=== PATIENT | female | born 1945 | race Caucasian/White ===

== ENCOUNTER 2020-08-05 08:29 | Inpatient (IN) | payer MEDICARE, OTHER ==
[~2020-08-05] VITALS: Ht 170.2 cm; Wt 107.6 kg
[2020-08-05] MEDS ORDERED: diphenhydrAMINE 25 MG TAB (BENADRYL) PO PRN (09:15)
[2020-08-05] MEDS ORDERED: ACETAMINOPHEN 325 MG TABLET PO PRN (09:15)
[2020-08-05] MEDS ORDERED: ONDANSETRON 4 MG (ZOFRAN) ORAL DISSOLVE TAB PO PRN (09:15)
[2020-08-05] MEDS ORDERED: guaiFENesin/CODEINE (ROBITUSSIN AC) 10ML UDC PO PRN (09:15)
[2020-08-05] MEDS ORDERED: LACTULOSE SYRUP 10GM/15ML (ENULOSE) 30ML UDC PO PRN (09:15)
[2020-08-05] MEDS ORDERED: DOCUSATE SODIUM 100 MG (COLACE) CAP PO PRN (09:15)
[2020-08-05] MEDS ORDERED: CALCIUM CARBONATE 500 MG (TUMS) TAB.CHEW PO PRN (09:15)
[2020-08-05] MEDS ORDERED: MELATONIN 3 MG TABLET PO PRN (09:15)
[2020-08-05] MEDS ORDERED: BISACODYL 10 MG SUPP (DULCOLAX) PR PRN (09:15)
[2020-08-05] MEDS ORDERED: LOPERAMIDE 2 MG (IMODIUM) TABLET PO PRN (09:15)
[2020-08-05] MEDS ORDERED: FLEET ENEMA ADULT 1 EA BTL PR PRN (09:15)
[2020-08-05] MEDS ORDERED: VIT500TA7 PO (09:52)
[2020-08-05] MEDS ORDERED: BALS750C7 PO (09:52)
[2020-08-05] MEDS ORDERED: NITR-65 PO (09:52)
[2020-08-05] MEDS ORDERED: CETI10TA17 PO (09:52)
[2020-08-05] MEDS ORDERED: [UNRECOGNIZED DRUG - CODE] PO (09:52)
[2020-08-05] MEDS ORDERED: LACT1CAP8 PO (09:52)
[2020-08-05] MEDS ORDERED: FLUT9.9S NSEACH (09:52)
[2020-08-05] MEDS ORDERED: HYDR25TA4 PO (09:52)
[2020-08-05] MEDS ORDERED: PARO20TA5 PO (09:52)
[2020-08-05] MEDS ORDERED: DICY10CA12 PO (09:52)
[2020-08-05] MEDS ORDERED: CRAN400T3 PO (09:52)
[2020-08-05] MEDS ORDERED: ASPI-1238 PO (09:52)
[2020-08-05] MEDS ORDERED: RAME8TAB24 PO (09:52)
[2020-08-05] MEDS ORDERED: MULT-1136 PO (09:52)
[2020-08-05] MEDS ORDERED: IPRA3AMP31 IH (09:52)
[2020-08-05] MEDS ORDERED: MAGN400T39 PO (09:52)
[2020-08-05] MEDS ORDERED: ATEN25TA PO (09:52)
[2020-08-05] MEDS ORDERED: PANT40TA52 PO (09:52)
[2020-08-05] MEDS ORDERED: TEMA15CA PO (09:52)
[2020-08-05] MEDS ORDERED: OXYB10TA29 PO (09:52)
--- NOTE | 2020-08-05 15:27 | PM&R Post Admission Assessment ---
PM&R HP Date of Visit: Aug 05, 2020 Time of Visit: 16:00 History of Present Illness CC: Recovery from bilateral knee arthroplasties by Dr South POD # 2 HPI: This is a 74yoWF clinic patient of Baldomero Johnston PCP and Dr Ashby Cardiology who lives in [place], [place] who presents from [facility] where she under went a bilateral knee replacements. She has had multiple falls recently and has a multi-level house. 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 She uses O2 prn an at night and needs a sleep study. She has a not had a BM yet but passing gas. Urination is normal. Labs remains stable. Checked meds and labs. Pain is controlled with Percocet. Past Opppunz-Xbhsgv-Benkrt Hx Past Med/Social Hx: Reviewed Nursing Past Med/Soc Hx, Reviewed and Corrections made Patient Social History Marrital Status: Employed/Student: retired Alcohol Use: Denies Use Smoking Status: Never a Smoker Immunizations Up To Date Date of Influenza Vaccine: Jan 28, 2020 Past Medical History Surgeries: Appendectomy, Eye Surgery, Hysterectomy, Orthopedic Respiratory: Asthma, Sleep Apnea night time hypoxia Currently Using CPAP: No Currently Using BIPAP: No Cardiac: Hypertension Gastrointestinal: Colitis, Gastroesophageal Reflux, Irritable Bowel Musculoskeletal: Arthritis Psychosocial: Sleep Difficulties, Anxiety, Depression PM&R Allergy/Meds/Data Review Allergies Coded Allergies: Sulfa (Sulfonamide Antibiotics) (Verified Allergy, Unknown, 08/05/20) hylan G-F 20 (Verified Allergy, Unknown, 08/05/20) metoclopramide (Verified Allergy, Unknown, 08/05/20) pregabalin (Verified Allergy, Unknown, 08/05/20) Home Medications Scheduled Aspirin (Aspirin EC), 81 MG PO DAILY, (Reported) Atenolol (Atenolol), 25 MG PO DAILY, (Reported) Balsalazide Disodium (Colazal), 1,500 MG PO TID, (Reported) Cetirizine HCl (Cetirizine HCl), 10 MG PO DAILY, (Reported) Cranberry Fruit (Cranberry), 400 MG PO BID, (Reported) Fluticasone Propionate (Flonase Allergy Relief), 2 SPRAY NSEACH HS, (Reported) Hydrochlorothiazide (Hydrochlorothiazide), 25 MG PO DAILY, (Reported) Lactobacillus Acidophilus (Acidophilus), 1 EACH PO DAILY, (Reported) Magnesium Oxide (Magnesium), 400 MG PO BID, (Reported) Multivitamin (Multivitamin), 1 EACH PO DAILY, (Reported) Nitrofurantoin Monohyd/M-Cryst (Macrobid 100 mg Capsule), 1 TAB PO DAILY, (Re ported) Oxybutynin Chloride (Oxybutynin Chloride ER), 10 MG PO DAILY, (Reported) Pantoprazole Sodium (Pantoprazole Sodium), 40 MG PO DAILY, (Reported) Paroxetine HCl (Paroxetine HCl), 20 MG PO HS, (Reported) Ramelteon (Ramelteon), 8 MG PO HS, (Reported) Temazepam (Temazepam), 15 MG PO HS, (Reported) Vit C/Ascorb Sod/Multivit-Min (Emergen-C 500 mg Chewable Tab), 1,000 MG PO TID, (Reported) Scheduled PRN Dicyclomine HCl (Dicyclomine HCl), 10 MG PO TID PRN for IBS, (Reported) Ipratropium/Albuterol Sulfate (Iprat-Albut 0.5-3(2.5) mg/3 ml), 3 ML IH Q6H PRN for SHORTNESS OF BREATH, (Reported) Discontinued Medications Ascorbic Acid/Multivit-Min (Emergen-C 1,000 mg Variety Pk), 1,000 MG PO, (Reported) Discontinued Reason: Duplicate Order Current Medications Current Medications Reviewed Review of Systems Constitutional: see HPI, malaise, weakness EENTM: no symptoms reported Respiratory: no symptoms reported Cardiovascular: no symptoms reported Gastrointestinal: constipation Genitourinary: no symptoms reported Musculoskeletal: joint pain Skin: no symptoms reported Psychiatric/Neurological: No Symptoms Reported All Other Systems Reviewed Negative Unless Noted: Yes Physical Exam Physical Exam Vital Signs Capillary Refill : Height, Weight, BMI Height: '" Weight: lbs. oz. kg; BMI Method: General Appearance: No Apparent Distress, WD/WN, Chronically ill, Obese Eyes: Bilateral Eye Normal Inspection, Bilateral Eye PERRL HEENT: PERRL/EOMI, Normal ENT Inspection, Pharynx Normal Neck: Full Range of Motion, Normal Inspection, Non Tender, Supple, Carotid Bruit Respiratory: Chest Non Tender, Lungs Clear, Normal Breath Sounds, No Accessory Muscle Use, No Respiratory Distress Cardiovascular: Regular Rate, Rhythm, No Edema, No Gallop, No JVD, No Murmur, Normal Peripheral Pulses Gastrointestinal: Normal Bowel Sounds, No Organomegaly, No Pulsatile Mass, Non Tender, Soft Back: Normal Inspection, No CVA Tenderness, No Vertebral Tenderness Extremity: Normal Capillary Refill, Normal Inspection, Normal Range of Motion, Non Tender, No Calf Tenderness, No Pedal Edema Neurologic/Psychiatric: Alert, Oriented x3, No Motor/Sensory Deficits, Normal Mood/Affect, rewriter II-XII Norm as Tested, Abnormal Gait, Motor Weakness (lower extremities) Skin: Normal Color, Warm/Dry Lymphatic: No Adenopathy PM&R Medical Assessment & Plan REHAB/MEDICAL ASSESSMENT AND PLAN: REHAB IMPAIRMENT GROUP: Bilateral knee replacements ETIOLOGIC DIAGNOSIS: Bilateral knee replacements The comorbidities that impact the patients function and/or functional outcome by: bilateral knee pain, hypoxia, suspected DEYA, falls REHAB PLAN: The patient is being admitted to our comprehensive inpatient rehabilitation facility and can tolerate the intensity of service consisting of at least: 180 minutes of therapy a day, 5 out of 7 days a week Rehab treatment will consist of: PT OT will focus on regaining function with bilateral knee replacements while managing pain and increase ADL's The patient/family has a good understanding of our discharge process and will benefit from an interdisciplinary inpatient rehabilitation program. The patient has potential to make improvement and is in need of at least two of the following multidisciplinary therapies including but not limited to physical, occupational, speech, and prosthetics and orthotics. Additionally the patient will need services from respiratory, nutritional services, wound care, psychology, etc. (Customize this to each patient). Given the patients complex condition and risk of further medical complications, rehabilitation services cannot be safely or effectively provided at a lower level of care such as a alf facility. BARRIERS TO DISCHARGE: Bilateral knee replacements ESTIMATED LOS: 7 days DISPOSITION: Home RELEVANT CHANGES SINCE PREADMISSION SCREENING: I have compared the patients medical and functional status at the time of the preadmission screening and there are: no changes PROGNOSIS: Good REHABILITATION GOALS: 1. PT OT will focus on regaining function with bilateral knee replacements while managing pain and increase ADL's All the above goals were reviewed with the patient and he/she is in agreement. By signing this document, I acknowledge that I have personally performed a full physical examination on this patient within 24 hours of admission to this inpatient rehabilitation facility and have determined the patient to be able to tolerate the above course of treatment at an intensive level for a reasonable period of time. I will be completing a detailed individualized Plan of Care for this patient by day #4 of the patients stay based upon the Preadmission Screen, the Post-Admission Evaluation, and the therapy evaluations. Admission Dx/Comorbidities: (1) Status post bilateral knee replacements ICD Codes: Z96.653 - Presence of artificial knee joint, bilateral (2) Ulcerative colitis ICD Codes: K51.90 - Ulcerative colitis, unspecified, without complications (3) DEYA (obstructive sleep apnea) ICD Codes: G47.33 - Obstructive sleep apnea (adult) (pediatric) (4) Nocturnal hypoxia ICD Codes: G47.34 - Idiopathic sleep related nonobstructive alveolar hypoventilation (5) Hypertension ICD Codes: I10 - Essential (primary) hypertension (6) GERD (gastroesophageal reflux disease) ICD Codes: K21.9 - Gastro-esophageal reflux disease without esophagitis Assessment/Plan Assessment and Plan Assess & Plan/Chief Complaint Assessment: Bilateral knee replacements POD # 2 DEYA Nocturnal hypoxia HTN GERD UC Post op constipation Plan: Monitor knee pain IRF protocol BM SHERRI Kong DO Aug 05, 2020 15:26
[2020-08-05] MEDS ORDERED: DICYCLOMINE 10 MG (BENTYL) CAP PO PRN (15:30)
--- NOTE | 2020-08-05 15:50 | Physical Therapy Evaluation ---
PT Evaluation-General Medical Diagnosis Admission Date Aug 05, 2020 at 14:24 Medical Diagnosis: bilateral total knee revisions Onset Date: Aug 03, 2020 Therapy Diagnosis Therapy Diagnosis: impaired mobility, strength, endurance, ROM Weight Bear Status Weight Bearing/Tolerated Weight Bearing/Tolerated Referral Physician: Sindhu Ayers DO Reason for Referral: Evaluation/Treatment Medical History Additional Medical History hearing loss, asthma, falls, joint pain CASTILLO, memory loss, insomnia, UTI, lactic acidosis, anxiety, arthritis, GERD, urinary incontinence, CTS release, plantar fasciitis Reviewed History: Yes Social History Home: Single Level Current Living Status: Spouse Entry Into Home: Level Entry Prior Prior Level of Function SCALE: Activities may be completed with or without assistive devices. 0-Spricnuhzm-oydrzee completes the activity by him/herself with no assistance from a helper. 5-Set-up or Clean-up Assistance-helper sets up or cleans up; patient completes activity. [place] assists only prior to or following the activity. 4-Supervision or Touching Assistance-helper provides verbal cues and/or touching/steadying and/or contact guard assistance as patient completes activity. Assistance may be provided throughout the activity or intermittently. 3-Partial/Moderate Assistance-helper does LESS THAN HALF the effort. [place] lifts, holds or supports trunk or limbs, but provides less than half the effort. 2-Substantial/Maximal Assistance-helper does MORE THAN HALF the effort. [place] lifts or holds trunk or limbs and provides more than half the effort. 3-Wiypqjebl-arnuxz does ALL the effort. Patient does none of the effort to complete the activity. Or, the assistance of 2 or more helpers is required for the patient to complete the activity. If activity was not attempted, code reason: 7-Patient Refused. 9-Not Applicable-not attempted and the patient did not perform the activity before the current illness, exacerbation or injury. 10-Not Attempted due to Environmental Limitations-(lack of equipment, weather restraints, etc.). 88-Not Attempted due to Medical Conditions or Safety Concerns. Bed Mobility: 6 Transfers (B,C,W/C): 6 Gait: 6 Stairs: 6 Indoor Mobility (Ambulation): Independent Stairs: Independent Patient was using a rolling walker just previous to surgeries PT Evaluation-Current Subjective Patient agrees to PT, has some pain in bilateral knees (/10). Will be co- treating after PT eval due to poor patient mobility, strength, endurance, pain with activity, coordinate UE and LE during activity, safety and reduce risk of falls. Pt/Family Goals to be independent at home Objective Patient Orientation: Person, Place, Situation Attachments: Oxygen ROM/Strength ROM Lower Extremities left knee (flexion 92 degrees, extension +2 degrees), right knee (flexion 109 degrees, has full extension) Sensory Hearing: Impaired Sensation Right Lower Extremit: Intact Sensation Left Lower Extremity: Intact Sensation Lower Extremities Patient states she has some numbness on the bottom of her feet Transfers Roll Left & Right (QC): 6 Sit to Lying (QC): 4 (SBA) Lying to Sitting/Side of Bed(Q: 4 (SBA) Sit to Stand (QC): 4 (CGA) Chair/Cgg-qe-Vjunr Xfer(QC): 4 (CGA) Toilet Transfer (QC): 4 (CGA) Car Transfer (QC): 4 (CGA) Patient performs bed mobility with independence, supine <-> sit with SBA, sit <- > stand and transfers with CGA, car transfer CGA. Occasional cues for hand placement or positioning. Gait Does the Patient Walk?: Yes Mode of Locomotion: Walk Anticipated Mode of Locomotion: Walk Walk 10 feet (QC): 4 Walk 50 ft with 2 Turns(QC): 4 Walk 150 ft (QC): 4 Walking 10ft/uneven surface-QC: 4 Distance: 200', 50', 120', 300'x2 Gait Assistive Device: FWW Comments/Gait Description Patient can ambulate 300' with a rolling walker with CGA (including 50' with at least 2 turns of 90 degrees and 10' over an uneven surface), gait is antalgic and slow Wheelchair Training Does the Pt Use a Wheelchair?: No Wheel 50 ft with 2 turns (QC): 9 Wheel 150 ft (QC): 9 Stairs #of Steps: 1 1 Step (curb) (QC): 4 4 Steps (QC): 88 12 Steps (QC): 88 Walking Assistive Device: Walker Patient can go up and down 1 step using a rolling walker with CGA, cues for foot placement Balance Sitting Static: Normal Sitting Dynamic: Normal Standing Static: Good Standing Dynamic: Good Picking up an Object (QC): 4 Treatment Bathing and dressing. PT performed bed mobility and transfers, ambulation, stair training, assisted with balance and positioning during bathing and dressing, OT worked on bathing and dressing, UE positioning and safety during activity. Also donned CPM, fit to patient's leg and set to 60/-2. Patient in bed post tx with nurse call, phone, tray, all needs met. Assessment/Needs Patient has impaired mobility, strength, endurance, ROM. Patient is CGA with transfers and ambulation. Bilateral knee ROM is coming along well for this point after surgery. Rehab Potential: Fair PT Short Term Goals Short Term Goals Time Frame: August 12, 2020 Roll Left & Right: 6 Sit to lyin Lying to sitting on side of be: 6 Sit to stand: 5 Chair/bwh-ea-rvlrh transfer: 5 Walk 10 feet: 5 Walk 50 feet with two turns: 5 Walk 150 feet: 5 PT Composition Weatherboard Installer Goals Composition Weatherboard Installer Goals PT Composition Weatherboard Installer Goals Time Frame: August 26, 2020 Roll Left & Right (QC): 6 Sit to Lying (QC): 6 Lying-Sitting on Side/Bed(QC): 6 Sit to Stand (QC): 6 Chair/Alw-xd-Wbvpq Xfer(QC): 6 Toilet Transfer (QC): 6 Car Transfer (QC): 6 Does the Patient Walk: Yes Walk 10 feet (QC): 6 Walk 50ft with 2 Turns (QC): 6 Walk 150 ft (QC): 6 Walking 10ft on Uneven Surface: 6 1 Step (curb) (QC): 6 4 Steps (QC): 6 12 Steps (QC): 88 Picking up an Object (QC): 6 Wheel 50 feet with 2 turns (QC: 9 Wheel 150 feet: 9 PT Plan Problem List Problem List: Activity Tolerance, Functional Strength, Safety, Balance, Gait, Transfer, Bed Mobility, ROM Treatment/Plan Treatment Plan: Continue Plan of Care Treatment Plan: Bed Mobility, Education, Functional Activity Ian, Functional Strength, Group Therapy, Gait, Safety, Therapeutic Exercise, Transfers Treatment Duration: August 26, 2020 Frequency: At least 5 of 7 days/Wk (IRF) Estimated Hrs Per Day: 1.5 hours per day Patient and/or Family Agrees t: Yes Safety Risks/Education Patient Education: Gait Training, Transfer Techniques, Steps, Correct Positioning, Safety Issues Teaching Recipient: Patient Teaching Methods: Demonstration, Discussion Response to Teaching: Reinforcement Needed Discharge Recommendations Plan Patient will perform bed mobility and transfer training, balance and endurance training, functional strengthening, stair training, gait training, and education, to improve functional mobility and independence at home. Therapy Discharge Recommendati: Home & Family Time/GCodes Time In: 0 Time Out: 1600 Total Billed Treatment Time: 90 Total Billed Treatment 1 visit EVM 10' FA 80' PT eval from [id number], OT eval from [id number], co-treat with OT from [id number] RADHA WALLACE PT Aug 05, 2020 15:50
--- NOTE | 2020-08-05 16:10 | Occupational Therapy Eval ---
OT Evaluation-General/PLF Medical Diagnosis Admission Date Aug 05, 2020 at 14:24 Medical Diagnosis: B TKA with revisions bilaterally Onset Date: Aug 03, 2020 Therapy Diagnosis Therapy Diagnosis: Decreased ADL status Precautions Precautions/Isolations: Standard Precautions Weight Bear Status Weight Bearing Restriction: Weight Bearing/Tolerated Referral Physician: Sindhu Ayers DO Referral Reason: Activity Tolerance, Self Care, Evaluation/Treatment, Strengthening/ROM Medical History Additional Medical History hearing loss, asthma, falls, joint pain CASTILLO, memory loss, insomnia, UTI, lactic acidosis, anxiety, arthritis, GERD, urinary incontinence, CTS release, plantar fasciitis Current History Bilateral TKA with painful hardware 1-2 years prior, 08/03 revision surgery. Reviewed History: Yes Social History Home: Single Level Current Living Status: Spouse Entry Into Home: Level Entry Steps Into Home: 0 ADL-Prior Level of Function SCALE: Activities may be completed with or without assistive devices. 5-Yvmsbjcfvl-bgusokz completes the activity by him/herself with no assistance from a helper. 5-Set-up or Clean-up Assistance-helper sets up or cleans up; patient completes activity. [place] assists only prior to or following the activity. 4-Supervision or Touching Assistance-helper provides verbal cues and/or touching/steadying and/or contact guard assistance as patient completes activity. Assistance may be provided throughout the activity or intermittently. 3-Partial/Moderate Assistance-helper does LESS THAN HALF the effort. [place] lifts, holds or supports trunk or limbs, but provides less than half the effort. 2-Substantial/Maximal Assistance-helper does MORE THAN HALF the effort. [place] lifts or holds trunk or limbs and provides more than half the effort. 9-Ptxkiitll-iwvxwz does ALL the effort. Patient does none of the effort to complete the activity. Or, the assistance of 2 or more helpers is required for the patient to complete the activity. If activity was not attempted, code reason: 7-Patient Refused. 9-Not Applicable-not attempted and the patient did not perform the activity before the current illness, exacerbation or injury. 10-Not Attempted due to Environmental Limitations-(lack of equipment, weather restraints, etc.). 88-Not Attempted due to Medical Conditions or Safety Concerns. 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 Accompanied by , Elsi. OT/ PT witness car transfer, pt expresses 1/10 bilateral knee pain. Agrees to tx. Pt very pleasant/ safe. Mental Status/Objective Patient Orientation: Person, Place, Situation, Normal For Age Current Glasses/Contacts: No Hearing Aids: No Dentures/Partials: Yes Hand Dominance: Right Upper Extremity ROM WFL BUE Upper Extremity Coordination WFL BUE Upper Extremity Sensation WFL BUE Upper Extremity Strength WFL BUE ADL-Treatment Eating (QC): 6 Oral Hygiene (QC): 6 Shower/Bathe Self (QC): 4 (SBA, pt able to pick items off floor in stance when dropped. COmpletes LB in sit, UB/ hair in stance with good ability.) Upper Body Dressing (QC): 5 (s/u) Lower Body Dressing (QC): 3 (min A threading BLE due to increased fatigue post showering.) On/Off Footwear (QC): 2 (max A donning post shower due to fatigue.) Toileting Hygiene (QC): 4 (SBA in stance ) Other Treatments Pt car transfer with CGA. sits in w/c and wheeled to ARU. Educated on OT/ PT role and ARU expectations. PT evaluation: [id number] OT evaluation: [id number] OT/ PT co-treat to address functional activity tolerance/ safety with OT addressing UE movement, problem solving, ADLs and PT addressing LB movement, balance, and transfers. Pt completes UB screen with WFL all movements and MMT. Pt educated on UE ex program, completes 5 reps of 6/6 exercises. Demo's understanding with minimal cues. Educated to complete 15-20 reps 2x daily over the weekend with no OT through weekend. Pt agrees. Pt ambulates through [place] (see PT for distance) with CGA, fair ability/ endurance. Upon sit to stand, pt expresses increased dizziness. Pt's vitals assessed with 137/67 BP and states that systolic is higher than normal. Pt able to ambulate to room without c/o dizzy. Pt expresses goals as she desires to increase "stamina, and decrease pain." Expresses an increase to 7/10 pain in bilateral knees post ambulation. Pt agrees to showering. Shower transfer with CGA/ min cues, showers and dresses as outlined. Pt is assisted to bed with all needs met, call light in reach, present. Education OT Patient Education: Correct positioning, Exercise program, Home exercise program, Purpose of tx/functional activities, Rehab process, Safety issues, Transfer techniques Teaching Recipient: Patient Teaching Methods: Demonstration, Discussion Response to Teaching: Verbalize Understanding, Return Demonstration OT Short Term Goals Short Term Goals Shower/bathe self: 5 Upper body dressin Lower body dressin Putting on/taking off footwear: 3 OT Anesthesia Resident Goals Anesthesia Resident Goals Time Frame: August 19, 2020 Eating (QC): 6 Oral Hygiene (QC): 6 Toileting Hygiene (QC): 6 Shower/Bathe Self (QC): 6 Upper Body Dressing (QC): 6 Lower Body Dressing (QC): 6 On/Off Footwear (QC): 6 Additional Goals: 1-Demonstrate ADL Tasks, 2-Verbalize Understanding, 3- ImproveStrength/Ian 1=Demonstrate adherence to instructed precautions during ADL tasks. 2=Patient will verbalize/demonstrate understanding of assistive devices/modifications for ADL. 3=Patient will improve strength/tolerance for activity to enable patient to perform ADL's. OT Education/Plan Problem List/Assessment Assessment: Decreased Activ Tolerance, Dependent Transfers, Impaired I ADL's, Impaired Self-Care Skills Discharge Recommendations Plan/Recommendations: Continue POC Therapy Discharge Recommendati: Home & Family Treatment Plan/Plan of Care Treatment,Training & Education: Yes Patient would benefit from OT for education, treatment and training to promote independence in ADL's, mobility, safety and/or upper extremity function for ADL's. Plan of Care: ADL Retraining, Caregiver Training, Functional Mobility, Group Exercise/Act as Ind, UE Funct Exercise/Act Treatment Duration: August 19, 2020 Frequency: At least 5 of 7 days/Wk (IRF) Estimated Hrs Per Day: 1.5 hours per day Agreement: Yes Rehab Potential: Good Time/GCodes Start Time: 14:20 Stop Time: 16:10 Total Time Billed (hr/min): 100 Billed Treatment Time PT evaluation: [id number] OT evaluation: [id number] (10) OT/ PT co-treat: [id number] (90) OT/ PT co-treat to address functional activity tolerance/ safety with OT addressing UE movement, problem solving, ADLs and PT addressing LB movement, balance, and transfers. 1, EVM (10), EX 2, ADL 3= 100 KATERIN HINKLE OTR Aug 05, 2020 16:10
[2020-08-05] MEDS: oxyCODONE/APAP 5/325MG (PERCOCET 5) TABLET PO PRN ×2 (16:34→21:57)
[2020-08-05 16:39] VITALS: BP 140/67
[2020-08-05] MEDS ORDERED: PATIENT MAY USE OWN MED,SINGLE MED PO SCH (17:00)
[2020-08-05] MEDS: DOCUSATE SODIUM 100 MG (COLACE) CAP PO SCH (19:50)
[2020-08-05] MEDS: polyethylene glycoL POWDER 17 GM (MIRALAX) PACK PO SCH (19:50)
[2020-08-05] MEDS: SENNA W/DOCUSATE (SENOKOT S) TABLET PO SCH (19:51)
[2020-08-05 20:00] VITALS: BP 145/75
[2020-08-05] MEDS: FLUTICASONE NASAL SPRAY (FLONASE) 16 GM BTL NS SCH (20:39)
[2020-08-05] MEDS: BALSALAZIDE 750 MG PO SCH (20:41)
[2020-08-05] MEDS: PARoxetine 20 MG (PAXIL) TAB PO SCH (20:42)
[2020-08-05] MEDS: RAMELTEON 8 MG (ROZEREM) TAB PO SCH (20:42)
[2020-08-05] MEDS: TEMAZEPAM 15 MG (RESTORIL) CAP PO SCH (20:42)
[2020-08-05] MEDS: MAGNESIUM OXIDE (MAG-OX)400 MG TAB PO SCH (20:42)
[2020-08-05] MEDS ORDERED: MULTIVIT MIN PO SCH (21:00)
[2020-08-05] MEDS ORDERED: ASCORB SOD PO SCH (21:00)
[2020-08-05] MEDS ORDERED: [UNRECOGNIZED DRUG - OTHER] PO SCH (21:00)
[2020-08-05] MEDS ORDERED: VIT C PO SCH (21:00)
[2020-08-05] MEDS ORDERED: NON-FORMULARY MEDICATION 1 EA EA (Magnesium Oxide (Magnesium) 400 MG) PO SCH (21:00)
[2020-08-05] MEDS ORDERED: NON-FORMULARY MEDICATION 1 EA EA (Fluticasone Propionate (Flonase Allergy Relief) 2 SPRAY) NSEACH SCH (21:00)
[2020-08-05] MEDS ORDERED: NON-FORMULARY MEDICATION 1 EA EA (Cranberry Fruit (Cranberry) 400 MG) PO SCH (21:00)
[2020-08-06] VITALS (7 sets, daily range): BP systolic 92–138; BP diastolic 42–68
[2020-08-06 05:58] LABS: BASOPHILS % (AUTO) 0 % (0-10); EOSINOPHILS # (AUTO) 0.1 10^3/uL (0.0-0.3); EOSINOPHILS % (AUTO) 1 % (0-10); HEMATOCRIT 33 % (35-52); HEMOGLOBIN 10.6 g/dL (11.5-16.0); LYMPHOCYTES # (AUTO) 2.1 10^3/uL (1.0-4.0); LYMPHOCYTES % (AUTO) 30 % (12-44); MEAN CORPUSCULAR HEMOGLOBIN 32 pg (25-34); MEAN CORPUSCULAR HGB CONC 33 g/dL (32-36); MEAN CORPUSCULAR VOLUME 97 fL (80-99); MEAN PLATELET VOLUME 9.7 fL (9.0-12.2); MONOCYTES # (AUTO) 0.6 10^3/uL (0.0-1.0); MONOCYTES % (AUTO) 8 % (0-12); NEUTROPHILS # (AUTO) 4.3 10^3/uL (1.8-7.8); NEUTROPHILS % (AUTO) 61 % (42-75); PLATELET COUNT 178 10^3/uL (130-400)
[2020-08-06 06:23] LABS: ALANINE AMINOTRANSFERASE 21 U/L (0-55); ALBUMIN 3.1 GM/DL (3.2-4.5); ALKALINE PHOSPHATASE 59 U/L (40-136); BILIRUBIN,TOTAL 0.2 MG/DL (0.1-1.0); BUN/CREATININE RATIO 22; CALCIUM 7.9 MG/DL (8.5-10.1); CARBON DIOXIDE 30 MMOL/L (21-32); CHLORIDE 104 MMOL/L (98-107); CREATININE SERUM 0.82 MG/DL (0.60-1.30); GFR ESTIMATED > 60; GLUCOSE 115 MG/DL (70-105); POTASSIUM 3.8 MMOL/L (3.6-5.0); SODIUM 139 MMOL/L (135-145); TOTAL PROTEIN 5.6 GM/DL (6.4-8.2)
[2020-08-06] MEDS: MULTIVIT W/MINERALS TAB (THERAGRAN M) PO SCH (06:32)
[2020-08-06] MEDS: NITROFURANTOIN 100 MG (MACROBID) CAPSULE PO SCH (06:32)
[2020-08-06] MEDS: oxyCODONE/APAP 5/325MG (PERCOCET 5) TABLET PO PRN ×3 (06:32→21:05)
[2020-08-06] MEDS: LORATADINE (CLARITIN) 10 MG TAB PO SCH (07:51)
[2020-08-06] MEDS: MAGNESIUM OXIDE (MAG-OX)400 MG TAB PO SCH ×2 (07:51→21:04)
[2020-08-06] MEDS: LACTOBACILLUS ACIDOPHILUS (PROBIOTIC) CAPSULE PO SCH (07:52)
[2020-08-06] MEDS: OXYBUTYNIN (DITROPAN) 5 MG TAB PO SCH ×2 (07:52→21:04)
[2020-08-06] MEDS: PANTOPRAZOLE 40 MG (PROTONIX) TAB PO SCH (07:52)
[2020-08-06] MEDS: ATENOLOL 25 MG (TENORMIN) TAB PO SCH (07:52)
[2020-08-06] MEDS: ASPIRIN E.C. 81 MG (ECOTRIN) TAB PO SCH (07:52)
[2020-08-06] MEDS: BALSALAZIDE 750 MG PO SCH ×3 (07:53→21:03)
--- NOTE | 2020-08-06 08:45 | Physical Therapy Daily Note ---
PT Daily Note-Current Subjective Patient in bed pre tx, agrees to PT, states she has very little pain right now. Appearance Patient in bed post tx with nurse call, phone, tray, all needs met, polar care on bilaterally Mental Status Patient Orientation: Person, Place, Situation, Normal For Age Attachments: Oxygen Transfers SCALE: Activities may be completed with or without assistive devices. 7-Krgthhqomq-lqltxci completes the activity by him/herself with no assistance from a helper. 5-Set-up or Clean-up Assistance-helper sets up or cleans up; patient completes activity. [place] assists only prior to or following the activity. 4-Supervision or Touching Assistance-helper provides verbal cues and/or touching/steadying and/or contact guard assistance as patient completes activity. Assistance may be provided throughout the activity or intermittently. 3-Partial/Moderate Assistance-helper does LESS THAN HALF the effort. [place] lifts, holds or supports trunk or limbs, but provides less than half the effort. 2-Substantial/Maximal Assistance-helper does MORE THAN HALF the effort. [place] lifts or holds trunk or limbs and provides more than half the effort. 2-Mjdqltoks-nunubn does ALL the effort. Patient does none of the effort to complete the activity. Or, the assistance of 2 or more helpers is required for the patient to complete the activity. If activity was not attempted, code reason: 7-Patient Refused. 9-Not Applicable-not attempted and the patient did not perform the activity before the current illness, exacerbation or injury. 10-Not Attempted due to Environmental Limitations-(lack of equipment, weather restraints, etc.). 88-Not Attempted due to Medical Conditions or Safety Concerns. Roll Left & Right (QC): 6 Sit to Lying (QC): 6 Lying to Sitting/Side of Bed(Q: 6 Sit to Stand (QC): 4 Weight Bearing Weight Bearing/Tolerated Weight Bearing/Tolerated Gait Training Distance: 300' Walk 10 feet (QC): 4 Walk 50 ft with 2 Turns(QC): 4 Walk 150 ft (QC): 4 Gait Persons Needed: 1 Gait Assistive Device: FWW ambulation still slow but improved knee flexion during ambulation Exercises Supine Ex: Ankle pumps, Quad Set, Heel Slides, Short Arc Quads, Straight leg raise Supine Reps: 20 Treatments bed mobility and transfers, ambulation, LE exercise Assessment Current Status: Fair Progress improving functional mobility PT Short Term Goals Short Term Goals Time Frame: August 12, 2020 Roll Left & Right: 6 Sit to lyin Lying to sitting on side of be: 6 Sit to stand: 5 Chair/rax-op-xjapj transfer: 5 Walk 10 feet: 5 Walk 50 feet with two turns: 5 Walk 150 feet: 5 PT Proposal Director Goals Jail Goals PT Jail Goals Time Frame: August 26, 2020 Roll Left & Right (QC): 6 Sit to Lying (QC): 6 Lying-Sitting on Side/Bed(QC): 6 Sit to Stand (QC): 6 Chair/Yfb-oo-Qbzad Xfer(QC): 6 Toilet Transfer (QC): 6 Car Transfer (QC): 6 Does the Patient Walk: Yes Walk 10 feet (QC): 6 Walk 50ft with 2 Turns (QC): 6 Walk 150 ft (QC): 6 Walking 10ft on Uneven Surface: 6 1 Step (curb) (QC): 6 4 Steps (QC): 6 12 Steps (QC): 88 Picking up an Object (QC): 6 Wheel 50 feet with 2 turns (QC: 9 Wheel 150 feet: 9 PT Plan Problem List Problem List: Activity Tolerance, Functional Strength, Safety, Balance, Gait, Transfer, Bed Mobility, ROM Treatment/Plan Treatment Plan: Continue Plan of Care Treatment Plan: Bed Mobility, Education, Functional Activity Ian, Functional Strength, Group Therapy, Gait, Safety, Therapeutic Exercise, Transfers Treatment Duration: August 26, 2020 Frequency: At least 5 of 7 days/Wk (IRF) Estimated Hrs Per Day: 1.5 hours per day Patient and/or Family Agrees t: Yes Safety Risks/Education Patient Education: Gait Training, Transfer Techniques, Correct Positioning, Safety Issues Teaching Recipient: Patient Teaching Methods: Demonstration, Discussion Response to Teaching: Reinforcement Needed Time/GCodes Time In: 818 Time Out: 837 Total Billed Treatment Time: 19 Total Billed Treatment 1 visit FA 19' RADHA WALLACE PT August 06, 2020 08:45
[2020-08-06] MEDS ORDERED: RX-NITROFURANTOIN 100 MG (MACROBID) CAP PPK#2 PO SCH (09:00)
[2020-08-06] MEDS ORDERED: NON-FORMULARY MEDICATION 1 EA EA (Multivitamin 1 EACH) PO SCH (09:00)
[2020-08-06] MEDS ORDERED: NON-FORMULARY MEDICATION 1 EA EA (Lactobacillus Acidophilus (Acidophilus) 1 EACH) PO SCH (09:00)
[2020-08-06] MEDS ORDERED: NON-FORMULARY MEDICATION 1 EA EA (Oxybutynin Chloride (Oxybutynin Chloride ER) 10 MG) PO SCH (09:00)
[2020-08-06] MEDS ORDERED: NON-FORMULARY MEDICATION 1 EA EA (Cetirizine HCl 10 MG) PO SCH (09:00)
--- NOTE | 2020-08-06 10:41 | Individualized Plan of Care ---
Individualized Plan of Care Rehab Nursing IPOC Order Admission Date Aug 05, 2020 at 14:24 Current Orders Orders Admission Order(Inpt,Obs,Sdc) (08/05/20 09:12) Vital Signs: Per Unit Policy ( 08,16,00 (08/05/20 09:12) Karan Rodríguez (08/05/20 09:12) Sequential Compression Device .admit (08/05/20 09:12) Medical Consultant-Inpt Rehab Con (08/05/20 09:12) Rehab Nursing Orders-Ipoc (08/05/20 09:12) Physical Therapy Rehab Orders (08/05/20 09:12) Occupational Therapy Rehab Ord (08/05/20 09:12) Speech Therapy Rehab Orders (08/05/20 09:12) Cbc With Automated Diff (08/06/20 06:00) Comprehensive Metabolic Panel (08/06/20 06:00) Precautions (Aru) (08/05/20 09:12) Weekly Weight WEEK (08/05/20 09:12) Rehab-Intensity Of Therapy (08/05/20 09:12) Initiate Admission Nursing Pro .admission (08/05/20 09:12) Acetaminophen Tablet/Caplet (Tylenol T (08/05/20 09:15) Alprazolam Tablet (Xanax Tablet) (08/05/20 09:15) Calcium Carbonate Chew Tablet (Antacid C (08/05/20 09:15) Diphenhydramine Tablet (Benadryl Tablet) (08/05/20 09:15) Docusate Sodium Capsule (Colace Capsule) (08/05/20 21:00) Docusate Sodium Capsule (Colace Capsule) (08/05/20 09:15) Bisacodyl Suppository (Dulcolax Supposit (08/05/20 09:15) Lactulose Oral Solution (Enulose Oral So (08/05/20 09:15) Na Phos/Na Biphos Enema (Fleet Enema Subhash (08/05/20 09:15) Guaifenesin/Codeine Syrup (Robitussin Ac (08/05/20 09:15) Loperamide Tablet (Imodium Tablet) (08/05/20 09:15) Melatonin Tablet (Melatonin Tablet) (08/05/20 09:15) Polyethylene Glycol Powder Pkt (Miralax (08/05/20 21:00) Ondansetron Oral Dissolve Tab (Zofran (08/05/20 09:15) Senna S Tablet (Senokot S Tablet) (08/05/20 21:00) Initiate Admission Nursing Pro .admission (08/05/20 09:12) Code/Resuscitation (08/05/20 09:12) Admission Arrival Bed Request (08/05/20 14:23) Aspirin Enteric Coated Tablet (Ecotrin T (08/06/20 09:00) Atenolol Tablet (Tenormin Tablet) (08/06/20 09:00) Dicyclomine Capsule (Bentyl Capsule) (08/05/20 15:30) Hydrochlorothiazide Cap/Tablet (Hctz Cap (08/06/20 09:00) Albuterol/Ipra Inhalation Soln (Duoneb I (08/05/20 15:30) Rx-Nitrofurantoin [place] (Rx-Macrobid) (08/06/20 09:00) Pantoprazole Tablet (Protonix Tablet) (08/06/20 09:00) Paroxetine Tablet (Paxil Tablet) (08/05/20 21:00) Ramelteon Tablet (Rozerem Tablet) (08/05/20 21:00) Temazepam Capsule (Restoril Capsule) (08/05/20 21:00) (Nf) Balsalazide Disodium (Colazal) (08/05/20 21:00) (Nf) Cetirizine Hcl (08/06/20 09:00) (Nf) Cranberry Fruit (Cranberry) (08/05/20 21:00) (Nf) Fluticasone Propionate (Flonase All (08/05/20 21:00) (Nf) Lactobacillus Acidophilus (Acidophi (08/06/20 09:00) (Nf) Magnesium Oxide (Magnesium) (08/05/20 21:00) (Nf) Multivitamin (08/06/20 09:00) (Nf) Oxybutynin Chloride (Oxybutynin Chl (08/06/20 09:00) (Nf) Vit C/Ascorb Sod/Multivit-Min (Sandra (08/05/20 21:00) Oxycodone/Apap 5/325mg Tablet (Percocet (08/05/20 15:30) Tizanidine Tablet (Zanaflex Tablet) (08/05/20 15:30) Fluticasone Nasal [place] (Flonase Nasal S (08/05/20 21:00) Lactobacillus Acidophilus Cap (Acidophil (08/06/20 09:00) Magnesium Oxide Tablet (Mag Ox Tablet) (08/05/20 21:00) Therapeutic Multivitamin Tab (Vitamins, (08/06/20 07:00) Loratadine Tablet (Claritin Tablet) (08/06/20 09:00) Nitrofurantoin Capsule,Macro (Macrobid C (08/06/20 07:00) Oxybutynin Tablet (Ditropan Tablet) (08/06/20 09:00) Patient May Use Own Med,Single (Patient (08/05/20 17:00) General/Regular (08/05/20 Dinner) Nursing Communication (Order) (08/05/20 19:48) Patient Visit (08/06/20 ) Functional Activities, Ea 15 (08/06/20 ) Ns Iv 500 Ml (Sodium Chloride 0.9%) (08/06/20 13:00) Ns Iv 500 Ml (Sodium Chloride 0.9%) (08/06/20 13:00) Rehab Nursing Orders: Ongoing Assess. of Cognitive Status, Ongoing Assess. of Function Status, Bladder Management, Bladder Scan, Bladder Training, Bowel Management, Bowel Training, Disease Management & Educaiton, DVT Prophylaxis, Fall Prevention, Fluid/Electrolyte/Nutrition Mgmt, Infection Prevention, Medication Management & Education, Management of Risks & Complications, Nutrition Management, Pain Management, Patient/Family Support, Safety Management Intensity of Therapy to be met Patient to be seen: Min.3h per day/5 of 7d PT IPOC Problem List: Activity Tolerance, Functional Strength, Safety, Balance, Gait, Transfer, Bed Mobility, ROM Treatment Plan: Continue Plan of Care Bed Mobility, Education, Functional Activity Ian, Functional Strength, Group Therapy, Gait, Safety, Therapeutic Exercise, Transfers Treatment Duration: August 26, 2020 Frequency: At least 5 of 7 days/Wk (IRF) Estimated Hrs Per Day: 1.5 hours per day OT IPOC Problems: Decreased Activ Tolerance, Dependent Transfers, Impaired I ADL's, Impaired Self-Care Skills OT Treatment, Training and Edu: Yes Plan of Care: ADL Retraining, Caregiver Training, Functional Mobility, Group Exercise/Act as Ind, UE Funct Exercise/Act Treatment Duration: August 19, 2020 Frequency: At least 5 of 7 days/Wk (IRF) Estimated Hrs Per Day: 1.[address] IPOC Speech Therapy Treatment Plan: Discontinue ST, Goals Met Treatment Duration: Aug 05, 2020 Frequency: Modified Program (IRF) Estimated Hrs Per Day: Other Medical Consultant/Case Mgmt Medical Consultant/Case Managemen: Discharge Planning Dietitian/Refrigerator Repairman Dietitian/Refrigerator Repairman to monitor nutritional status and make changes and/or recommendations as needed and work with speech pathology on dietary upgrades as the occur. Physician IPOC Medical Issues being managed closely and that require the 24 hour availability of a physician: Recent bilateral knee replacements with severe pain and nocturnal hypoxia with hypotension and weakness after diarrhea once laxatives were effective requiring IVF will need close monitoring Medical Issues: Bowel/Bladder Function, DVT Prophylaxis, Falls Precautions, Fluid/Electrolyte/Nutrition Balance, Infection Protection, Pain Management Brief Synthesis of Preadmission Screen, Post-Admission Evaluation, and Therapy Evaluations: PT OT will focus on regaining function with ambulation and prevent falls while OT will help increase ADL independence in order to return home to independence Medical Prognosis: Good Anticipated Length of Stay: 6 days SHERRI CARBAJAL DO August 06, 2020 10:41
--- NOTE | 2020-08-06 10:41 | PM&R Progress Note ---
Subjective HPI/CC On Admission Date Seen by Provider: August 06, 2020 Time Seen by Provider: 10:45 Subjective/Events-last exam 08/06/20: Patient doing well Diarrhea all night after suppository and laxatives were given since post op Dizziness and mild hypotension noted so holding HCTZ and Atenolol RN called me back later and told me her BP was 92/50 and she felt weak so ordered NS 500cc IV bolus then 100cc/hr Labs reviewed today no evidence of sepsis No fever no elevated wbc Review of Systems General: Fatigue Musculoskeletal: leg pain Objective Exam Vital Signs Vital Signs Date Time Temp Pulse Resp B/P (MAP) Pulse Ox O2 Delivery O2 Flow Rate FiO2 08/06/20 14:39 100 Nasal Cannula 1.00 08/06/20 13:03 57 102/56 (71) 08/06/20 08:59 36.8 18 Capillary Refill : General Appearance: No Apparent Distress, WD/WN, Chronically ill, Obese HEENT: PERRL/EOMI, Normal ENT Inspection, Pharynx Normal Neck: Full Range of Motion, Normal Inspection, Non Tender, Supple, Carotid Bruit Respiratory: Chest Non Tender, Lungs Clear, Normal Breath Sounds, No Accessory Muscle Use, No Respiratory Distress Cardiovascular: Regular Rate, Rhythm, No Edema, No Gallop, No JVD, No Murmur, Normal Peripheral Pulses Gastrointestinal: Normal Bowel Sounds, No Organomegaly, No Pulsatile Mass, Non Tender, Soft Back: Normal Inspection, No CVA Tenderness, No Vertebral Tenderness Extremity: Normal Capillary Refill, Normal Inspection, Normal Range of Motion, Non Tender, No Calf Tenderness, No Pedal Edema Neurologic/Psychiatric: Alert, Oriented x3, No Motor/Sensory Deficits, Normal Mood/Affect, 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 FIM Transfers Therapy Code Descriptions/Definitions Functional [place] Measure: 0=Not Assessed/NA 4=Minimal Assistance 1=Total Assistance 5=Supervision or Setup 2=Maximal Assistance 6=Modified [place] 3=Moderate Assistance 7=Complete IndependenceSCALE: Activities may be completed with or without assistive devices. 6-Kwkoktagag-hwmmcof completes the activity by him/herself with no assistance from a helper. 5-Set-up or Clean-up Assistance-helper sets up or cleans up; patient completes activity. [place] assists only prior to or following the activity. 4-Supervision or Touching Assistance-helper provides verbal cues and/or touching/steadying and/or contact guard assistance as patient completes activity. Assistance may be provided throughout the activity or intermittently. 3-Partial/Moderate Assistance-helper does LESS THAN HALF the effort. [place] lifts, holds or supports trunk or limbs, but provides less than half the effort. 2-Substantial/Maximal Assistance-helper does MORE THAN HALF the effort. [place] lifts or holds trunk or limbs and provides more than half the effort. 4-Qzunqgkzk-teobsx does ALL the effort. Patient does none of the effort to complete the activity. Or, the assistance of 2 or more helpers is required for the patient to complete the activity. If activity was not attempted, code reason: 7-Patient Refused. 9-Not Applicable-not attempted and the patient did not perform the activity before the current illness, exacerbation or injury. 10-Not Attempted due to Environmental Limitations-(lack of equipment, weather restraints, etc.). 88-Not Attempted due to Medical Conditions or Safety Concerns. Roll Left to Right (QC): 6 Sit to Lying (QC): 6 Sit to Stand (QC): 4 Chair/Kqa-sq-Rhucy Xfer(QC): 4 (CGA) Car Transfer (QC): 4 (CGA) Gait Training Does the Patient Walk?: Yes Distance: 300' Walk 10 feet (QC): 4 Walk 50 ft with 2 Turns(QC): 4 Walk 150 ft (QC): 4 Walking 10ft/uneven surface-QC: 4 Gait Persons Needed: 1 Gait Assistive Device: FWW Wheelchair Training Does the Pt Use a Wheelchair?: No Wheel 50 ft with 2 turns (QC): 9 Wheel 150 ft (QC): 9 Stair Training #of Steps: 1 1 Step (curb) (QC): 4 4 Steps (QC): 88 12 Steps (QC): 88 Balance Picking up an Object (QC): 4 ADL-Treatment Eating (QC): 6 Oral Hygiene (QC): 6 Shower/Bathe Self (QC): 4 (SBA, pt able to pick items off floor in stance when dropped. COmpletes LB in sit, UB/ hair in stance with good ability.) Upper Body Dressing (QC): 5 (s/u) Lower Body Dressing (QC): 3 (min A threading BLE due to increased fatigue post showering.) On/Off Footwear (QC): 2 (max A donning post shower due to fatigue.) Toileting Hygiene (QC): 4 (SBA in stance ) Assessment/Plan Assessment and Plan Assess & Plan/Chief Complaint Assessment: Bilateral knee replacements POD # 2 DEYA Nocturnal hypoxia HTN GERD UC Post op constipation now resolved Hypotension with weakness prompting IVF 08/06/20 Plan: Monitor knee pain IRF protocol BM regimen 08/06/20: Monitor dizziness Give IVF Hold BP meds (1) Status post bilateral knee replacements (2) Ulcerative colitis (3) DEYA (obstructive sleep apnea) (4) Nocturnal hypoxia (5) Hypertension (6) GERD (gastroesophageal reflux disease) SHERRI CARBAJAL DO August 06, 2020 10:41
[2020-08-06] MEDS: DOCUSATE SODIUM 100 MG (COLACE) CAP PO SCH ×2 (11:23→19:38)
[2020-08-06] MEDS: SENNA W/DOCUSATE (SENOKOT S) TABLET PO SCH ×2 (11:23→19:38)
[2020-08-06] MEDS: polyethylene glycoL POWDER 17 GM (MIRALAX) PACK PO SCH ×2 (11:23→19:38)
[2020-08-06] MEDS ORDERED: NS IV 500 ML 500 ML IV SCH (13:00)
[2020-08-06] MEDS: NS IV 500 ML 500 ML IV SCH ×2 (13:01→16:11)
[2020-08-06] MEDS: RT-ALBUTEROL/IPRATROPIUM 3 ML (DUONEB) VIAL IH PRN (14:39)
[2020-08-06] MEDS: FLUTICASONE NASAL SPRAY (FLONASE) 16 GM BTL NS SCH (21:03)
[2020-08-06] MEDS: PARoxetine 20 MG (PAXIL) TAB PO SCH (21:04)
[2020-08-06] MEDS: RAMELTEON 8 MG (ROZEREM) TAB PO SCH (21:04)
[2020-08-06] MEDS: TEMAZEPAM 15 MG (RESTORIL) CAP PO SCH (21:04)
[2020-08-07] MEDS: oxyCODONE/APAP 5/325MG (PERCOCET 5) TABLET PO PRN ×4 (02:20→20:41)
[2020-08-07] MEDS: NITROFURANTOIN 100 MG (MACROBID) CAPSULE PO SCH (06:29)
[2020-08-07] MEDS: MULTIVIT W/MINERALS TAB (THERAGRAN M) PO SCH (06:29)
[2020-08-07 07:27] VITALS: BP 120/75
[2020-08-07] MEDS: OXYBUTYNIN (DITROPAN) 5 MG TAB PO SCH ×2 (09:06→20:40)
[2020-08-07] MEDS: LACTOBACILLUS ACIDOPHILUS (PROBIOTIC) CAPSULE PO SCH (09:06)
[2020-08-07] MEDS: MAGNESIUM OXIDE (MAG-OX)400 MG TAB PO SCH ×2 (09:06→20:40)
[2020-08-07] MEDS: LORATADINE (CLARITIN) 10 MG TAB PO SCH (09:07)
[2020-08-07] MEDS: ASPIRIN E.C. 81 MG (ECOTRIN) TAB PO SCH (09:07)
[2020-08-07] MEDS: PANTOPRAZOLE 40 MG (PROTONIX) TAB PO SCH (09:07)
[2020-08-07] MEDS: polyethylene glycoL POWDER 17 GM (MIRALAX) PACK PO SCH ×2 (09:10→19:19)
[2020-08-07] MEDS: SENNA W/DOCUSATE (SENOKOT S) TABLET PO SCH ×2 (09:10→19:20)
[2020-08-07] MEDS: DOCUSATE SODIUM 100 MG (COLACE) CAP PO SCH ×2 (09:10→19:19)
[2020-08-07] MEDS: ATENOLOL 25 MG (TENORMIN) TAB PO SCH (09:12)
[2020-08-07] MEDS: BALSALAZIDE 750 MG PO SCH ×3 (09:14→20:39)
--- NOTE | 2020-08-07 09:21 | PM&R Progress Note ---
Subjective HPI/CC On Admission Date Seen by Provider: August 07, 2020 Time Seen by Provider: 09:30 Subjective/Events-last exam 08/07/20: Feels much better since IVF given yesterday HR still 50's holding Atenolol O2 maintained Mammogram will need to be completed at day of DC Labs due tomorrow 08/06/20: Patient doing well Diarrhea all night after suppository and laxatives were given since post op Dizziness and mild hypotension noted so holding HCTZ and Atenolol RN called me back later and told me her BP was 92/50 and she felt weak so ordered NS 500cc IV bolus then 100cc/hr Labs reviewed today no evidence of sepsis No fever no elevated wbc Review of Systems General: Fatigue, Malaise Gastrointestinal: Diarrhea Neurological: Weakness Objective Exam Vital Signs Vital Signs Date Time Temp Pulse Resp B/P (MAP) Pulse Ox O2 Delivery O2 Flow Rate FiO2 08/07/20 21:11 37.0 08/07/20 21:00 Nasal Cannula 2.00 08/07/20 19:58 70 20 99/51 (67) 96 Capillary Refill : General Appearance: No Apparent Distress, WD/WN, Chronically ill, Obese HEENT: PERRL/EOMI, Normal ENT Inspection, Pharynx Normal Neck: Full Range of Motion, Normal Inspection, Non Tender, Supple, Carotid Bruit Respiratory: Chest Non Tender, Lungs Clear, Normal Breath Sounds, No Accessory Muscle Use, No Respiratory Distress Cardiovascular: Regular Rate, Rhythm, No Edema, No Gallop, No JVD, No Murmur, Normal Peripheral Pulses Gastrointestinal: Normal Bowel Sounds, No Organomegaly, No Pulsatile Mass, Non Tender, Soft Back: Normal Inspection, No CVA Tenderness, No Vertebral Tenderness Extremity: Normal Capillary Refill, Normal Inspection, Normal Range of Motion, Non Tender, No Calf Tenderness, No Pedal Edema Neurologic/Psychiatric: Alert, Oriented x3, No Motor/Sensory Deficits, Normal Mood/Affect, 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 FIM Transfers Therapy Code Descriptions/Definitions Functional [place] Measure: 0=Not Assessed/NA 4=Minimal Assistance 1=Total Assistance 5=Supervision or Setup 2=Maximal Assistance 6=Modified [place] 3=Moderate Assistance 7=Complete IndependenceSCALE: Activities may be completed with or without assistive devices. 4-Dstywlscpn-medyrkh completes the activity by him/herself with no assistance from a helper. 5-Set-up or Clean-up Assistance-helper sets up or cleans up; patient completes activity. [place] assists only prior to or following the activity. 4-Supervision or Touching Assistance-helper provides verbal cues and/or touching/steadying and/or contact guard assistance as patient completes activity. Assistance may be provided throughout the activity or intermittently. 3-Partial/Moderate Assistance-helper does LESS THAN HALF the effort. [place] lifts, holds or supports trunk or limbs, but provides less than half the effort. 2-Substantial/Maximal Assistance-helper does MORE THAN HALF the effort. [place] lifts or holds trunk or limbs and provides more than half the effort. 0-Tukohqyni-tknhaa does ALL the effort. Patient does none of the effort to complete the activity. Or, the assistance of 2 or more helpers is required for the patient to complete the activity. If activity was not attempted, code reason: 7-Patient Refused. 9-Not Applicable-not attempted and the patient did not perform the activity before the current illness, exacerbation or injury. 10-Not Attempted due to Environmental Limitations-(lack of equipment, weather restraints, etc.). 88-Not Attempted due to Medical Conditions or Safety Concerns. Roll Left to Right (QC): 6 Sit to Lying (QC): 6 Sit to Stand (QC): 4 Chair/Fmw-ec-Sjsnq Xfer(QC): 4 (CGA) Car Transfer (QC): 4 (CGA) Gait Training Does the Patient Walk?: Yes Distance: 300' Walk 10 feet (QC): 4 Walk 50 ft with 2 Turns(QC): 4 Walk 150 ft (QC): 4 Walking 10ft/uneven surface-QC: 4 Gait Persons Needed: 1 Gait Assistive Device: FWW Wheelchair Training Does the Pt Use a Wheelchair?: No Wheel 50 ft with 2 turns (QC): 9 Wheel 150 ft (QC): 9 Stair Training #of Steps: 1 1 Step (curb) (QC): 4 4 Steps (QC): 88 12 Steps (QC): 88 Balance Picking up an Object (QC): 4 ADL-Treatment Eating (QC): 6 Oral Hygiene (QC): 6 Shower/Bathe Self (QC): 4 (SBA, pt able to pick items off floor in stance when dropped. COmpletes LB in sit, UB/ hair in stance with good ability.) Upper Body Dressing (QC): 5 (s/u) Lower Body Dressing (QC): 3 (min A threading BLE due to increased fatigue post showering.) On/Off Footwear (QC): 2 (max A donning post shower due to fatigue.) Toileting Hygiene (QC): 4 (SBA in stance ) Assessment/Plan Assessment and Plan Assess & Plan/Chief Complaint Assessment: Bilateral knee replacements POD # 2 DEYA Nocturnal hypoxia HTN GERD UC Post op constipation now resolved Hypotension with weakness prompting IVF 08/06/20 Plan: Monitor knee pain IRF protocol BM regimen 08/06/20: Monitor dizziness Give IVF Hold BP meds 08/07/20: Monitor BP Increase PO fluids (1) Status post bilateral knee replacements (2) Ulcerative colitis (3) DEYA (obstructive sleep apnea) (4) Nocturnal hypoxia (5) Hypertension (6) GERD (gastroesophageal reflux disease) SHERRI CARBAJAL DO August 07, 2020 09:21
[2020-08-07 19:58] VITALS: BP 99/51
[2020-08-07] MEDS: FLUTICASONE NASAL SPRAY (FLONASE) 16 GM BTL NS SCH (20:39)
[2020-08-07] MEDS: TEMAZEPAM 15 MG (RESTORIL) CAP PO SCH (20:40)
[2020-08-07] MEDS: PARoxetine 20 MG (PAXIL) TAB PO SCH (20:40)
[2020-08-07] MEDS: RAMELTEON 8 MG (ROZEREM) TAB PO SCH (20:40)
[2020-08-07] MEDS: ALPRAZolam 0.25 MG (XANAX) TAB PO PRN (23:15)
--- NOTE | 2020-08-08 05:23 | PM&R Progress Note ---
Subjective HPI/CC On Admission Date Seen by Provider: August 08, 2020 Time Seen by Provider: 08:30 Subjective/Events-last exam 08/08/20: Pt doing pretty well Hgb 10.9 Right knee really hurts so I will give her a one time dose of 10 mg of Oxycodone since her last dose was at at 0630 hours Able to walk with therapy 08/07/20: Feels much better since IVF given yesterday HR still 50's holding Atenolol O2 maintained Mammogram will need to be completed at day of DC Labs due tomorrow 08/06/20: Patient doing well Diarrhea all night after suppository and laxatives were given since post op Dizziness and mild hypotension noted so holding HCTZ and Atenolol RN called me back later and told me her BP was 92/50 and she felt weak so ordered NS 500cc IV bolus then 100cc/hr Labs reviewed today no evidence of sepsis No fever no elevated wbc Review of Systems General: Fatigue, Malaise Musculoskeletal: leg pain Neurological: Weakness, Incoordination Objective Exam Vital Signs Vital Signs Date Time Temp Pulse Resp B/P (MAP) Pulse Ox O2 Delivery O2 Flow Rate FiO2 08/08/20 20:36 Nasal Cannula 2.00 08/08/20 20:00 36.4 73 20 134/63 (86) 98 Capillary Refill : General Appearance: No Apparent Distress, WD/WN, Chronically ill, Obese HEENT: PERRL/EOMI, Normal ENT Inspection, Pharynx Normal Neck: Full Range of Motion, Normal Inspection, Non Tender, Supple, Carotid Bruit Respiratory: Chest Non Tender, Lungs Clear, Normal Breath Sounds, No Accessory Muscle Use, No Respiratory Distress Cardiovascular: Regular Rate, Rhythm, No Edema, No Gallop, No JVD, No Murmur, Normal Peripheral Pulses Gastrointestinal: Normal Bowel Sounds, No Organomegaly, No Pulsatile Mass, Non Tender, Soft Back: Normal Inspection, No CVA Tenderness, No Vertebral Tenderness Extremity: Normal Capillary Refill, Normal Inspection, Normal Range of Motion, Non Tender, No Calf Tenderness, No Pedal Edema Neurologic/Psychiatric: Alert, Oriented x3, No Motor/Sensory Deficits, Normal Mood/Affect, confidential investigator II-XII Norm as Tested, Abnormal Gait, Motor Weakness (lower extremities) Skin: Normal Color, Warm/Dry Lymphatic: No Adenopathy Results/Procedures Lab Laboratory Tests 08/08/20 05:35 Patient resulted labs reviewed. FIM Transfers Therapy Code Descriptions/Definitions Functional [place] Measure: 0=Not Assessed/NA 4=Minimal Assistance 1=Total Assistance 5=Supervision or Setup 2=Maximal Assistance 6=Modified [place] 3=Moderate Assistance 7=Complete IndependenceSCALE: Activities may be completed with or without assistive devices. 2-Tlyfuxooez-dllowlv completes the activity by him/herself with no assistance from a helper. 5-Set-up or Clean-up Assistance-helper sets up or cleans up; patient completes activity. [place] assists only prior to or following the activity. 4-Supervision or Touching Assistance-helper provides verbal cues and/or touching/steadying and/or contact guard assistance as patient completes activity. Assistance may be provided throughout the activity or intermittently. 3-Partial/Moderate Assistance-helper does LESS THAN HALF the effort. [place] lifts, holds or supports trunk or limbs, but provides less than half the effort. 2-Substantial/Maximal Assistance-helper does MORE THAN HALF the effort. [place] lifts or holds trunk or limbs and provides more than half the effort. 2-Bxkhizxnr-pfkpxe does ALL the effort. Patient does none of the effort to complete the activity. Or, the assistance of 2 or more helpers is required for the patient to complete the activity. If activity was not attempted, code reason: 7-Patient Refused. 9-Not Applicable-not attempted and the patient did not perform the activity before the current illness, exacerbation or injury. 10-Not Attempted due to Environmental Limitations-(lack of equipment, weather restraints, etc.). 88-Not Attempted due to Medical Conditions or Safety Concerns. Roll Left to Right (QC): 6 Sit to Lying (QC): 6 Sit to Stand (QC): 4 Chair/Bvs-dr-Qzdnj Xfer(QC): 4 (CGA) Car Transfer (QC): 4 (CGA) Gait Training Does the Patient Walk?: Yes Distance: 300' Walk 10 feet (QC): 4 Walk 50 ft with 2 Turns(QC): 4 Walk 150 ft (QC): 4 Walking 10ft/uneven surface-QC: 4 Gait Persons Needed: 1 Gait Assistive Device: FWW Wheelchair Training Does the Pt Use a Wheelchair?: No Wheel 50 ft with 2 turns (QC): 9 Wheel 150 ft (QC): 9 Stair Training #of Steps: 1 1 Step (curb) (QC): 4 4 Steps (QC): 88 12 Steps (QC): 88 Balance Picking up an Object (QC): 4 ADL-Treatment Eating (QC): 6 Oral Hygiene (QC): 6 Shower/Bathe Self (QC): 4 (SBA, pt able to pick items off floor in stance when dropped. COmpletes LB in sit, UB/ hair in stance with good ability.) Upper Body Dressing (QC): 5 (s/u) Lower Body Dressing (QC): 3 (min A threading BLE due to increased fatigue post showering.) On/Off Footwear (QC): 2 (max A donning post shower due to fatigue.) Toileting Hygiene (QC): 4 (SBA in stance ) Assessment/Plan Assessment and Plan Assess & Plan/Chief Complaint Assessment: Bilateral knee replacements POD # 2 DEYA Nocturnal hypoxia HTN GERD UC Post op constipation now resolved Hypotension with weakness prompting IVF 08/06/20 Plan: Monitor knee pain IRF protocol BM regimen 08/06/20: Monitor dizziness Give IVF Hold BP meds 08/07/20: Monitor BP Increase PO fluids 08/08/20: Monitor pain Monitor BP (1) Status post bilateral knee replacements (2) Ulcerative colitis (3) DEYA (obstructive sleep apnea) (4) Nocturnal hypoxia (5) Hypertension (6) GERD (gastroesophageal reflux disease) SHERRI CARBAJAL DO August 08, 2020 05:23
[2020-08-08 05:49] LABS: BASOPHILS % (AUTO) 1 % (0-10); EOSINOPHILS # (AUTO) 0.2 10^3/uL (0.0-0.3); EOSINOPHILS % (AUTO) 4 % (0-10); HEMATOCRIT 34 % (35-52); HEMOGLOBIN 10.9 g/dL (11.5-16.0); LYMPHOCYTES % (AUTO) 33 % (12-44); MEAN CORPUSCULAR HEMOGLOBIN 32 pg (25-34); MEAN CORPUSCULAR HGB CONC 32 g/dL (32-36); MEAN CORPUSCULAR VOLUME 99 fL (80-99); MEAN PLATELET VOLUME 9.4 fL (9.0-12.2); MONOCYTES # (AUTO) 0.4 10^3/uL (0.0-1.0); MONOCYTES % (AUTO) 7 % (0-12); NEUTROPHILS # (AUTO) 3.3 10^3/uL (1.8-7.8); NEUTROPHILS % (AUTO) 55 % (42-75); PLATELET COUNT 177 10^3/uL (130-400)
[2020-08-08 06:09] LABS: ALANINE AMINOTRANSFERASE 26 U/L (0-55); ALBUMIN 3.2 GM/DL (3.2-4.5); ALKALINE PHOSPHATASE 60 U/L (40-136); BILIRUBIN,TOTAL 0.4 MG/DL (0.1-1.0); BUN/CREATININE RATIO 17; CALCIUM 8.5 MG/DL (8.5-10.1); CARBON DIOXIDE 30 MMOL/L (21-32); CHLORIDE 103 MMOL/L (98-107); CREATININE SERUM 0.88 MG/DL (0.60-1.30); GFR ESTIMATED > 60; GLUCOSE 107 MG/DL (70-105); POTASSIUM 4.2 MMOL/L (3.6-5.0); SODIUM 142 MMOL/L (135-145)
[2020-08-08] MEDS: oxyCODONE/APAP 5/325MG (PERCOCET 5) TABLET PO PRN ×3 (06:34→20:30)
[2020-08-08] MEDS: MULTIVIT W/MINERALS TAB (THERAGRAN M) PO SCH (06:34)
[2020-08-08] MEDS: NITROFURANTOIN 100 MG (MACROBID) CAPSULE PO SCH (06:34)
--- NOTE | 2020-08-08 07:46 | ST Cognitive Linguistic Eval ---
Speech Evaluation-General Medical Diagnosis bilateral total knee revisions Onset Date: Aug 03, 2020 Therapy Diagnosis Therapy Diagnosis: Cognitive Communication Referral Referring Physician: Dr. Ayers Medical History Reviewed History: Yes Social History Current Living Status: Spouse Speech PLF-Current Status Prior Level of Function Patient lives with her where she was independent for her daily needs. Subjective Patient was resting in her bed c/o pain, however she was able to complete the cognitive assessment. Language Eval: Auditory Comprehends Simple Yes/No Ques: Functional Indent/Objects Multiple [place]: Functional Ident/Pics in Multiple [place]: Functional Follows 1-Step Commands: Functional Follows Complex Directions: Functional Follows General Conversations: Functional Language Eval: Verbal Language Completes Spontaneous Greeting: Functional Produces Auto, Serial Info: Functional Imitates Simple Words/Phrases: Functional Word Finding: Functional Requests Basic Needs: Functional States Basic Personal Info: Functional Expresses Complex Ideas: Functional Objective Cognitive Domain Attention: WNL Memory: Moderate Problem Solving: Functional Executive Functions: WNL Visuospatial Skills: WNL Composite Severity Rating: WNL Clock Drawing Severity Rating: WNL Objective Formal/Standardized Tests [facility] Results 29/30, within normal limits Oral Motor/Speech Production Within Normal Limits Impression Patient is a pleasant 74 y/o female who was admitted to ARU s/p bilateral knee surgery. Patient was given the UMS at bedside with a score of 29/30 obtained. This score is within normal range of function. At this time further ST services are not needed. Speech Patient Assess Expression of Ideas/Wants: Expression (4) Understanding Verbal Content: Understands (4) Brief Interview-Mental Status: Yes Repetition of Three Words: Three (3) Temporal Orientation: Year: Correct (3) Temporal Orientation: Month: Accurate within 5 days(2) Temporal Orientation: Day: Correct (1) Recall : Wear to say "Sock": Yes, no cue required (2) Recall : Color: Yes, no cue required (2) Recall : Bed: Yes, no cue required (2) Memory/Recall Ability: Current season, That he or she is in a hsp/hsp unit Speech-Plan Patient/Family Goals Patient/Family Goals: Patient plans to return to her home where she lives with her upon discharge. Treatment Plan Speech Therapy Treatment Plan: Discontinue ST Treatment Duration: August 08, 2020 Frequency: 1 time per week Estimated Hrs Per Day: .25 hour per day Rehab Potential: Fair Barriers to Learning: None identified Pt/Family Agrees to Plan: Yes Safety Risks/Education Teaching Recipient: Patient Teaching Methods: Discussion Response to Teaching: Verbalize Understanding Education Topics Provided: Safety within her room, communication of wants/needs Time Speech Therapy Time In: 07:15 Speech Therapy Time Out: 07:30 Total Billed Time: 15 Billed Treatment Time 1, SPSNDCOMP JOSEFINA Jo August 08, 2020 07:46
[2020-08-08 08:11] VITALS: BP 109/55
[2020-08-08] MEDS: MAGNESIUM OXIDE (MAG-OX)400 MG TAB PO SCH ×2 (08:53→20:27)
[2020-08-08] MEDS: PANTOPRAZOLE 40 MG (PROTONIX) TAB PO SCH (08:53)
[2020-08-08] MEDS: LACTOBACILLUS ACIDOPHILUS (PROBIOTIC) CAPSULE PO SCH (08:53)
[2020-08-08] MEDS: LORATADINE (CLARITIN) 10 MG TAB PO SCH (08:53)
[2020-08-08] MEDS: OXYBUTYNIN (DITROPAN) 5 MG TAB PO SCH ×2 (08:53→20:27)
[2020-08-08] MEDS: ASPIRIN E.C. 81 MG (ECOTRIN) TAB PO SCH (08:53)
[2020-08-08] MEDS: BALSALAZIDE 750 MG PO SCH ×3 (08:53→20:27)
[2020-08-08] MEDS: DOCUSATE SODIUM 100 MG (COLACE) CAP PO SCH ×2 (08:54→20:01)
[2020-08-08] MEDS: SENNA W/DOCUSATE (SENOKOT S) TABLET PO SCH ×2 (08:54→20:01)
[2020-08-08] MEDS: polyethylene glycoL POWDER 17 GM (MIRALAX) PACK PO SCH ×2 (08:54→20:01)
[2020-08-08] MEDS: ATENOLOL 25 MG (TENORMIN) TAB PO SCH (08:55)
--- NOTE | 2020-08-08 10:30 | Physical Therapy Daily Note ---
PT Daily Note-Current Subjective Patient supine pre tx, consented to therapy. Reports intense pain, 7/10 in bilateral knees. Appearance Patient supine pre tx, with ice donned, call button within reach, tray table nearby, and all needs met. Mental Status Patient Orientation: Person, Place, Time, Normal For Age Attachments: Oxygen, Polar Pack Transfers SCALE: Activities may be completed with or without assistive devices. 2-Pewwkbtheh-cyixtfl completes the activity by him/herself with no assistance from a helper. 5-Set-up or Clean-up Assistance-helper sets up or cleans up; patient completes activity. [place] assists only prior to or following the activity. 4-Supervision or Touching Assistance-helper provides verbal cues and/or touching/steadying and/or contact guard assistance as patient completes activity. Assistance may be provided throughout the activity or intermittently. 3-Partial/Moderate Assistance-helper does LESS THAN HALF the effort. [place] lifts, holds or supports trunk or limbs, but provides less than half the effort. 2-Substantial/Maximal Assistance-helper does MORE THAN HALF the effort. [place] l ifts or holds trunk or limbs and provides more than half the effort. 7-Gcixajqga-thfawu does ALL the effort. Patient does none of the effort to complete the activity. Or, the assistance of 2 or more helpers is required for the patient to complete the activity. If activity was not attempted, code reason: 7-Patient Refused. 9-Not Applicable-not attempted and the patient did not perform the activity before the current illness, exacerbation or injury. 10-Not Attempted due to Environmental Limitations-(lack of equipment, weather restraints, etc.). 88-Not Attempted due to Medical Conditions or Safety Concerns. Roll Left & Right (QC): 6 Sit to Lying (QC): 6 Lying to Sitting/Side of Bed(Q: 6 Sit to Stand (QC): 4 (CGA) Weight Bearing Weight Bearing/Tolerated Weight Bearing/Tolerated Gait Training Distance: 150', 120' Walk 10 feet (QC): 4 Walk 50 ft with 2 Turns(QC): 4 Walk 150 ft (QC): 4 Gait Persons Needed: 1 Gait Assistive Device: FWW Patient is steady with gait, but slow. Occasionally winces from pain through k nees. Patient is motivated to continue through pain. Exercises Supine Ex: Ankle pumps, Quad Set, Glut sets, Heel Slides, Straight leg raise Supine Reps: 15 Seated Therapy Exercises: Hip flexion, Hip abd/add (RTB, mini ball) Seated Reps: 15 Treatments LE strengthening, gait training, transfers Assessment Current Status: Fair Progress Patient is motivated to participate in therapy, despite intense pain complaints. PT Short Term Goals Short Term Goals Time Frame: August 12, 2020 Roll Left & Right: 6 Sit to lyin Lying to sitting on side of be: 6 Sit to stand: 5 Chair/wjt-nq-scppo transfer: 5 Walk 10 feet: 5 Walk 50 feet with two turns: 5 Walk 150 feet: 5 PT Hanging Flags Decorator Goals Hanging Flags Decorator Goals PT Hanging Flags Decorator Goals Time Frame: August 26, 2020 Roll Left & Right (QC): 6 Sit to Lying (QC): 6 Lying-Sitting on Side/Bed(QC): 6 Sit to Stand (QC): 6 Chair/Zcn-je-Stmax Xfer(QC): 6 Toilet Transfer (QC): 6 Car Transfer (QC): 6 Does the Patient Walk: Yes Walk 10 feet (QC): 6 Walk 50ft with 2 Turns (QC): 6 Walk 150 ft (QC): 6 Walking 10ft on Uneven Surface: 6 1 Step (curb) (QC): 6 4 Steps (QC): 6 12 Steps (QC): 88 Picking up an Object (QC): 6 Wheel 50 feet with 2 turns (QC: 9 Wheel 150 feet: 9 PT Plan Problem List Problem List: Activity Tolerance, Functional Strength, Safety, Balance, Gait, Transfer, Bed Mobility, ROM Treatment/Plan Treatment Plan: Continue Plan of Care Treatment Plan: Bed Mobility, Education, Functional Activity Ian, Functional Strength, Group Therapy, Gait, Safety, Therapeutic Exercise, Transfers Treatment Duration: August 26, 2020 Frequency: At least 5 of 7 days/Wk (IRF) Estimated Hrs Per Day: 1.5 hours per day Patient and/or Family Agrees t: Yes Safety Risks/Education Patient Education: Gait Training, Transfer Techniques, Correct Positioning, Safety Issues Teaching Recipient: Patient Teaching Methods: Demonstration, Discussion Response to Teaching: Verbalize Understanding, Return Demonstration Time/GCodes Time In: 0945 Time Out: 1030 Total Billed Treatment Time: 45 Total Billed Treatment 1 visit: EX x2: 30' FA: 15' RADHA WALLACE PT August 08, 2020 10:30
--- NOTE | 2020-08-08 14:02 | Occupational Ther Daily Note ---
OT Current Status-Daily Note Subjective Pt alert, lying in bed. Pt agrees to therapy. No c/o pain at this time. Mental Status/Objective Patient Orientation: Person, Place, Time, Situation ADL-Treatment 1st session ([id number])Pt declines shower, agrees to sponge bath and changing clothing. Supine to EOB, independent. Pt ambulated to bathroom using FWW, completed toilet transfer and toileting independent. Pt sat at sink to complete sponge bath, independently. After set up, pt complete dressing by self. Standing at sink, pt able to complete oral care independently. Therapy Code Descriptions/Definitions Functional [place] Measure: 0=Not Assessed/NA 4=Minimal Assistance 1=Total Assistance 5=Supervision or Setup 2=Maximal Assistance 6=Modified [place] 3=Moderate Assistance 7=Complete IndependenceSCALE: Activities may be completed with or without assistive devices. 5-Wjgrkavfzt-osytjbo completes the activity by him/herself with no assistance from a helper. 5-Set-up or Clean-up Assistance-helper sets up or cleans up; patient completes activity. [place] assists only prior to or following the activity. 4-Supervision or Touching Assistance-helper provides verbal cues and/or touching/steadying and/or contact guard assistance as patient completes activity. Assistance may be provided throughout the activity or intermittently. 3-Partial/Moderate Assistance-helper does LESS THAN HALF the effort. [place] lifts, holds or supports trunk or limbs, but provides less than half the effort. 2-Substantial/Maximal Assistance-helper does MORE THAN HALF the effort. [place] lifts or holds trunk or limbs and provides more than half the effort. 2-Rhuywushj-hawlmv does ALL the effort. Patient does none of the effort to complete the activity. Or, the assistance of 2 or more helpers is required for the patient to complete the activity. If activity was not attempted, code reason: 7-Patient Refused. 9-Not Applicable-not attempted and the patient did not perform the activity before the current illness, exacerbation or injury. 10-Not Attempted due to Environmental Limitations-(lack of equipment, weather restraints, etc.). 88-Not Attempted due to Medical Conditions or Safety Concerns. Oral Hygiene (QC): 6 Upper Body Dressing (QC): 5 Lower Body Dressing (QC): 5 Toileting Hygiene (QC): 6 Toilet Transfer (QC): 6 Other Treatment 1st session([id number]) Pt ambulated to therapy gym to complete arm bike for 10 min at 15 welch resistance to increase strength and activity tolerance for daily functional tasks. Pt then ambulated back to room, EOB to supine independently after placing PolarPak independently. After session, pt lying in bed with call light/phone in reach. All needs met in room. 2nd session([id number])Pt lying in bed finishing up lunch. Pt completed medium resistance theraband exercises, 1 set 10 reps. Horizontal shldr abd/add, shldr abd/add, shldr int/ext rotation, bicep flex and tricep ext to increase B UE strength for daily functional tasks. Pt fatigued quickly. Discussed pt's home environment and if pt had any issues that concerned her. Pt described home environment and was able to state safe transfers and mobility throughout home. After therapy, pt lying in home with call light/phone in reach. All needs met in room. OT Short Term Goals Short Term Goals Shower/bathe self: 5 Upper body dressin Lower body dressin Putting on/taking off footwear: 3 OT [place] Goals Shelter Goals Time Frame: August 19, 2020 Eating (QC): 6 Oral Hygiene (QC): 6 Toileting Hygiene (QC): 6 Shower/Bathe Self (QC): 6 Upper Body Dressing (QC): 6 Lower Body Dressing (QC): 6 On/Off Footwear (QC): 6 Additional Goals: 1-Demonstrate ADL Tasks, 2-Verbalize Understanding, 3- ImproveStrength/Ian 1=Demonstrate adherence to instructed precautions during ADL tasks. 2=Patient will verbalize/demonstrate understanding of assistive devices/modifications for ADL. 3=Patient will improve strength/tolerance for activity to enable patient to perform ADL's. OT Education/Plan Problem List/Assessment Assessment: Decreased Activ Tolerance, Decreased UE Strength, Impaired Self- Care Skills Discharge Recommendations Plan/Recommendations: Continue POC Treatment Plan/Plan of Care Patient would benefit from OT for education, treatment and training to promote independence in ADL's, mobility, safety and/or upper extremity function for ADL's. Plan of Care: ADL Retraining, Caregiver Training, Functional Mobility, Group Exercise/Act as Ind, UE Funct Exercise/Act Treatment Duration: August 19, 2020 Frequency: At least 5 of 7 days/Wk (IRF) Estimated Hrs Per Day: 1.5 hours per day Agreement: Yes Rehab Potential: Fair Time/GCodes Start Time: 11:00 (1300) Stop Time: 12:00 (1330) Total Time Billed (hr/min): 90 Billed Treatment Time 1 visit([id number])-ADL 3 (50 min) EX 1 (10 min), 1 visit([id number])-EX 1 (15 min) FA 1 (15 min) SHEKHAR MOORE August 08, 2020 14:02
--- NOTE | 2020-08-08 14:21 | Physical Therapy Daily Note ---
PT Daily Note-Current Subjective Patient reported moderate, unrated pain in bilateral LE's. Patient consented to therapy. Appearance Patient supine in bed post tx, with call button within reach and tray table nearby. All needs met. Mental Status Patient Orientation: Person, Place, Time Attachments: Oxygen, Polar Pack Transfers SCALE: Activities may be completed with or without assistive devices. 7-Ifcpvpjhiz-qgodonx completes the activity by him/herself with no assistance from a helper. 5-Set-up or Clean-up Assistance-helper sets up or cleans up; patient completes activity. [place] assists only prior to or following the activity. 4-Supervision or Touching Assistance-helper provides verbal cues and/or touching/steadying and/or contact guard assistance as patient completes activity. Assistance may be provided throughout the activity or intermittently. 3-Partial/Moderate Assistance-helper does LESS THAN HALF the effort. [place] lifts, holds or supports trunk or limbs, but provides less than half the effort. 2-Substantial/Maximal Assistance-helper does MORE THAN HALF the effort. [place] lifts or holds trunk or limbs and provides more than half the effort. 1-Lldenjwls-wshfam does ALL the effort. Patient does none of the effort to complete the activity. Or, the assistance of 2 or more helpers is required for the patient to complete the activity. If activity was not attempted, code reason: 7-Patient Refused. 9-Not Applicable-not attempted and the patient did not perform the activity be fore the current illness, exacerbation or injury. 10-Not Attempted due to Environmental Limitations-(lack of equipment, weather restraints, etc.). 88-Not Attempted due to Medical Conditions or Safety Concerns. Roll Left & Right (QC): 6 Sit to Lying (QC): 6 Lying to Sitting/Side of Bed(Q: 6 Sit to Stand (QC): 4 SBA Weight Bearing Weight Bearing/Tolerated Weight Bearing/Tolerated Gait Training Does the Patient Walk?: Yes Distance: 120' x2 Gait Assistive Device: FWW Painful, slow gait, but steady with ambulation Exercises NuStep Minutes: 12 NuStep Workload: 3 Treatments LE strengthening, gait training, endurance Assessment Current Status: Fair Progress Patient does not self-limit activity secondary to pain, is motivated to participate in exercise PT Short Term Goals Short Term Goals Time Frame: August 12, 2020 Roll Left & Right: 6 Sit to lyin Lying to sitting on side of be: 6 Sit to stand: 5 Chair/goc-cz-gvskl transfer: 5 Walk 10 feet: 5 Walk 50 feet with two turns: 5 Walk 150 feet: 5 PT Log Roller Goals [place] Rol[place] Goals PT [facility] Goals Time Frame: August 26, 2020 Roll Left & Right (QC): 6 Sit to Lying (QC): 6 Lying-Sitting on Side/Bed(QC): 6 Sit to Stand (QC): 6 Chair/Jtp-fc-Zeynr Xfer(QC): 6 Toilet Transfer (QC): 6 Car Transfer (QC): 6 Does the Patient Walk: Yes Walk 10 feet (QC): 6 Walk 50ft with 2 Turns (QC): 6 Walk 150 ft (QC): 6 Walking 10ft on Uneven Surface: 6 1 Step (curb) (QC): 6 4 Steps (QC): 6 12 Steps (QC): 88 Picking up an Object (QC): 6 Wheel 50 feet with 2 turns (QC: 9 Wheel 150 feet: 9 PT Plan Problem List Problem List: Activity Tolerance, Functional Strength, Safety, Balance, Gait, Transfer, Bed Mobility, ROM Treatment/Plan Treatment Plan: Continue Plan of Care Treatment Plan: Bed Mobility, Education, Functional Activity Ian, Functional Strength, Group Therapy, Gait, Safety, Therapeutic Exercise, Transfers Treatment Duration: August 26, 2020 Frequency: At least 5 of 7 days/Wk (IRF) Estimated Hrs Per Day: 1.5 hours per day Patient and/or Family Agrees t: Yes Safety Risks/Education Patient Education: Gait Training, Transfer Techniques, Correct Positioning, Safety Issues Teaching Recipient: Patient Teaching Methods: Demonstration, Discussion Response to Teaching: Verbalize Understanding, Return Demonstration Time/GCodes Time In: 1400 Time Out: 1430 Total Billed Treatment Time: 30 Total Billed Treatment 1 visit: EX: 12' FA: 18' RADHA WALLACE PT August 08, 2020 14:21
[2020-08-08 20:00] VITALS: BP 134/63
[2020-08-08] MEDS: PARoxetine 20 MG (PAXIL) TAB PO SCH (20:26)
[2020-08-08] MEDS: TEMAZEPAM 15 MG (RESTORIL) CAP PO SCH (20:26)
[2020-08-08] MEDS: RAMELTEON 8 MG (ROZEREM) TAB PO SCH (20:26)
[2020-08-08] MEDS: FLUTICASONE NASAL SPRAY (FLONASE) 16 GM BTL NS SCH (20:28)
[2020-08-08] MEDS: ALPRAZolam 0.25 MG (XANAX) TAB PO PRN (23:45)
[2020-08-09] MEDS: oxyCODONE/APAP 5/325MG (PERCOCET 5) TABLET PO PRN ×4 (00:22→22:26)
[2020-08-09] MEDS: NITROFURANTOIN 100 MG (MACROBID) CAPSULE PO SCH (06:27)
[2020-08-09] MEDS: MULTIVIT W/MINERALS TAB (THERAGRAN M) PO SCH (06:27)
[2020-08-09 08:00] VITALS: BP 124/60
--- NOTE | 2020-08-09 08:08 | PM&R Progress Note ---
Subjective HPI/CC On Admission Date Seen by Provider: August 09, 2020 Time Seen by Provider: 08:20 Subjective/Events-last exam 08/09/20: Pt doing pretty well Pain is an issue Difficulty coping Bed alarm maintained Checked meds and labs 08/08/20: Pt doing pretty well Hgb 10.9 Right knee really hurts so I will give her a one time dose of 10 mg of Oxycodone since her last dose was at at 0630 hours Able to walk with therapy 08/07/20: Feels much better since IVF given yesterday HR still 50's holding Atenolol O2 maintained Mammogram will need to be completed at day of DC Labs due tomorrow 08/06/20: Patient doing well Diarrhea all night after suppository and laxatives were given since post op Dizziness and mild hypotension noted so holding HCTZ and Atenolol RN called me back later and told me her BP was 92/50 and she felt weak so ordered NS 500cc IV bolus then 100cc/hr Labs reviewed today no evidence of sepsis No fever no elevated wbc Review of Systems General: Fatigue, Malaise Neurological: Weakness Objective Exam Vital Signs Vital Signs Date Time Temp Pulse Resp B/P (MAP) Pulse Ox O2 Delivery O2 Flow Rate FiO2 08/09/20 20:15 Nasal Cannula 2.00 08/09/20 20:00 36.2 99 18 151/67 (95) 95 Capillary Refill : General Appearance: No Apparent Distress, WD/WN, Chronically ill, Obese HEENT: PERRL/EOMI, Normal ENT Inspection, Pharynx Normal Neck: Full Range of Motion, Normal Inspection, Non Tender, Supple, Carotid Bruit Respiratory: Chest Non Tender, Lungs Clear, Normal Breath Sounds, No Accessory Muscle Use, No Respiratory Distress Cardiovascular: Regular Rate, Rhythm, No Edema, No Gallop, No JVD, No Murmur, Normal Peripheral Pulses Gastrointestinal: Normal Bowel Sounds, No Organomegaly, No Pulsatile Mass, Non Tender, Soft Back: Normal Inspection, No CVA Tenderness, No Vertebral Tenderness Extremity: Normal Capillary Refill, Normal Inspection, Normal Range of Motion, Non Tender, No Calf Tenderness, No Pedal Edema Neurologic/Psychiatric: Alert, Oriented x3, No Motor/Sensory Deficits, Normal Mood/Affect, it professional II-XII Norm as Tested, Abnormal Gait, Motor Weakness (lower extremities) Skin: Normal Color, Warm/Dry Lymphatic: No Adenopathy Results/Procedures Lab Patient resulted labs reviewed. FIM Transfers Therapy Code Descriptions/Definitions Functional [place] Measure: 0=Not Assessed/NA 4=Minimal Assistance 1=Total Assistance 5=Supervision or Setup 2=Maximal Assistance 6=Modified [place] 3=Moderate Assistance 7=Complete IndependenceSCALE: Activities may be completed with or without assistive devices. 5-Gmcdhjbddo-btrnfah completes the activity by him/herself with no assistance from a helper. 5-Set-up or Clean-up Assistance-helper sets up or cleans up; patient completes activity. [place] assists only prior to or following the activity. 4-Supervision or Touching Assistance-helper provides verbal cues and/or touching/steadying and/or contact guard assistance as patient completes activity. Assistance may be provided throughout the activity or intermittently. 3-Partial/Moderate Assistance-helper does LESS THAN HALF the effort. [place] lifts, holds or supports trunk or limbs, but provides less than half the effort. 2-Substantial/Maximal Assistance-helper does MORE THAN HALF the effort. [place] lifts or holds trunk or limbs and provides more than half the effort. 1-Zjvjvyseh-mjvrny does ALL the effort. Patient does none of the effort to complete the activity. Or, the assistance of 2 or more helpers is required for the patient to complete the activity. If activity was not attempted, code reason: 7-Patient Refused. 9-Not Applicable-not attempted and the patient did not perform the activity before the current illness, exacerbation or injury. 10-Not Attempted due to Environmental Limitations-(lack of equipment, weather restraints, etc.). 88-Not Attempted due to Medical Conditions or Safety Concerns. Roll Left to Right (QC): 6 Sit to Lying (QC): 6 Sit to Stand (QC): 4 Chair/Olm-kc-Gydft Xfer(QC): 4 (CGA) Car Transfer (QC): 4 (CGA) Gait Training Does the Patient Walk?: Yes Distance: 120' x2 Walk 10 feet (QC): 4 Walk 50 ft with 2 Turns(QC): 4 Walk 150 ft (QC): 4 Walking 10ft/uneven surface-QC: 4 Gait Persons Needed: 1 Gait Assistive Device: FWW Wheelchair Training Does the Pt Use a Wheelchair?: No Wheel 50 ft with 2 turns (QC): 9 Wheel 150 ft (QC): 9 Stair Training #of Steps: 1 1 Step (curb) (QC): 4 4 Steps (QC): 88 12 Steps (QC): 88 Balance Picking up an Object (QC): 4 ADL-Treatment Eating (QC): 6 Oral Hygiene (QC): 6 Shower/Bathe Self (QC): 4 (SBA, pt able to pick items off floor in stance when dropped. COmpletes LB in sit, UB/ hair in stance with good ability.) Upper Body Dressing (QC): 5 Lower Body Dressing (QC): 5 On/Off Footwear (QC): 2 (max A donning post shower due to fatigue.) Toileting Hygiene (QC): 6 Toilet Transfer (QC): 6 Assessment/Plan Assessment and Plan Assess & Plan/Chief Complaint Assessment: Bilateral knee replacements POD # 2 DEYA Nocturnal hypoxia HTN GERD UC Post op constipation now resolved Hypotension with weakness prompting IVF 08/06/20 Plan: Monitor knee pain IRF protocol BM regimen 08/06/20: Monitor dizziness Give IVF Hold BP meds 08/07/20: Monitor BP Increase PO fluids 08/08/20: Monitor pain Monitor BP 08/09/20: Monitor pain Monitor BP (1) Status post bilateral knee replacements (2) Ulcerative colitis (3) DEYA (obstructive sleep apnea) (4) Nocturnal hypoxia (5) Hypertension (6) GERD (gastroesophageal reflux disease) SHERRI CARBAJAL DO August 09, 2020 08:08
--- NOTE | 2020-08-09 09:24 | Physical Therapy Daily Note ---
PT Daily Note-Current Subjective Patient supine in bed pre tx, with pain reports of 4/10 in bilateral knees. Patient consents to treatment, notes she would like to spend more time walking today. Mental Status Patient Orientation: Person, Place, Time, Normal For Age Attachments: Oxygen Transfers SCALE: Activities may be completed with or without assistive devices. 4-Lzexadfibf-rxuqkfw completes the activity by him/herself with no assistance from a helper. 5-Set-up or Clean-up Assistance-helper sets up or cleans up; patient completes activity. [place] assists only prior to or following the activity. 4-Supervision or Touching Assistance-helper provides verbal cues and/or touching/steadying and/or contact guard assistance as patient completes activity. Assistance may be provided throughout the activity or intermittently. 3-Partial/Moderate Assistance-helper does LESS THAN HALF the effort. [place] lifts, holds or supports trunk or limbs, but provides less than half the effort. 2-Substantial/Maximal Assistance-helper does MORE THAN HALF the effort. [place] lifts or holds trunk or limbs and provides more than half the effort. 6-Fkagpljas-enaexw does ALL the effort. Patient does none of the effort to complete the activity. Or, the assistance of 2 or more helpers is required for the patient to complete the activity. If activity was not attempted, code reason: 7-Patient Refused. 9-Not Applicable-not attempted and the patient did not perform the activity before the current illness, exacerbation or injury. 10-Not Attempted due to Environmental Limitations-(lack of equipment, weather restraints, etc.). 88-Not Attempted due to Medical Conditions or Safety Concerns. Roll Left & Right (QC): 6 Lying to Sitting/Side of Bed(Q: 6 Sit to Stand (QC): 4 (SBA) Chair/Xxr-ny-Hxmay Xfer(QC): 4 (SBA) Patient is slow and steady with transfers, SBA Weight Bearing Weight Bearing/Tolerated Weight Bearing/Tolerated Gait Training Does the Patient Walk?: Yes Distance: 600', 120' Walk 10 feet (QC): 4 Walk 50 ft with 2 Turns(QC): 4 Walk 150 ft (QC): 4 Gait Assistive Device: FWW CGA to SBA with gait. Patient looks very tired this am, notes she did not sleep well. CGA to ensure safety with gait, but overall gait cylce is steady, steps are short in length. During first 600', patient takes occasional standing breaks, but denies a seated rest break. Exercises NuStep Minutes: 8 NuStep Workload: 3 Treatments Gait training, transfers, LE strengthening, ROM, Assessment Current Status: Fair Progress Patient is motivated to participate in therapy, but began to experience some lightheadedness while on the NuStep and stated "she didn't feel like herself." Had difficulty keeping eyes open. Measured patient BP to be 109/55, and 02 was 98%. Patient consented to completing therapy in her room. During walk back patient required rest break, complained of continued lightheadedness. Patient ambulated slowly to bed, and demonstrated decreased steadiness with gait. Measured BP again to be 118/62 and 02 was 96%. Notified nurse of patient vitals and symptoms . PT Short Term Goals Short Term Goals Time Frame: August 12, 2020 Roll Left & Right: 6 Sit to lyin Lying to sitting on side of be: 6 Sit to stand: 5 Chair/erm-hv-kpond transfer: 5 Walk 10 feet: 5 Walk 50 feet with two turns: 5 Walk 150 feet: 5 PT Half-Way Goals Supervisor Residential Goals PT Half-Way Goals Time Frame: August 26, 2020 Roll Left & Right (QC): 6 Sit to Lying (QC): 6 Lying-Sitting on Side/Bed(QC): 6 Sit to Stand (QC): 6 Chair/Qmh-rp-Qailq Xfer(QC): 6 Toilet Transfer (QC): 6 Car Transfer (QC): 6 Does the Patient Walk: Yes Walk 10 feet (QC): 6 Walk 50ft with 2 Turns (QC): 6 Walk 150 ft (QC): 6 Walking 10ft on Uneven Surface: 6 1 Step (curb) (QC): 6 4 Steps (QC): 6 12 Steps (QC): 88 Picking up an Object (QC): 6 Wheel 50 feet with 2 turns (QC: 9 Wheel 150 feet: 9 PT Plan Problem List Problem List: Activity Tolerance, Functional Strength, Safety, Balance, Gait, Transfer, Bed Mobility, ROM Treatment/Plan Treatment Plan: Continue Plan of Care Treatment Plan: Bed Mobility, Education, Functional Activity Ian, Functional Strength, Group Therapy, Gait, Safety, Therapeutic Exercise, Transfers Treatment Duration: August 26, 2020 Frequency: At least 5 of 7 days/Wk (IRF) Estimated Hrs Per Day: 1.5 hours per day Patient and/or Family Agrees t: Yes Safety Risks/Education Patient Education: Gait Training, Transfer Techniques, Correct Positioning, Safety Issues Teaching Recipient: Patient Teaching Methods: Demonstration, Discussion Response to Teaching: Verbalize Understanding, Return Demonstration Time/GCodes Time In: 0900 Time Out: 1000 Total Billed Treatment Time: 60 Total Billed Treatment 1 visit: GT: 22' EX: 8' FA x2: 30' RADHA WALLACE PT August 09, 2020 09:24
[2020-08-09] MEDS: LACTOBACILLUS ACIDOPHILUS (PROBIOTIC) CAPSULE PO SCH (09:25)
[2020-08-09] MEDS: ASPIRIN E.C. 81 MG (ECOTRIN) TAB PO SCH (09:25)
[2020-08-09] MEDS: OXYBUTYNIN (DITROPAN) 5 MG TAB PO SCH ×2 (09:25→20:54)
[2020-08-09] MEDS: PANTOPRAZOLE 40 MG (PROTONIX) TAB PO SCH (09:25)
[2020-08-09] MEDS: MAGNESIUM OXIDE (MAG-OX)400 MG TAB PO SCH ×2 (09:25→20:54)
[2020-08-09] MEDS: LORATADINE (CLARITIN) 10 MG TAB PO SCH (09:25)
[2020-08-09] MEDS: polyethylene glycoL POWDER 17 GM (MIRALAX) PACK PO SCH (09:26)
[2020-08-09] MEDS: SENNA W/DOCUSATE (SENOKOT S) TABLET PO SCH (09:26)
[2020-08-09] MEDS: DOCUSATE SODIUM 100 MG (COLACE) CAP PO SCH (09:26)
[2020-08-09] MEDS: BALSALAZIDE 750 MG PO SCH ×3 (09:26→20:55)
[2020-08-09] MEDS: ATENOLOL 25 MG (TENORMIN) TAB PO SCH (09:27)
[2020-08-09 09:56] VITALS: BP 133/66
--- NOTE | 2020-08-09 13:57 | Occupational Ther Daily Note ---
OT Current Status-Daily Note Subjective Pt sleepy, lying in bed. Per nrsg pt has not been sleeping well at night. Nrsg reports that pt is okay to participate in therapy. Mental Status/Objective Patient Orientation: Person, Place, Time, Situation Attachments: Oxygen (2L) ADL-Treatment 1st session(2161-4526): Pt initially was tired and dizzy. Dietary brought chocolate pudding and pt was able to set up and use regular utensils to eat. Dizziness gone, pt able to participate in therapy. Pt agrees to shower. Pt completed shower with supervision for safety due to pt standing throughout most of shower using grabbars to stabilize self. After set up, pt completed dressing by self. Pt c/o fatigue, declined brushing teeth and only brushed hair standing at sink. Pt independent with bed mobility. After session, pt lying in bed with call light/phone in reach. All needs met in room. 2nd session([id number]): Pt independent with toilet transfer, toileting, washing hands and completing oral care standing at sink. Pt independent with bed mobility. Therapy Code Descriptions/Definitions Functional [place] Measure: 0=Not Assessed/NA 4=Minimal Assistance 1=Total Assistance 5=Supervision or Setup 2=Maximal Assistance 6=Modified [place] 3=Moderate Assistance 7=Complete IndependenceSCALE: Activities may be completed with or without assistive devices. 9-Yddjnqwiva-vvzhcck completes the activity by him/herself with no assistance from a helper. 5-Set-up or Clean-up Assistance-helper sets up or cleans up; patient completes activity. [place] assists only prior to or following the activity. 4-Supervision or Touching Assistance-helper provides verbal cues and/or touching/steadying and/or contact guard assistance as patient completes activity. Assistance may be provided throughout the activity or intermittently. 3-Partial/Moderate Assistance-helper does LESS THAN HALF the effort. [place] lifts, holds or supports trunk or limbs, but provides less than half the effort. 2-Substantial/Maximal Assistance-helper does MORE THAN HALF the effort. [place] lifts or holds trunk or limbs and provides more than half the effort. 5-Mbyselcna-elszck does ALL the effort. Patient does none of the effort to complete the activity. Or, the assistance of 2 or more helpers is required for the patient to complete the activity. If activity was not attempted, code reason: 7-Patient Refused. 9-Not Applicable-not attempted and the patient did not perform the activity before the current illness, exacerbation or injury. 10-Not Attempted due to Environmental Limitations-(lack of equipment, weather restraints, etc.). 88-Not Attempted due to Medical Conditions or Safety Concerns. Eating (QC): 6 Oral Hygiene (QC): 6 Shower/Bathe Self (QC): 4 (Supervision for safety) Upper Body Dressing (QC): 5 Lower Body Dressing (QC): 5 On/Off Footwear: 5 Toileting Hygiene (QC): 6 Toilet Transfer (QC): 6 Other Treatment Pt completed 4 B UE medium resistance theraband exercises to increase strength and activity tolerance for daily functional tasks. After session, pt lying in bed with call light/phone in reach. All needs met in room. OT Short Term Goals Short Term Goals Shower/bathe self: 5 Upper body dressin Lower body dressin Putting on/taking off footwear: 3 OT Medical Payment Poster Goals Medical Payment Poster Goals Time Frame: August 19, 2020 Eating (QC): 6 (met) Oral Hygiene (QC): 6 (met) Toileting Hygiene (QC): 6 (met) Shower/Bathe Self (QC): 6 Upper Body Dressing (QC): 6 Lower Body Dressing (QC): 6 On/Off Footwear (QC): 6 Additional Goals: 1-Demonstrate ADL Tasks, 2-Verbalize Understanding, 3-ImproveStrength/Ian 1=Demonstrate adherence to instructed precautions during ADL tasks. 2=Patient will verbalize/demonstrate understanding of assistive devices/modifications for ADL. 3=Patient will improve strength/tolerance for activity to enable patient to per form ADL's. OT Education/Plan Problem List/Assessment Assessment: Decreased Activ Tolerance, Decreased Safety Aware Discharge Recommendations Plan/Recommendations: Continue POC Treatment Plan/Plan of Care Patient would benefit from OT for education, treatment and training to promote independence in ADL's, mobility, safety and/or upper extremity function for ADL's. Plan of Care: ADL Retraining, Caregiver Training, Functional Mobility, Group Exercise/Act as Ind, UE Funct Exercise/Act Treatment Duration: August 19, 2020 Frequency: At least 5 of 7 days/Wk (IRF) Estimated Hrs Per Day: 1.5 hours per day Agreement: Yes Rehab Potential: Fair Time/GCodes Start Time: 11:00 (1315) Stop Time: 12:00 (1345) Total Time Billed (hr/min): 90 Billed Treatment Time 1 visit([id number])-ADL 4 (60 min), 1 visit([id number])-ADL 1 (20 min) EX 1 (10 min) SHEKHAR MOORE August 09, 2020 13:57
--- NOTE | 2020-08-09 14:47 | Physical Therapy Daily Note ---
PT Daily Note-Current Subjective Patient supine pre tx, complained of moderate unrated pain in bilateral knees. Agreed to therapy. Appearance Patient supine in bed, with call button within reach and tray table nearby, all needs met. Mental Status Patient Orientation: Person, Place, Time, Normal For Age Transfers SCALE: Activities may be completed with or without assistive devices. 1-Tzpnhbuiin-tihuzqd completes the activity by him/herself with no assistance from a helper. 5-Set-up or Clean-up Assistance-helper sets up or cleans up; patient completes activity. [place] assists only prior to or following the activity. 4-Supervision or Touching Assistance-helper provides verbal cues and/or touching/steadying and/or contact guard assistance as patient completes a ctivity. Assistance may be provided throughout the activity or intermittently. 3-Partial/Moderate Assistance-helper does LESS THAN HALF the effort. [place] lifts, holds or supports trunk or limbs, but provides less than half the effort. 2-Substantial/Maximal Assistance-helper does MORE THAN HALF the effort. [place] lifts or holds trunk or limbs and provides more than half the effort. 9-Opldjqvbo-ratinc does ALL the effort. Patient does none of the effort to complete the activity. Or, the assistance of 2 or more helpers is required for the patient to complete the activity. If activity was not attempted, code reason: 7-Patient Refused. 9-Not Applicable-not attempted and the patient did not perform the activity before the current illness, exacerbation or injury. 10-Not Attempted due to Environmental Limitations-(lack of equipment, weather restraints, etc.). 88-Not Attempted due to Medical Conditions or Safety Concerns. Weight Bearing Weight Bearing/Tolerated Weight Bearing/Tolerated Exercises Supine Ex: Ankle pumps, Quad Set, Glut sets, Heel Slides, Straight leg raise Supine Reps: 15 Patient performed heel slides slowly, secondary to pain. Treatments LE strengthening, ROM Assessment Current Status: Fair Progress Patient grimaced through therapeutic exercises, was slow with each exercise secondary to pain. Patient was determined and able to complete all reps. Patient reported she would go on an evening walk later in the day, once pain was more tolerable. PT Short Term Goals Short Term Goals Time Frame: August 12, 2020 Roll Left & Right: 6 Sit to lyin Lying to sitting on side of be: 6 Sit to stand: 5 Chair/qvp-dy-uguma transfer: 5 Walk 10 feet: 5 Walk 50 feet with two turns: 5 Walk 150 feet: 5 PT Halfway Goals Halfway Goals PT Halfway Goals Time Frame: August 26, 2020 Roll Left & Right (QC): 6 Sit to Lying (QC): 6 Lying-Sitting on Side/Bed(QC): 6 Sit to Stand (QC): 6 Chair/Gth-yp-Jakqn Xfer(QC): 6 Toilet Transfer (QC): 6 Car Transfer (QC): 6 Does the Patient Walk: Yes Walk 10 feet (QC): 6 Walk 50ft with 2 Turns (QC): 6 Walk 150 ft (QC): 6 Walking 10ft on Uneven Surface: 6 1 Step (curb) (QC): 6 4 Steps (QC): 6 12 Steps (QC): 88 Picking up an Object (QC): 6 Wheel 50 feet with 2 turns (QC: 9 Wheel 150 feet: 9 PT Plan Problem List Problem List: Activity Tolerance, Functional Strength, Safety, Balance, Gait, Transfer, Bed Mobility, ROM Treatment/Plan Treatment Plan: Continue Plan of Care Treatment Plan: Bed Mobility, Education, Functional Activity Ian, Functional Strength, Group Therapy, Gait, Safety, Therapeutic Exercise, Transfers Treatment Duration: August 26, 2020 Frequency: At least 5 of 7 days/Wk (IRF) Estimated Hrs Per Day: 1.5 hours per day Patient and/or Family Agrees t: Yes Safety Risks/Education Patient Education: Correct Positioning, Safety Issues Teaching Recipient: Patient Teaching Methods: Demonstration, Discussion Response to Teaching: Reinforcement Needed Time/GCodes Time In: 1400 Time Out: 1430 Total Billed Treatment Time: 30 Total Billed Treatment 1 visit: EX x2: 30' RADHA WALLACE PT August 09, 2020 14:47
[2020-08-09 20:00] VITALS: BP 151/67
[2020-08-09] MEDS: TEMAZEPAM 15 MG (RESTORIL) CAP PO SCH (20:54)
[2020-08-09] MEDS: FLUTICASONE NASAL SPRAY (FLONASE) 16 GM BTL NS SCH (20:54)
[2020-08-09] MEDS: RAMELTEON 8 MG (ROZEREM) TAB PO SCH (20:54)
[2020-08-09] MEDS: PARoxetine 20 MG (PAXIL) TAB PO SCH (20:54)
[2020-08-09] MEDS ORDERED: polyethylene glycoL POWDER 17 GM (MIRALAX) PACK PO PRN (21:00)
[2020-08-09] MEDS ORDERED: DOCUSATE SODIUM 100 MG (COLACE) CAP PO PRN (21:00)
[2020-08-09] MEDS ORDERED: SENNA W/DOCUSATE (SENOKOT S) TABLET PO PRN (21:00)
[2020-08-10] MEDS: ALPRAZolam 0.25 MG (XANAX) TAB PO PRN (00:49)
--- NOTE | 2020-08-10 06:11 | PM&R Progress Note ---
Subjective HPI/CC On Admission Date Seen by Provider: August 10, 2020 Time Seen by Provider: 11:30 Subjective/Events-last exam 08/10/20: Pt doing pretty well Very sedated so decreased the Percocet to one every 4 hours Bowels moving Pt appearing to have more and more emotional problems, prompting call to her PCP, Baldomero Bryant in [place], who reported she is in an unhappy marriage but no history of psych-illness I did go ahead and order a septic workup along with a drug screen to see if we can do anything other than minimize pain medication and I did update her on this plan 08/09/20: Pt doing pretty well Pain is an issue Difficulty coping Bed alarm maintained Checked meds and labs 08/08/20: Pt doing pretty well Hgb 10.9 Right knee really hurts so I will give her a one time dose of 10 mg of Oxycodone since her last dose was at at 0630 hours Able to walk with therapy 08/07/20: Feels much better since IVF given yesterday HR still 50's holding Atenolol O2 maintained Mammogram will need to be completed at day of DC Labs due tomorrow 08/06/20: Patient doing well Diarrhea all night after suppository and laxatives were given since post op Dizziness and mild hypotension noted so holding HCTZ and Atenolol RN called me back later and told me her BP was 92/50 and she felt weak so ordered NS 500cc IV bolus then 100cc/hr Labs reviewed today no evidence of sepsis No fever no elevated wbc Review of Systems General: Fatigue Musculoskeletal: leg pain Focused Exam Lactate Level 08/10/20 14:01: Lactic Acid Level 0.94 Objective Exam Vital Signs Vital Signs Date Time Temp Pulse Resp B/P (MAP) Pulse Ox O2 Delivery O2 Flow Rate FiO2 08/10/20 20:00 36.5 68 20 136/65 (88) 97 Nasal Cannula 2.00 Capillary Refill : General Appearance: No Apparent Distress, WD/WN, Chronically ill, Obese HEENT: PERRL/EOMI, Normal ENT Inspection, Pharynx Normal Neck: Full Range of Motion, Normal Inspection, Non Tender, Supple, Carotid Bruit Respiratory: Chest Non Tender, Lungs Clear, Normal Breath Sounds, No Accessory Muscle Use, No Respiratory Distress Cardiovascular: Regular Rate, Rhythm, No Edema, No Gallop, No JVD, No Murmur, Normal Peripheral Pulses Gastrointestinal: Normal Bowel Sounds, No Organomegaly, No Pulsatile Mass, Non Tender, Soft Back: Normal Inspection, No CVA Tenderness, No Vertebral Tenderness Extremity: Normal Capillary Refill, Normal Inspection, Normal Range of Motion, Non Tender, No Calf Tenderness, No Pedal Edema Neurologic/Psychiatric: Alert, Oriented x3, No Motor/Sensory Deficits, Normal Mood/Affect, learning design specialist II-XII Norm as Tested, Abnormal Gait, Motor Weakness (lower extremities) Skin: Normal Color, Warm/Dry Lymphatic: No Adenopathy Results/Procedures Lab Laboratory Tests 08/10/20 14:01 Patient resulted labs reviewed. FIM Transfers Therapy Code Descriptions/Definitions Functional [place] Measure: 0=Not Assessed/NA 4=Minimal Assistance 1=Total Assistance 5=Supervision or Setup 2=Maximal Assistance 6=Modified [place] 3=Moderate Assistance 7=Complete IndependenceSCALE: Activities may be completed with or without assistive devices. 2-Gpnhwdcmfh-epnxobe completes the activity by him/herself with no assistance from a helper. 5-Set-up or Clean-up Assistance-helper sets up or cleans up; patient completes activity. [place] assists only prior to or following the activity. 4-Supervision or Touching Assistance-helper provides verbal cues and/or touching/steadying and/or contact guard assistance as patient completes activity. Assistance may be provided throughout the activity or intermittently. 3-Partial/Moderate Assistance-helper does LESS THAN HALF the effort. [place] lifts, holds or supports trunk or limbs, but provides less than half the effort. 2-Substantial/Maximal Assistance-helper does MORE THAN HALF the effort. [place] lifts or holds trunk or limbs and provides more than half the effort. 3-Izdoqtzhk-zvtyym does ALL the effort. Patient does none of the effort to complete the activity. Or, the assistance of 2 or more helpers is required for the patient to complete the activity. If activity was not attempted, code reason: 7-Patient Refused. 9-Not Applicable-not attempted and the patient did not perform the activity before the current illness, exacerbation or injury. 10-Not Attempted due to Environmental Limitations-(lack of equipment, weather restraints, etc.). 88-Not Attempted due to Medical Conditions or Safety Concerns. Roll Left to Right (QC): 6 Sit to Lying (QC): 6 Sit to Stand (QC): 4 (SBA) Chair/Tvu-cb-Pgpke Xfer(QC): 4 (SBA) Car Transfer (QC): 4 (CGA) Gait Training Does the Patient Walk?: Yes Distance: 600', 120' Walk 10 feet (QC): 4 Walk 50 ft with 2 Turns(QC): 4 Walk 150 ft (QC): 4 Walking 10ft/uneven surface-QC: 4 Gait Persons Needed: 1 Gait Assistive Device: FWW Wheelchair Training Does the Pt Use a Wheelchair?: No Wheel 50 ft with 2 turns (QC): 9 Wheel 150 ft (QC): 9 Stair Training #of Steps: 1 1 Step (curb) (QC): 4 4 Steps (QC): 88 12 Steps (QC): 88 Balance Picking up an Object (QC): 4 ADL-Treatment Eating (QC): 6 Oral Hygiene (QC): 6 Shower/Bathe Self (QC): 4 (Supervision for safety) Upper Body Dressing (QC): 5 Lower Body Dressing (QC): 5 On/Off Footwear (QC): 5 Toileting Hygiene (QC): 6 Toilet Transfer (QC): 6 Assessment/Plan Assessment and Plan Assess & Plan/Chief Complaint Assessment: Bilateral knee replacements POD # 2 DEYA Nocturnal hypoxia HTN GERD UC Post op constipation now resolved Hypotension with weakness prompting IVF 08/06/20 Plan: Monitor knee pain IRF protocol BM regimen 08/06/20: Monitor dizziness Give IVF Hold BP meds 08/07/20: Monitor BP Increase PO fluids 08/08/20: Monitor pain Monitor BP 08/09/20: Monitor pain Monitor BP 08/10/20: Septic w/u PCP conversation was helpful (1) Status post bilateral knee replacements (2) Ulcerative colitis (3) DEYA (obstructive sleep apnea) (4) Nocturnal hypoxia (5) Hypertension (6) GERD (gastroesophageal reflux disease) SHERRI CARBAJAL DO August 10, 2020 06:11
[2020-08-10] MEDS: oxyCODONE/APAP 5/325MG (PERCOCET 5) TABLET PO PRN ×3 (06:30→21:48)
[2020-08-10] MEDS: NITROFURANTOIN 100 MG (MACROBID) CAPSULE PO SCH (06:30)
[2020-08-10] MEDS: MULTIVIT W/MINERALS TAB (THERAGRAN M) PO SCH (06:30)
[2020-08-10 08:00] VITALS: BP 110/53
[2020-08-10 09:00] VITALS: BP 143/62
[2020-08-10] MEDS: MAGNESIUM OXIDE (MAG-OX)400 MG TAB PO SCH ×2 (09:12→19:57)
[2020-08-10] MEDS: ATENOLOL 25 MG (TENORMIN) TAB PO SCH (09:12)
[2020-08-10] MEDS: ASPIRIN E.C. 81 MG (ECOTRIN) TAB PO SCH (09:12)
[2020-08-10] MEDS: PANTOPRAZOLE 40 MG (PROTONIX) TAB PO SCH (09:12)
[2020-08-10] MEDS: BALSALAZIDE 750 MG PO SCH ×3 (09:12→19:56)
[2020-08-10] MEDS: LORATADINE (CLARITIN) 10 MG TAB PO SCH (09:12)
[2020-08-10] MEDS: OXYBUTYNIN (DITROPAN) 5 MG TAB PO SCH ×2 (09:12→19:57)
[2020-08-10] MEDS: LACTOBACILLUS ACIDOPHILUS (PROBIOTIC) CAPSULE PO SCH (09:12)
[2020-08-10 09:48] VITALS: BP 107/54
--- NOTE | 2020-08-10 10:10 | Physical Therapy Daily Note ---
PT Daily Note-Current Subjective Pt laying Supine in bed with polar pack on upon arrival. Pt agrees to PT but needs to use restroom. Pain Location: Right, Left Location Body Site: Knee Pain Description: Ache Comment: Pt reported but not rated pain. Mental Status Patient Orientation: Person, Place, Time, Situation Attachments: Oxygen, Polar Pack Transfers SCALE: Activities may be completed with or without assistive devices. 9-Jxkzotrsib-mzwkada completes the activity by him/herself with no assistance from a helper. 5-Set-up or Clean-up Assistance-helper sets up or cleans up; patient completes activity. [place] assists only prior to or following the activity. 4-Supervision or Touching Assistance-helper provides verbal cues and/or touching/steadying and/or contact guard assistance as patient completes activity. Assistance may be provided throughout the activity or intermittently. 3-Partial/Moderate Assistance-helper does LESS THAN HALF the effort. [place] lifts, holds or supports trunk or limbs, but provides less than half the effort. 2-Substantial/Maximal Assistance-helper does MORE THAN HALF the effort. [place] lifts or holds trunk or limbs and provides more than half the effort. 2-Ljjrntvpx-ynnwww does ALL the effort. Patient does none of the effort to complete the activity. Or, the assistance of 2 or more helpers is required for the patient to complete the activity. If activity was not attempted, code reason: 7-Patient Refused. 9-Not Applicable-not attempted and the patient did not perform the activity before the current illness, exacerbation or injury. 10-Not Attempted due to Environmental Limitations-(lack of equipment, weather restraints, etc.). 88-Not Attempted due to Medical Conditions or Safety Concerns. Lying to Sitting/Side of Bed(Q: 5 Sit to Stand (QC): 5 Toilet Transfer (QC): 4 Assisted during transfer due to dizziness. Weight Bearing Weight Bearing/Tolerated Weight Bearing/Tolerated Gait Training Does the Patient Walk?: Yes Distance: 10' x2 Walk 10 feet (QC): 4 Gait Persons Needed: 1 Gait Assistive Device: FWW Treatments Pt asks to use BR to start tx. Pt transfers from Supine to EOB then stands, amb. part way to BR and reports dizziness. MANAGER OF PROJECT MANAGEMENT assists with transfer to toilet. BP taken. After finishing, pt attempts to stand for pericare and donning pants. Pt again reports dizziness so sits back on toilet. BP taken again. Pt stands wanting to return to EOB. Pt transfers to Supine as still not feeling well and Nurse is notified. Nurse positions pt in Trendelenburg bed position and again takes BP (see Nurse note). Nurse assessing pt and tx ends at this time. Assessment Current Status: Fair Progress BP was monitored during tx due to dizziness. 81/53 to start tx after ambulating to BR, O2 was 97% then rechecked after a few minutes 97/67, Pulse is 61. PT Short Term Goals Short Term Goals Time Frame: August 12, 2020 Roll Left & Right: 6 Sit to lyin Lying to sitting on side of be: 6 Sit to stand: 5 Chair/eti-bk-aenea transfer: 5 Walk 10 feet: 5 Walk 50 feet with two turns: 5 Walk 150 feet: 5 PT Flattening Machine Operator Goals Flattening Machine Operator Goals PT Flattening Machine Operator Goals Time Frame: August 26, 2020 Roll Left & Right (QC): 6 Sit to Lying (QC): 6 Lying-Sitting on Side/Bed(QC): 6 Sit to Stand (QC): 6 Chair/Ser-xm-Gjjrl Xfer(QC): 6 Toilet Transfer (QC): 6 Car Transfer (QC): 6 Does the Patient Walk: Yes Walk 10 feet (QC): 6 Walk 50ft with 2 Turns (QC): 6 Walk 150 ft (QC): 6 Walking 10ft on Uneven Surface: 6 1 Step (curb) (QC): 6 4 Steps (QC): 6 12 Steps (QC): 88 Picking up an Object (QC): 6 Wheel 50 feet with 2 turns (QC: 9 Wheel 150 feet: 9 PT Plan Problem List Problem List: Activity Tolerance, Functional Strength, Balance Treatment/Plan Treatment Plan: Continue Plan of Care Treatment Plan: Bed Mobility, Education, Functional Activity Ian, Functional Strength, Group Therapy, Gait, Safety, Therapeutic Exercise, Transfers Treatment Duration: August 26, 2020 Frequency: At least 5 of 7 days/Wk (IRF) Estimated Hrs Per Day: 1.5 hours per day Patient and/or Family Agrees t: Yes Safety Risks/Education Patient Education: Safety Issues Teaching Recipient: Patient Teaching Methods: Discussion Response to Teaching: Verbalize Understanding Time/GCodes Time In: 900 Time Out: 1000 Total Billed Treatment Time: 60 Total Billed Treatment 1, FA x4 (60m) SANKET ROBLES MANAGER OF PROJECT MANAGEMENT August 10, 2020 10:10
--- NOTE | 2020-08-10 13:06 | Occupational Ther Daily Note ---
OT Current Status-Daily Note Subjective Pt alert, lying in bed. Pt agrees to therapy. Pt having issues with BP today, nrsg aware and in room during 1st treatment. BP-lying 119/58, sitting 99/58, standing 100/62, walked to recliner and sat 82/54 then 3 min after 116/59. Pt c/o dizziness throughout session, was able to tolerate treatment sitting in recliner. Mental Status/Objective Patient Orientation: Person, Place, Time, Situation ADL-Treatment 2nd session([id number]): Pt requested to use toilet. Pt able to complete toilet transfer by self then cleanse self and change brief by self. Pt ambulated to sink to complete hand washing. Pt then ambulated back to bed, EOB to supine independently. After session, pt lying in bed with call light/phone in reach. All needs met in room. Therapy Code Descriptions/Definitions Functional [place] Measure: 0=Not Assessed/NA 4=Minimal Assistance 1=Total Assistance 5=Supervision or Setup 2=Maximal Assistance 6=Modified [place] 3=Moderate Assistance 7=Complete IndependenceSCALE: Activities may be completed with or without assistive devices. 3-Pgxaacqmob-bokpiug completes the activity by him/herself with no assistance from a helper. 5-Set-up or Clean-up Assistance-helper sets up or cleans up; patient completes activity. [place] assists only prior to or following the activity. 4-Supervision or Touching Assistance-helper provides verbal cues and/or touching/steadying and/or contact guard assistance as patient completes activity. Assistance may be provided throughout the activity or intermittently. 3-Partial/Moderate Assistance-helper does LESS THAN HALF the effort. [place] lifts, holds or supports trunk or limbs, but provides less than half the effort. 2-Substantial/Maximal Assistance-helper does MORE THAN HALF the effort. [place] lifts or holds trunk or limbs and provides more than half the effort. 5-Oopiiijne-blymww does ALL the effort. Patient does none of the effort to complete the activity. Or, the assistance of 2 or more helpers is required for the patient to complete the activity. If activity was not attempted, code reason: 7-Patient Refused. 9-Not Applicable-not attempted and the patient did not perform the activity before the current illness, exacerbation or injury. 10-Not Attempted due to Environmental Limitations-(lack of equipment, weather restraints, etc.). 88-Not Attempted due to Medical Conditions or Safety Concerns. Toileting Hygiene (QC): 6 Toilet Transfer (QC): 6 Other Treatment 1st session([id number]): Pt able to go from supine to EOB independently with HOB raised. Pt took increased time to complete all tasks due to dizziness and headache, see above for BP. Pt then ambulated to recliner with CGA due to dizziness. Pt then agrees to complete B UE task to work on gross and fine motor strengthening. Pt continually closed eyes and fell asleep stating that it was because of headache. Pt woke easily and continued to participate in therapy. Pt able to reach and grasp small items against gravity and place in designated areas. After therapy, pt sitting in recliner with feet elevated and sleeping. Call light/phone in reach. All needs met in room. OT Short Term Goals Short Term Goals Shower/bathe self: 5 Upper body dressin Lower body dressin Putting on/taking off footwear: 3 OT Care Home Goals Care Home Goals Time Frame: August 19, 2020 Eating (QC): 6 (met) Oral Hygiene (QC): 6 (met) Toileting Hygiene (QC): 6 (met) Shower/Bathe Self (QC): 6 Upper Body Dressing (QC): 6 Lower Body Dressing (QC): 6 On/Off Footwear (QC): 6 Additional Goals: 1-Demonstrate ADL Tasks, 2-Verbalize Understanding, 3- ImproveStrength/Ian 1=Demonstrate adherence to instructed precautions during ADL tasks. 2=Patient will verbalize/demonstrate understanding of assistive devices/modifications for ADL. 3=Patient will improve strength/tolerance for activity to enable patient to perform ADL's. OT Education/Plan Problem List/Assessment Assessment: Decreased Activ Tolerance Discharge Recommendations Plan/Recommendations: Continue POC Treatment Plan/Plan of Care Patient would benefit from OT for education, treatment and training to promote independence in ADL's, mobility, safety and/or upper extremity function for ADL's. Plan of Care: ADL Retraining, Caregiver Training, Functional Mobility, Group Exercise/Act as Ind, UE Funct Exercise/Act Treatment Duration: August 19, 2020 Frequency: At least 5 of 7 days/Wk (IRF) Estimated Hrs Per Day: 1.5 hours per day Agreement: Yes Rehab Potential: Fair Time/GCodes Start Time: 11:00 (1230) Stop Time: 12:00 (1300) Total Time Billed (hr/min): 90 Billed Treatment Time 1 visit([id number]) FA 2 (30 min), EX 2 (30 min) 1 visit([id number])FA 1 (15 min) ADL 1 (15 min) SHEKHAR MOORE August 10, 2020 13:06
[2020-08-10 14:10] LABS: BASOPHILS % (AUTO) 1 % (0-10); EOSINOPHILS # (AUTO) 0.3 10^3/uL (0.0-0.3); EOSINOPHILS % (AUTO) 4 % (0-10); HEMATOCRIT 34 % (35-52); HEMOGLOBIN 10.8 g/dL (11.5-16.0); LYMPHOCYTES # (AUTO) 1.6 10^3/uL (1.0-4.0); LYMPHOCYTES % (AUTO) 27 % (12-44); MEAN CORPUSCULAR HEMOGLOBIN 32 pg (25-34); MEAN CORPUSCULAR HGB CONC 32 g/dL (32-36); MEAN CORPUSCULAR VOLUME 101 fL (80-99); MEAN PLATELET VOLUME 9.4 fL (9.0-12.2); MONOCYTES # (AUTO) 0.5 10^3/uL (0.0-1.0); MONOCYTES % (AUTO) 9 % (0-12); NEUTROPHILS # (AUTO) 3.5 10^3/uL (1.8-7.8); NEUTROPHILS % (AUTO) 58 % (42-75); PLATELET COUNT 178 10^3/uL (130-400)
[2020-08-10 14:22] LABS: ALBUMIN 3.5 GM/DL (3.2-4.5); CHLORIDE 100 MMOL/L (98-107); POTASSIUM 4.2 MMOL/L (3.6-5.0); SODIUM 139 MMOL/L (135-145)
[2020-08-10 14:23] LABS: CALCIUM 8.9 MG/DL (8.5-10.1)
[2020-08-10 14:24] LABS: GLUCOSE 108 MG/DL (70-105); TOTAL PROTEIN 6.4 GM/DL (6.4-8.2)
[2020-08-10 14:25] LABS: CARBON DIOXIDE 31 MMOL/L (21-32)
[2020-08-10 14:26] LABS: BILIRUBIN,TOTAL 0.4 MG/DL (0.1-1.0)
[2020-08-10 14:28] LABS: ALKALINE PHOSPHATASE 71 U/L (40-136); CREATININE SERUM 0.84 MG/DL (0.60-1.30); GFR ESTIMATED > 60
[2020-08-10 14:29] LABS: BUN/CREATININE RATIO 17
[2020-08-10 14:31] LABS: ALANINE AMINOTRANSFERASE 27 U/L (0-55)
[2020-08-10 14:48] LABS: AMPHETAMINE SCREEN, URINE NEGATIVE (NEGATIVE); BARBITURATE SCREEN URINE NEGATIVE (NEGATIVE); BENZODIAZEPINES SCREEN URINE POSITIVE (NEGATIVE); CANNABINOID SCREEN, URINE NEGATIVE (NEGATIVE); COCAINE SCREEN URINE NEGATIVE (NEGATIVE); METHADONE STAT NEGATIVE (NEGATIVE); METHAMPHETAMINE SCREEN URINE S NEGATIVE (NEGATIVE); OPIATE SCREEN URINE NEGATIVE (NEGATIVE); OXYCODONE STAT POSITIVE (NEGATIVE); PROPOXYPHENE STAT NEGATIVE (NEGATIVE); TRICYCLIC ANTIDEPRESSANTS SCRE NEGATIVE (NEGATIVE)
--- NOTE | 2020-08-10 15:54 | Physical Therapy Daily Note ---
PT Daily Note-Current Subjective Pt laying Supine in bed with polar packs on upon arrival. Pt agrees to PT, asking to walk. Pain Numeric Pain Scale: 6 Location: Right, Incisional, Left Location Body Site: Knee Pain Description: Ache Mental Status Patient Orientation: Person, Place, Situation Attachments: Oxygen (2L) Transfers SCALE: Activities may be completed with or without assistive devices. 8-Ymstbvuzoa-qmwdqno completes the activity by him/herself with no assistance from a helper. 5-Set-up or Clean-up Assistance-helper sets up or cleans up; patient completes activity. [place] assists only prior to or following the activity. 4-Supervision or Touching Assistance-helper provides verbal cues and/or touching/steadying and/or contact guard assistance as patient completes activity. Assistance may be provided throughout the activity or intermittently. 3-Partial/Moderate Assistance-helper does LESS THAN HALF the effort. [place] lifts, holds or supports trunk or limbs, but provides less than half the effort. 2-Substantial/Maximal Assistance-helper does MORE THAN HALF the effort. [place] lifts or holds trunk or limbs and provides more than half the effort. 7-Nathymbvm-llbwue does ALL the effort. Patient does none of the effort to complete the activity. Or, the assistance of 2 or more helpers is required for the patient to complete the activity. If activity was not attempted, code reason: 7-Patient Refused. 9-Not Applicable-not attempted and the patient did not perform the activity before the current illness, exacerbation or injury. 10-Not Attempted due to Environmental Limitations-(lack of equipment, weather restraints, etc.). 88-Not Attempted due to Medical Conditions or Safety Concerns. Sit to Lying (QC): 5 Lying to Sitting/Side of Bed(Q: 5 Sit to Stand (QC): 5 Weight Bearing Weight Bearing/Tolerated Weight Bearing/Tolerated Gait Training Does the Patient Walk?: Yes Distance: 500' Walk 10 feet (QC): 5 Walk 50 ft with 2 Turns(QC): 4 Walk 150 ft (QC): 4 Gait Persons Needed: 1 Gait Assistive Device: FWW Wheelchair Training Does the Pt Use a Wheelchair?: No Treatments Pt transfers to standing w/o dizziness. Pt amb. in hallway, returning to room at end of amb. Pt returns to Supine in bed with polar packs on and B LE elevated on pillows. All needs met, call light in hand. Assessment Current Status: Good Progress Pt reports feeling much better this afternoon, more like herself. Pt asks to be Ad whitney in room but since morning did not go well and Dr changing dosage of medicine, will continue to monitor and maybe try Ad whitney tomorrow. PT Short Term Goals Short Term Goals Time Frame: August 12, 2020 Roll Left & Right: 6 Sit to lyin Lying to sitting on side of be: 6 Sit to stand: 5 Chair/gvr-bq-qgzkn transfer: 5 Walk 10 feet: 5 Walk 50 feet with two turns: 5 Walk 150 feet: 5 PT [place] Goals [place] Goals PT Shelter Goals Time Frame: August 26, 2020 Roll Left & Right (QC): 6 Sit to Lying (QC): 6 Lying-Sitting on Side/Bed(QC): 6 Sit to Stand (QC): 6 Chair/Jgz-wt-Fmfin Xfer(QC): 6 Toilet Transfer (QC): 6 Car Transfer (QC): 6 Does the Patient Walk: Yes Walk 10 feet (QC): 6 Walk 50ft with 2 Turns (QC): 6 Walk 150 ft (QC): 6 Walking 10ft on Uneven Surface: 6 1 Step (curb) (QC): 6 4 Steps (QC): 6 12 Steps (QC): 88 Picking up an Object (QC): 6 Wheel 50 feet with 2 turns (QC: 9 Wheel 150 feet: 9 PT Plan Problem List Problem List: Activity Tolerance Treatment/Plan Treatment Plan: Continue Plan of Care Treatment Plan: Bed Mobility, Education, Functional Activity Ian, Functional Strength, Group Therapy, Gait, Safety, Therapeutic Exercise, Transfers Treatment Duration: August 26, 2020 Frequency: At least 5 of 7 days/Wk (IRF) Estimated Hrs Per Day: 1.5 hours per day Patient and/or Family Agrees t: Yes Safety Risks/Education Patient Education: Reviewed Use of Ice, Safety Issues Teaching Recipient: Patient Teaching Methods: Discussion Response to Teaching: Verbalize Understanding Time/GCodes Time In: 1410 Time Out: 1440 Total Billed Treatment Time: 30 Total Billed Treatment 1, GT (20m) & FA (10m) SANKET ROBLES CURATOR [employer] August 10, 2020 15:53
[2020-08-10] MEDS: FLUTICASONE NASAL SPRAY (FLONASE) 16 GM BTL NS SCH (19:55)
[2020-08-10] MEDS: TEMAZEPAM 15 MG (RESTORIL) CAP PO SCH (19:56)
[2020-08-10] MEDS: RAMELTEON 8 MG (ROZEREM) TAB PO SCH (19:57)
[2020-08-10] MEDS: PARoxetine 20 MG (PAXIL) TAB PO SCH (19:57)
[2020-08-10 20:00] VITALS: BP 136/65
[2020-08-11] MEDS: oxyCODONE/APAP 5/325MG (PERCOCET 5) TABLET PO PRN ×4 (02:54→23:12)
[2020-08-11] MEDS ORDERED: oxyCODONE/APAP 10/325MG (PERCOCET 10) TABLET PO ONE (03:30)
[2020-08-11] MEDS ORDERED: oxyCODONE ER 10 MG (OxyCONTIN CR) TAB PO ONE (06:03)
[2020-08-11] MEDS: NITROFURANTOIN 100 MG (MACROBID) CAPSULE PO SCH (06:19)
[2020-08-11] MEDS: oxyCODONE ER 10 MG (OxyCONTIN CR) TAB PO SCH ×3 (06:20→21:32)
[2020-08-11] MEDS: MULTIVIT W/MINERALS TAB (THERAGRAN M) PO SCH (06:20)
[2020-08-11 08:00] VITALS: BP 140/66
[2020-08-11] MEDS: MAGNESIUM OXIDE (MAG-OX)400 MG TAB PO SCH ×2 (08:25→21:31)
[2020-08-11] MEDS: OXYBUTYNIN (DITROPAN) 5 MG TAB PO SCH ×2 (08:25→21:31)
[2020-08-11] MEDS: LORATADINE (CLARITIN) 10 MG TAB PO SCH (08:25)
[2020-08-11] MEDS: PANTOPRAZOLE 40 MG (PROTONIX) TAB PO SCH (08:25)
[2020-08-11] MEDS: LACTOBACILLUS ACIDOPHILUS (PROBIOTIC) CAPSULE PO SCH (08:25)
[2020-08-11] MEDS: ASPIRIN E.C. 81 MG (ECOTRIN) TAB PO SCH (08:25)
[2020-08-11] MEDS: BALSALAZIDE 750 MG PO SCH ×3 (08:26→21:29)
--- NOTE | 2020-08-11 09:42 | PM&R Progress Note ---
Subjective HPI/CC On Admission Date Seen by Provider: August 11, 2020 Time Seen by Provider: 09:50 Subjective/Events-last exam 08/11/20: Pt had severe pain at 3:30 in the morning so 10mg of Oxycodone was given Started on long acting Oxycodone Q8hrs to help tide her over I told her that she would not be able to refill her pain medication because of the opioid crisis Wants to go home on Saturday Bowels moved today Oxygen is used prn 08/10/20: Pt doing pretty well Very sedated so decreased the Percocet to one every 4 hours Bowels moving Pt appearing to have more and more emotional problems, prompting call to her PCP, Baldomero Bryant in [place], who reported she is in an unhappy marriage but no history of psych-illness I did go ahead and order a septic workup along with a drug screen to see if we can do anything other than minimize pain medication and I did update her on this plan 08/09/20: Pt doing pretty well Pain is an issue Difficulty coping Bed alarm maintained Checked meds and labs 08/08/20: Pt doing pretty well Hgb 10.9 Right knee really hurts so I will give her a one time dose of 10 mg of Oxycodone since her last dose was at at 0630 hours Able to walk with therapy 08/07/20: Feels much better since IVF given yesterday HR still 50's holding Atenolol O2 maintained Mammogram will need to be completed at day of DC Labs due tomorrow 08/06/20: Patient doing well Diarrhea all night after suppository and laxatives were given since post op Dizziness and mild hypotension noted so holding HCTZ and Atenolol RN called me back later and told me her BP was 92/50 and she felt weak so ordered NS 500cc IV bolus then 100cc/hr Labs reviewed today no evidence of sepsis No fever no elevated wbc Review of Systems General: Fatigue, Malaise Neurological: Weakness Focused Exam Lactate Level 08/10/20 14:01: Lactic Acid Level 0.94 Objective Exam Vital Signs Vital Signs Date Time Temp Pulse Resp B/P (MAP) Pulse Ox O2 Delivery O2 Flow Rate FiO2 08/11/20 23:42 37.0 08/11/20 21:00 Nasal Cannula 2.00 08/11/20 20:00 75 20 138/72 (94) 97 Capillary Refill : General Appearance: No Apparent Distress, WD/WN, Chronically ill, Obese HEENT: PERRL/EOMI, Normal ENT Inspection, Pharynx Normal Neck: Full Range of Motion, Normal Inspection, Non Tender, Supple, Carotid Bruit Respiratory: Chest Non Tender, Lungs Clear, Normal Breath Sounds, No Accessory Muscle Use, No Respiratory Distress Cardiovascular: Regular Rate, Rhythm, No Edema, No Gallop, No JVD, No Murmur, Normal Peripheral Pulses Gastrointestinal: Normal Bowel Sounds, No Organomegaly, No Pulsatile Mass, Non Tender, Soft Back: Normal Inspection, No CVA Tenderness, No Vertebral Tenderness Extremity: Normal Capillary Refill, Normal Inspection, Normal Range of Motion, Non Tender, No Calf Tenderness, No Pedal Edema Neurologic/Psychiatric: Alert, Oriented x3, No Motor/Sensory Deficits, Normal Mood/Affect, internet marketing strategist II-XII Norm as Tested, Abnormal Gait, Motor Weakness (lower extremities) Skin: Normal Color, Warm/Dry Lymphatic: No Adenopathy Results/Procedures Lab Patient resulted labs reviewed. FIM Transfers Therapy Code Descriptions/Definitions Functional [place] Measure: 0=Not Assessed/NA 4=Minimal Assistance 1=Total Assistance 5=Supervision or Setup 2=Maximal Assistance 6=Modified [place] 3=Moderate Assistance 7=Complete IndependenceSCALE: Activities may be completed with or without assistive devices. 3-Zwoikrdzfm-qmdrftb completes the activity by him/herself with no assistance from a helper. 5-Set-up or Clean-up Assistance-helper sets up or cleans up; patient completes activity. [place] assists only prior to or following the activity. 4-Supervision or Touching Assistance-helper provides verbal cues and/or touching/steadying and/or contact guard assistance as patient completes activity. Assistance may be provided throughout the activity or intermittently. 3-Partial/Moderate Assistance-helper does LESS THAN HALF the effort. [place] lifts, holds or supports trunk or limbs, but provides less than half the effort. 2-Substantial/Maximal Assistance-helper does MORE THAN HALF the effort. [place] lifts or holds trunk or limbs and provides more than half the effort. 1-Ceoauvmli-fodruw does ALL the effort. Patient does none of the effort to complete the activity. Or, the assistance of 2 or more helpers is required for the patient to complete the activity. If activity was not attempted, code reason: 7-Patient Refused. 9-Not Applicable-not attempted and the patient did not perform the activity before the current illness, exacerbation or injury. 10-Not Attempted due to Environmental Limitations-(lack of equipment, weather restraints, etc.). 88-Not Attempted due to Medical Conditions or Safety Concerns. Roll Left to Right (QC): 6 Sit to Lying (QC): 5 Sit to Stand (QC): 5 Chair/Gtm-xg-Asiha Xfer(QC): 4 (SBA) Car Transfer (QC): 4 (CGA) Gait Training Does the Patient Walk?: Yes Distance: 500' Walk 10 feet (QC): 5 Walk 50 ft with 2 Turns(QC): 4 Walk 150 ft (QC): 4 Walking 10ft/uneven surface-QC: 4 Gait Persons Needed: 1 Gait Assistive Device: FWW Wheelchair Training Does the Pt Use a Wheelchair?: No Wheel 50 ft with 2 turns (QC): 9 Wheel 150 ft (QC): 9 Stair Training #of Steps: 1 1 Step (curb) (QC): 4 4 Steps (QC): 88 12 Steps (QC): 88 Balance Picking up an Object (QC): 4 ADL-Treatment Eating (QC): 6 Oral Hygiene (QC): 6 Shower/Bathe Self (QC): 4 (Supervision for safety) Upper Body Dressing (QC): 5 Lower Body Dressing (QC): 5 On/Off Footwear (QC): 5 Toileting Hygiene (QC): 6 Toilet Transfer (QC): 6 Assessment/Plan Assessment and Plan Assess & Plan/Chief Complaint Assessment: Bilateral knee replacements DEYA Nocturnal hypoxia HTN GERD UC Post op constipation now resolved Hypotension with weakness prompting IVF 08/06/20 Plan: Monitor knee pain IRF protocol BM regimen 08/06/20: Monitor dizziness Give IVF Hold BP meds 08/07/20: Monitor BP Increase PO fluids 08/08/20: Monitor pain Monitor BP 08/09/20: Monitor pain Monitor BP 08/10/20: Septic w/u PCP conversation was helpful 08/11/20: Monitor pain Long acting pain meds (1) Status post bilateral knee replacements (2) Ulcerative colitis (3) DEYA (obstructive sleep apnea) (4) Nocturnal hypoxia (5) Hypertension (6) GERD (gastroesophageal reflux disease) SHERRI CARBAJAL DO August 11, 2020 09:42
--- NOTE | 2020-08-11 11:25 | Occupational Ther Daily Note ---
OT Current Status-Daily Note Subjective Pt alert, sitting in recliner. Pt agrees to therapy. Pt c/o minimal R knee pain. Pt states that she may discharge either Saturday or Saturday. Mental Status/Objective Patient Orientation: Person, Place, Time, Situation Attachments: Oxygen (2L) ADL-Treatment 1st session([id number])Pt declines shower stating she will take one tomorrow. Pt agrees to complete sponge bath. Pt retrieves clothing using FWW, dizzy spell from bending over to citrus picker clothing though clears quickly. Sitting at sink, pt complete bathing, dressing and oral care independently. Pt ambulated first to the recliner and sat down then by the end of session, transferred to bed independently. Discussed energy conservation and how pt would be able to implement at home. Pt verbalized understanding by giving own examples she does at home. After therapy, pt lying in bed with call light/phone in reach. All needs met in room. Therapy Code Descriptions/Definitions Functional [place] Measure: 0=Not Assessed/NA 4=Minimal Assistance 1=Total Assistance 5=Supervision or Setup 2=Maximal Assistance 6=Modified [place] 3=Moderate Assistance 7=Complete IndependenceSCALE: Activities may be completed with or without assistive devices. 9-Owjjqogjti-gtxcysb completes the activity by him/herself with no assistance from a helper. 5-Set-up or Clean-up Assistance-helper sets up or cleans up; patient completes activity. [place] assists only prior to or following the activity. 4-Supervision or Touching Assistance-helper provides verbal cues and/or touching/steadying and/or contact guard assistance as patient completes activity. Assistance may be provided throughout the activity or intermittently. 3-Partial/Moderate Assistance-helper does LESS THAN HALF the effort. [place] lifts, holds or supports trunk or limbs, but provides less than half the effort. 2-Substantial/Maximal Assistance-helper does MORE THAN HALF the effort. [place] lifts or holds trunk or limbs and provides more than half the effort. 9-Mdudvlfmk-kuwwhl does ALL the effort. Patient does none of the effort to complete the activity. Or, the assistance of 2 or more helpers is required for the patient to complete the activity. If activity was not attempted, code reason: 7-Patient Refused. 9-Not Applicable-not attempted and the patient did not perform the activity before the current illness, exacerbation or injury. 10-Not Attempted due to Environmental Limitations-(lack of equipment, weather restraints, etc.). 88-Not Attempted due to Medical Conditions or Safety Concerns. Oral Hygiene (QC): 6 Shower/Bathe Self (QC): 6 Upper Body Dressing (QC): 6 Lower Body Dressing (QC): 6 On/Off Footwear: 6 Toileting Hygiene (QC): 6 Toilet Transfer (QC): 6 Other Treatment 2nd session([id number])Pt lying in bed with polar pack on B knees. Pt able to manipulate polar pack, go from supine to EOB independently with HOB raised. Pt then complete toilet transfer and toileting independent using FWW. Pt c/o pain, nrsg informed and brought pain meds. Pt then ambulated with FWW to therapy gym and completed dowel jason exercises by hitting balloon continuously for 5 min without breaks. Pt left in care of PT. All needs met. OT Short Term Goals Short Term Goals Shower/bathe self: 5 Upper body dressin Lower body dressin Putting on/taking off footwear: 3 OT Senior Teradata Developer Goals Senior Teradata Developer Goals Time Frame: August 19, 2020 Eating (QC): 6 (met) Oral Hygiene (QC): 6 (met) Toileting Hygiene (QC): 6 (met) Shower/Bathe Self (QC): 6 Upper Body Dressing (QC): 6 Lower Body Dressing (QC): 6 On/Off Footwear (QC): 6 Additional Goals: 1-Demonstrate ADL Tasks, 2-Verbalize Understanding, 3- ImproveStrength/Ian 1=Demonstrate adherence to instructed precautions during ADL tasks. 2=Patient will verbalize/demonstrate understanding of assistive devices/modifications for ADL. 3=Patient will improve strength/tolerance for activity to enable patient to perform ADL's. OT Education/Plan Problem List/Assessment Assessment: Decreased Activ Tolerance, Decreased UE Strength Discharge Recommendations Plan/Recommendations: Continue POC Treatment Plan/Plan of Care Patient would benefit from OT for education, treatment and training to promote independence in ADL's, mobility, safety and/or upper extremity function for ADL's. Plan of Care: ADL Retraining, Caregiver Training, Functional Mobility, Group Exercise/Act as Ind, UE Funct Exercise/Act Treatment Duration: August 19, 2020 Frequency: At least 5 of 7 days/Wk (IRF) Estimated Hrs Per Day: 1.5 hours per day Agreement: Yes Rehab Potential: Fair Time/GCodes Start Time: 11:00 (1330) Stop Time: 12:00 (1400) Total Time Billed (hr/min): 90 Billed Treatment Time 1 visit([id number]): ADL 3 (45 min) FA 1 (15 min) 1 visit([id number]): EX 1 (8 min) FA1 (22 min) SHEKHAR MOORE August 11, 2020 11:25
--- NOTE | 2020-08-11 11:32 | Physical Therapy Daily Note ---
PT Daily Note-Current Subjective Patient supine pre tx, consents to therapy, patient reports 3/10 pain in bilateral knees. Patient denied lightheadedness today. Appearance Patient upright in chair post tx, with call button within reach and tray table nearby. All needs met. Mental Status Patient Orientation: Person, Place, Time, Normal For Age Attachments: Oxygen Transfers SCALE: Activities may be completed with or without assistive devices. 5-Thjcgmekik-nazecia completes the activity by him/herself with no assistance from a helper. 5-Set-up or Clean-up Assistance-helper sets up or cleans up; patient completes activity. [place] assists only prior to or following the activity. 4-Supervision or Touching Assistance-helper provides verbal cues and/or touching/steadying and/or contact guard assistance as patient completes activity. Assistance may be provided throughout the activity or intermittently. 3-Partial/Moderate Assistance-helper does LESS THAN HALF the effort. [place] lifts, holds or supports trunk or limbs, but provides less than half the effort. 2-Substantial/Maximal Assistance-helper does MORE THAN HALF the effort. [place] lifts or holds trunk or limbs and provides more than half the effort. 5-Mjepkbcpr-qghjor does ALL the effort. Patient does none of the effort to complete the activity. Or, the assistance of 2 or more helpers is required for the patient to complete the activity. If activity was not attempted, code reason: 7-Patient Refused. 9-Not Applicable-not attempted and the patient did not perform the activity before the current illness, exacerbation or injury. 10-Not Attempted due to Environmental Limitations-(lack of equipment, weather restraints, etc.). 88-Not Attempted due to Medical Conditions or Safety Concerns. Roll Left & Right (QC): 6 Lying to Sitting/Side of Bed(Q: 6 Sit to Stand (QC): 4 Chair/Idz-vq-Rrhrl Xfer(QC): 4 SBA. Patient steady with transfers, does not hesitate to complete movement. Weight Bearing Weight Bearing/Tolerated Weight Bearing/Tolerated Gait Training Does the Patient Walk?: Yes Distance: 1000' x2 Walk 10 feet (QC): 4 Walk 50 ft with 2 Turns(QC): 4 Walk 150 ft (QC): 4 Gait Assistive Device: FWW Patient did not demonstrate any LOB with gait, had reciprocal pattern with no evidence of limping. Exercises Seated Therapy Exercises: Ankle pumps, Long arc quads, Hip flexion, Hip abd/add (RTB, mini ball), Glut set [employer] Tinnetti to assess balance and fall risk, patient scored 24/28 (low risk). Assessment Current Status: Good Progress Patient given permission to be Ad Aisha to the bathroom, but was given strict instructions to call nurse button to get up with any sign of lightheadedness. Patient agreed. Overall, patient demonstrated improved functional mobility, gait endurance, and balance with all functional mobility. PT Short Term Goals Short Term Goals Time Frame: August 12, 2020 Roll Left & Right: 6 Sit to lyin Lying to sitting on side of be: 6 Sit to stand: 5 Chair/nnu-hm-nukgc transfer: 5 Walk 10 feet: 5 Walk 50 feet with two turns: 5 Walk 150 feet: 5 PT Detention Goals Detention Goals PT Production Engine Repairer Goals Time Frame: August 26, 2020 Roll Left & Right (QC): 6 Sit to Lying (QC): 6 Lying-Sitting on Side/Bed(QC): 6 Sit to Stand (QC): 6 Chair/Qdj-tu-Ryyzb Xfer(QC): 6 Toilet Transfer (QC): 6 Car Transfer (QC): 6 Does the Patient Walk: Yes Walk 10 feet (QC): 6 Walk 50ft with 2 Turns (QC): 6 Walk 150 ft (QC): 6 Walking 10ft on Uneven Surface: 6 1 Step (curb) (QC): 6 4 Steps (QC): 6 12 Steps (QC): 88 Picking up an Object (QC): 6 Wheel 50 feet with 2 turns (QC: 9 Wheel 150 feet: 9 PT Plan Problem List Problem List: Activity Tolerance, Functional Strength, Safety, Balance, Gait, Transfer, Bed Mobility, ROM Treatment/Plan Treatment Plan: Continue Plan of Care Treatment Plan: Bed Mobility, Education, Functional Activity Ian, Functional Strength, Group Therapy, Gait, Safety, Therapeutic Exercise, Transfers Treatment Duration: August 26, 2020 Frequency: At least 5 of 7 days/Wk (IRF) Estimated Hrs Per Day: 1.5 hours per day Patient and/or Family Agrees t: Yes Safety Risks/Education Patient Education: Gait Training, Transfer Techniques, Correct Positioning, Safety Issues Teaching Recipient: Patient Teaching Methods: Demonstration, Discussion Response to Teaching: Reinforcement Needed Time/GCodes Time In: 1000 Time Out: 1100 Total Billed Treatment Time: 60 Total Billed Treatment 1 visit: GT: 20' EX x2: 25' FA: 15' RADHA WALLACE PT August 11, 2020 11:32
[2020-08-11] MEDS ORDERED: RT-ALBUINH INH (12:57)
[2020-08-11] MEDS ORDERED: TIZA-169 PO (12:57)
[2020-08-11] MEDS ORDERED: LORA10TA7 PO (12:57)
--- NOTE | 2020-08-11 14:11 | Physical Therapy Daily Note ---
PT Daily Note-Current Subjective Patient upright in gym pre tx, with OT. Consents to PT. Notes she is tired this afternoon. Appearance Patient supine in bed post tx, with call button within reach and tray table nearby. All needs met. Mental Status Patient Orientation: Person, Place, Time, Normal For Age Attachments: Oxygen Transfers SCALE: Activities may be completed with or without assistive devices. 0-Uluhwbhtmh-bwoeiwq completes the activity by him/herself with no assistance from a helper. 5-Set-up or Clean-up Assistance-helper sets up or cleans up; patient completes activity. [place] assists only prior to or following the activity. 4-Supervision or Touching Assistance-helper provides verbal cues and/or touching/steadying and/or contact guard assistance as patient completes activity. Assistance may be provided throughout the activity or intermittently. 3-Partial/Moderate Assistance-helper does LESS THAN HALF the effort. [place] lifts, holds or supports trunk or limbs, but provides less than half the effort. 2-Substantial/Maximal Assistance-helper does MORE THAN HALF the effort. [place] lifts or holds trunk or limbs and provides more than half the effort. 6-Phsoxbytr-ifucba does ALL the effort. Patient does none of the effort to co mplete the activity. Or, the assistance of 2 or more helpers is required for the patient to complete the activity. If activity was not attempted, code reason: 7-Patient Refused. 9-Not Applicable-not attempted and the patient did not perform the activity before the current illness, exacerbation or injury. 10-Not Attempted due to Environmental Limitations-(lack of equipment, weather restraints, etc.). 88-Not Attempted due to Medical Conditions or Safety Concerns. Sit to Stand (QC): 4 SBA, patient demonstrates good stability with all movements. Weight Bearing Weight Bearing/Tolerated Weight Bearing/Tolerated Gait Training Does the Patient Walk?: Yes Distance: 800' Walk 10 feet (QC): 4 Walk 50 ft with 2 Turns(QC): 4 Walk 150 ft (QC): 4 Gait Assistive Device: FWW SBA Exercises NuStep Minutes: 15 NuStep Workload: 4 Treatments LE strengthening, gait, endurance Assessment Current Status: Good Progress Improved tolerance with NuStep today, decreased pain reports with functional mobility PT Short Term Goals Short Term Goals Time Frame: August 12, 2020 Roll Left & Right: 6 Sit to lyin Lying to sitting on side of be: 6 Sit to stand: 5 Chair/dbf-az-vzvvo transfer: 5 Walk 10 feet: 5 Walk 50 feet with two turns: 5 Walk 150 feet: 5 PT Penitentiary Goals Penitentiary Goals PT Dielectric Tester Goals Time Frame: August 26, 2020 Roll Left & Right (QC): 6 Sit to Lying (QC): 6 Lying-Sitting on Side/Bed(QC): 6 Sit to Stand (QC): 6 Chair/Wyn-ce-Pugkf Xfer(QC): 6 Toilet Transfer (QC): 6 Car Transfer (QC): 6 Does the Patient Walk: Yes Walk 10 feet (QC): 6 Walk 50ft with 2 Turns (QC): 6 Walk 150 ft (QC): 6 Walking 10ft on Uneven Surface: 6 1 Step (curb) (QC): 6 4 Steps (QC): 6 12 Steps (QC): 88 Picking up an Object (QC): 6 Wheel 50 feet with 2 turns (QC: 9 Wheel 150 feet: 9 PT Plan Problem List Problem List: Activity Tolerance, Functional Strength, Safety, Balance, Gait, Transfer, Bed Mobility, ROM Treatment/Plan Treatment Plan: Continue Plan of Care Treatment Plan: Bed Mobility, Education, Functional Activity Ian, Functional Strength, Group Therapy, Gait, Safety, Therapeutic Exercise, Transfers Treatment Duration: August 26, 2020 Frequency: At least 5 of 7 days/Wk (IRF) Estimated Hrs Per Day: 1.5 hours per day Patient and/or Family Agrees t: Yes Safety Risks/Education Patient Education: Gait Training, Transfer Techniques, Correct Positioning, Safety Issues Teaching Recipient: Patient Teaching Methods: Demonstration, Discussion Response to Teaching: Verbalize Understanding, Return Demonstration Time/GCodes Time In: 1400 Time Out: 1430 Total Billed Treatment Time: 30 Total Billed Treatment 1 visit: EX: 15' FA: 15' RADHA WALLACE PT August 11, 2020 14:10
[2020-08-11 20:00] VITALS: BP 138/72
[2020-08-11] MEDS: FLUTICASONE NASAL SPRAY (FLONASE) 16 GM BTL NS SCH (21:28)
[2020-08-11] MEDS: TEMAZEPAM 15 MG (RESTORIL) CAP PO SCH (21:29)
[2020-08-11] MEDS: PARoxetine 20 MG (PAXIL) TAB PO SCH (21:31)
[2020-08-11] MEDS: RAMELTEON 8 MG (ROZEREM) TAB PO SCH (21:31)
[2020-08-12] MEDS: MULTIVIT W/MINERALS TAB (THERAGRAN M) PO SCH (06:04)
[2020-08-12] MEDS: NITROFURANTOIN 100 MG (MACROBID) CAPSULE PO SCH (06:04)
[2020-08-12] MEDS: oxyCODONE ER 10 MG (OxyCONTIN CR) TAB PO SCH ×3 (06:05→21:10)
--- NOTE | 2020-08-12 06:17 | PM&R Progress Note ---
Subjective HPI/CC On Admission Date Seen by Provider: August 12, 2020 Time Seen by Provider: 12:30 Subjective/Events-last exam 08/12/2020: Patient dramatically improved Pain is an issue but if tolerated Discharge is planned for tomorrow Sent all pain medication to [place] [facility] Updated Dr. [place] 08/11/20: Pt had severe pain at 3:30 in the morning so 10mg of Oxycodone was given Started on long acting Oxycodone Q8hrs to help tide her over I told her that she would not be able to refill her pain medication because of the opioid crisis Wants to go home on Saturday Bowels moved today Oxygen is used prn 08/10/20: Pt doing pretty well Very sedated so decreased the Percocet to one every 4 hours Bowels moving Pt appearing to have more and more emotional problems, prompting call to her PCP, Baldomero Bryant in [place], who reported she is in an unhappy marriage but no history of psych-illness I did go ahead and order a septic workup along with a drug screen to see if we can do anything other than minimize pain medication and I did update her on this plan 08/09/20: Pt doing pretty well Pain is an issue Difficulty coping Bed alarm maintained Checked meds and labs 08/08/20: Pt doing pretty well Hgb 10.9 Right knee really hurts so I will give her a one time dose of 10 mg of Oxycodone since her last dose was at at 0630 hours Able to walk with therapy 08/07/20: Feels much better since IVF given yesterday HR still 50's holding Atenolol O2 maintained Mammogram will need to be completed at day of DC Labs due tomorrow 08/06/20: Patient doing well Diarrhea all night after suppository and laxatives were given since post op Dizziness and mild hypotension noted so holding HCTZ and Atenolol RN called me back later and told me her BP was 92/50 and she felt weak so ordered NS 500cc IV bolus then 100cc/hr Labs reviewed today no evidence of sepsis No fever no elevated wbc Review of Systems Musculoskeletal: leg pain Focused Exam Lactate Level 08/10/20 14:01: Lactic Acid Level 0.94 Objective Exam Vital Signs Vital Signs Date Time Temp Pulse Resp B/P (MAP) Pulse Ox O2 Delivery O2 Flow Rate FiO2 5/7/21 09:00 96 Nasal Cannula 2.00 08/12/20 08:00 36.2 72 18 124/61 (82) Capillary Refill : General Appearance: No Apparent Distress, WD/WN, Chronically ill, Obese HEENT: PERRL/EOMI, Normal ENT Inspection, Pharynx Normal Neck: Full Range of Motion, Normal Inspection, Non Tender, Supple, Carotid Bruit Respiratory: Chest Non Tender, Lungs Clear, Normal Breath Sounds, No Accessory Muscle Use, No Respiratory Distress Cardiovascular: Regular Rate, Rhythm, No Edema, No Gallop, No JVD, No Murmur, Normal Peripheral Pulses Gastrointestinal: Normal Bowel Sounds, No Organomegaly, No Pulsatile Mass, Non Tender, Soft Back: Normal Inspection, No CVA Tenderness, No Vertebral Tenderness Extremity: Normal Capillary Refill, Normal Inspection, Normal Range of Motion, Non Tender, No Calf Tenderness, No Pedal Edema Neurologic/Psychiatric: Alert, Oriented x3, No Motor/Sensory Deficits, Normal Mood/Affect, donor recruiter II-XII Norm as Tested, Abnormal Gait, Motor Weakness (lower extremities) Skin: Normal Color, Warm/Dry Lymphatic: No Adenopathy Results/Procedures Lab Patient resulted labs reviewed. FIM Transfers Therapy Code Descriptions/Definitions Functional [place] Measure: 0=Not Assessed/NA 4=Minimal Assistance 1=Total Assistance 5=Supervision or Setup 2=Maximal Assistance 6=Modified [place] 3=Moderate Assistance 7=Complete IndependenceSCALE: Activities may be completed with or without assistive devices. 9-Thjedthxmp-pxcctqc completes the activity by him/herself with no assistance from a helper. 5-Set-up or Clean-up Assistance-helper sets up or cleans up; patient completes activity. [place] assists only prior to or following the activity. 4-Supervision or Touching Assistance-helper provides verbal cues and/or touching/steadying and/or contact guard assistance as patient completes activity. Assistance may be provided throughout the activity or intermittently. 3-Partial/Moderate Assistance-helper does LESS THAN HALF the effort. [place] lifts, holds or supports trunk or limbs, but provides less than half the effort. 2-Substantial/Maximal Assistance-helper does MORE THAN HALF the effort. [place] lifts or holds trunk or limbs and provides more than half the effort. 8-Mjzljugwy-idehux does ALL the effort. Patient does none of the effort to complete the activity. Or, the assistance of 2 or more helpers is required for the patient to complete the activity. If activity was not attempted, code reason: 7-Patient Refused. 9-Not Applicable-not attempted and the patient did not perform the activity before the current illness, exacerbation or injury. 10-Not Attempted due to Environmental Limitations-(lack of equipment, weather restraints, etc.). 88-Not Attempted due to Medical Conditions or Safety Concerns. Roll Left to Right (QC): 6 Sit to Lying (QC): 5 Sit to Stand (QC): 4 Chair/Bot-dd-Veuli Xfer(QC): 4 Car Transfer (QC): 4 (CGA) Gait Training Does the Patient Walk?: Yes Distance: 800' Walk 10 feet (QC): 4 Walk 50 ft with 2 Turns(QC): 4 Walk 150 ft (QC): 4 Walking 10ft/uneven surface-QC: 4 Gait Persons Needed: 1 Gait Assistive Device: FWW Wheelchair Training Does the Pt Use a Wheelchair?: No Wheel 50 ft with 2 turns (QC): 9 Wheel 150 ft (QC): 9 Stair Training #of Steps: 1 1 Step (curb) (QC): 4 4 Steps (QC): 88 12 Steps (QC): 88 Balance Picking up an Object (QC): 4 ADL-Treatment Eating (QC): 6 Oral Hygiene (QC): 6 Shower/Bathe Self (QC): 6 Upper Body Dressing (QC): 6 Lower Body Dressing (QC): 6 On/Off Footwear (QC): 6 Toileting Hygiene (QC): 6 Toilet Transfer (QC): 6 Assessment/Plan Assessment and Plan Assess & Plan/Chief Complaint Assessment: Bilateral knee replacements DEYA Nocturnal hypoxia HTN GERD UC Post op constipation now resolved Hypotension with weakness prompting IVF 08/06/20 Plan: Monitor knee pain IRF protocol BM regimen 08/06/20: Monitor dizziness Give IVF Hold BP meds 08/07/20: Monitor BP Increase PO fluids 08/08/20: Monitor pain Monitor BP 08/09/20: Monitor pain Monitor BP 08/10/20: Septic w/u PCP conversation was helpful 08/11/20: Monitor pain Long acting pain meds 08/12/2020: Discharge tomorrow Everything arranged (1) Status post bilateral knee replacements (2) Ulcerative colitis (3) DEYA (obstructive sleep apnea) (4) Nocturnal hypoxia (5) Hypertension (6) GERD (gastroesophageal reflux disease) SHERRI CARBAJAL DO August 12, 2020 06:17
[2020-08-12 08:00] VITALS: BP 124/61
[2020-08-12] MEDS: LACTOBACILLUS ACIDOPHILUS (PROBIOTIC) CAPSULE PO SCH (08:20)
[2020-08-12] MEDS: oxyCODONE/APAP 5/325MG (PERCOCET 5) TABLET PO PRN ×3 (08:25→16:49)
[2020-08-12] MEDS: ASPIRIN E.C. 81 MG (ECOTRIN) TAB PO SCH (08:26)
[2020-08-12] MEDS: BALSALAZIDE 750 MG PO SCH ×3 (08:26→21:10)
[2020-08-12] MEDS: LORATADINE (CLARITIN) 10 MG TAB PO SCH (08:26)
[2020-08-12] MEDS: OXYBUTYNIN (DITROPAN) 5 MG TAB PO SCH ×2 (08:26→21:09)
[2020-08-12] MEDS: MAGNESIUM OXIDE (MAG-OX)400 MG TAB PO SCH ×2 (08:26→21:09)
[2020-08-12] MEDS: PANTOPRAZOLE 40 MG (PROTONIX) TAB PO SCH (08:35)
--- NOTE | 2020-08-12 10:34 | Physical Therapy Daily Note ---
PT Daily Note-Current Subjective Patient upright in bed pre tx. Consents to PT. Patient reports 5/10 pain in bilateral knees. Appearance Patient supine in bed with call button and tray table within reach. All needs met. Mental Status Patient Orientation: Person, Place, Time, Normal For Age Attachments: Polar Pack Transfers SCALE: Activities may be completed with or without assistive devices. 1-Dllztnncod-vdfjbel completes the activity by him/herself with no assistance from a helper. 5-Set-up or Clean-up Assistance-helper sets up or cleans up; patient completes activity. [place] assists only prior to or following the activity. 4-Supervision or Touching Assistance-helper provides verbal cues and/or touching/steadying and/or contact guard assistance as patient completes activity. Assistance may be provided throughout the activity or intermittently. 3-Partial/Moderate Assistance-helper does LESS THAN HALF the effort. [place] lifts, holds or supports trunk or limbs, but provides less than half the effort. 2-Substantial/Maximal Assistance-helper does MORE THAN HALF the effort. [place] lifts or holds trunk or limbs and provides more than half the effort. 5-Jeeibsrus-wcgoet does ALL the effort. Patient does none of the effort to complete the activity. Or, the assistance of 2 or more helpers is required for the patient to complete the activity. If activity was not attempted, code reason: 7-Patient Refused. 9-Not Applicable-not attempted and the patient did not perform the activity before the current illness, exacerbation or injury. 10-Not Attempted due to Environmental Limitations-(lack of equipment, weather restraints, etc.). 88-Not Attempted due to Medical Conditions or Safety Concerns. Roll Left & Right (QC): 6 Sit to Lying (QC): 6 Lying to Sitting/Side of Bed(Q: 6 Sit to Stand (QC): 6 Chair/Gpj-sz-Tlrjr Xfer(QC): 6 Toilet Transfer (QC): 6 Car Transfer (QC): 6 Patient performs all transfers with stability. Weight Bearing Weight Bearing/Tolerated Weight Bearing/Tolerated Gait Training Does the Patient Walk?: Yes Distance: 100', 1200', 600' Walk 10 feet (QC): 6 Walk 50 ft with 2 Turns(QC): 6 Walk 150 ft (QC): 6 Walking 10ft/uneven surface-QC: 6 Gait Assistive Device: FWW Patient is steady with gait, good pacing, reciprocal gait pattern demonstrated Wheelchair Training Wheel 50 ft with 2 turns (QC): 9 Wheel 150 ft (QC): 9 Stair Training Stair Training: Handrails/: 2 handrails #of Steps: 12 1 Step (curb) (QC): 6 4 Steps (QC): 6 12 Steps (QC): 6 Stairs: Pattern: Reciprocal Balance Picking up an Object (QC): 6 Exercises Supine Ex: Ankle pumps, Glut sets, Heel Slides, Short Arc Quads, Straight leg raise Supine Reps: 20 Standing: Heel/toe raises, 3 way Ex=Flex, Abd, Ext, Marching Standing Reps: 20 Treatments LE strengthening, ROM, endurance, gait, transfers Assessment Current Status: Good Progress Patient demonstrates good endurance with all activity, does not require extensive rest breaks. However, she does seem to move impulsively with little attention paid to her O2 line. PT Short Term Goals Short Term Goals Time Frame: August 12, 2020 Roll Left & Right: 6 Sit to lyin Lying to sitting on side of be: 6 Sit to stand: 5 Chair/ajr-qw-qhhta transfer: 5 Walk 10 feet: 5 Walk 50 feet with two turns: 5 Walk 150 feet: 5 PT Senior Living Goals Senior Living Goals PT Senior Living Goals Time Frame: August 26, 2020 Roll Left & Right (QC): 6 Sit to Lying (QC): 6 Lying-Sitting on Side/Bed(QC): 6 Sit to Stand (QC): 6 Chair/Ure-xb-Kimwo Xfer(QC): 6 Toilet Transfer (QC): 6 Car Transfer (QC): 6 Does the Patient Walk: Yes Walk 10 feet (QC): 6 Walk 50ft with 2 Turns (QC): 6 Walk 150 ft (QC): 6 Walking 10ft on Uneven Surface: 6 1 Step (curb) (QC): 6 4 Steps (QC): 6 12 Steps (QC): 88 Picking up an Object (QC): 6 Wheel 50 feet with 2 turns (QC: 9 Wheel 150 feet: 9 PT Plan Problem List Problem List: Activity Tolerance, Functional Strength, Safety, Balance, Gait, Transfer, Bed Mobility, ROM Treatment/Plan Treatment Plan: Continue Plan of Care Treatment Plan: Bed Mobility, Education, Functional Activity Ian, Functional Strength, Group Therapy, Gait, Safety, Therapeutic Exercise, Transfers Treatment Duration: August 26, 2020 Frequency: At least 5 of 7 days/Wk (IRF) Estimated Hrs Per Day: 1.5 hours per day Patient and/or Family Agrees t: Yes Safety Risks/Education Patient Education: Gait Training, Transfer Techniques, Steps, Correct Po sitioning, Safety Issues Teaching Recipient: Patient Teaching Methods: Demonstration, Discussion Response to Teaching: Verbalize Understanding, Return Demonstration Time/GCodes Time In: 0900 Time Out: 1000 Total Billed Treatment Time: 60 Total Billed Treatment 1 visit: EX x2: 30' FA: 15' GT: 15' RADHA WALLACE PT August 12, 2020 10:34
[2020-08-12] MEDS ORDERED: ATEN25TA PO (11:05)
[2020-08-12] MEDS ORDERED: OXYC10TA55 PO (11:05)
[2020-08-12] MEDS ORDERED: TIZA-169 PO (11:05)
[2020-08-12] MEDS ORDERED: OXYC1TAB87 PO (11:05)
--- NOTE | 2020-08-12 11:07 | D/C HH Face to Face Order ---
D/C Face to Face Orders Reconcile Patient Problems Problems Reviewed?: Yes Instructions for Patient Home Health Patient Instructions/FollowUp: Baldomero Johnston in 1 week Physician to follow Patient: Manny Discharge Diet for Home: No Restrictions Patient Problems: Bilateral knee replacements Patient Data-Allergies,Ht & Wt Patient Allergies: Coded Allergies: Sulfa (Sulfonamide Antibiotics) (Verified Allergy, Unknown, 08/05/20) hylan G-F 20 (Verified Allergy, Unknown, 08/05/20) metoclopramide (Verified Allergy, Unknown, 08/05/20) pregabalin (Verified Allergy, Unknown, 08/05/20) Home Health Need/Face to Face Date of Face to Face: August 12, 2020 Clinical Findings: Generalized weakness and fatigue, Instability, Muscle weakness, Pain with ambulation, Unsteady gait I have seen Pt yyuv-qy-vwkb: Yes Discharged To: Home Diagnosis/Conditions: Knee replacements bilateral Patient is Homebound due to: [place] fall risk due to instabilty, Muscle weakness, Pain w/ambulation Homebound Status Due to the above stated illness, injury or surgical procedure (medical condition or diagnosis) and associated clinical findings, the patient is homebound because of his/her inability to leave home except with aid of a supportive device and/or person AND leaving the home requires a considerable and taxing effort or is medically contraindicated. Pt req the following assistanc: Walker Home Health Nursing Orders Home Health Services Order: Nursing Services, [employer]kes-Evaluate & Treat, Physical Therapy-Evaluate & Treat Certify Stmt I certify that this patient is under my care and that I, a nurse practitioner or a physician; a sound assistant working with me, had a face to face encounter that - meets the physician face to face encounter requirements with this patient as dated. SHERRI CARBAJAL DO August 12, 2020 11:07
--- NOTE | 2020-08-12 11:11 | Occupational Ther Daily Note ---
OT Current Status-Daily Note Subjective Pt alert, lying in bed. Pt is up ad whitney in room. Pt agrees to therapy. No c/o pain at this time. Pt to go home Saturday. Mental Status/Objective Patient Orientation: Person, Place, Time, Situation Attachments: Oxygen (2L) ADL-Treatment Pt agrees to shower. Pt used FWW retrieve clothing and transport to bathroom independently. Pt completed toileting and shower independently. Pt used shower bench, grabbars, hand held shower to complete shower. Pt stands at sink to complete oral care. Using clinical judgment, pt able to set up own meal and use regular utensils to eat. Therapy Code Descriptions/Definitions Functional [place] Measure: 0=Not Assessed/NA 4=Minimal Assistance 1=Total Assistance 5=Supervision or Setup 2=Maximal Assistance 6=Modified [place] 3=Moderate Assistance 7=Complete IndependenceSCALE: Activities may be completed with or without assistive devices. 6-Kgweajjazp-llwqcvz completes the activity by him/herself with no assistance from a helper. 5-Set-up or Clean-up Assistance-helper sets up or cleans up; patient completes activity. [place] assists only prior to or following the activity. 4-Supervision or Touching Assistance-helper provides verbal cues and/or touching/steadying and/or contact guard assistance as patient completes acti vity. Assistance may be provided throughout the activity or intermittently. 3-Partial/Moderate Assistance-helper does LESS THAN HALF the effort. [place] lifts, holds or supports trunk or limbs, but provides less than half the effort. 2-Substantial/Maximal Assistance-helper does MORE THAN HALF the effort. [place] lifts or holds trunk or limbs and provides more than half the effort. 7-Djmmhobuo-oqgswe does ALL the effort. Patient does none of the effort to complete the activity. Or, the assistance of 2 or more helpers is required for the patient to complete the activity. If activity was not attempted, code reason: 7-Patient Refused. 9-Not Applicable-not attempted and the patient did not perform the activity before the current illness, exacerbation or injury. 10-Not Attempted due to Environmental Limitations-(lack of equipment, weather restraints, etc.). 88-Not Attempted due to Medical Conditions or Safety Concerns. Eating (QC): 6 Oral Hygiene (QC): 6 Shower/Bathe Self (QC): 6 Upper Body Dressing (QC): 6 Lower Body Dressing (QC): 6 On/Off Footwear: 6 Toileting Hygiene (QC): 6 Toilet Transfer (QC): 6 Other Treatment Pt ambulates to therapy gym using FWW. Pt completes arm bike for 15 min at 20 welch resistance to increase strength and activity tolerance for daily functional tasks. After therapy, pt lying in bed with call light/phone in reach. All needs met in room. OT Short Term Goals Short Term Goals Shower/bathe self: 5 Upper body dressin Lower body dressin Putting on/taking off footwear: 3 OT Long-Term Goals Long-Term Goals Time Frame: August 19, 2020 Eating (QC): 6 (met) Oral Hygiene (QC): 6 (met) Toileting Hygiene (QC): 6 (met) Shower/Bathe Self (QC): 6 Upper Body Dressing (QC): 6 Lower Body Dressing (QC): 6 On/Off Footwear (QC): 6 Additional Goals: 1-Demonstrate ADL Tasks, 2-Verbalize Understanding, 3- ImproveStrength/Ian 1=Demonstrate adherence to instructed precautions during ADL tasks. 2=Patient will verbalize/demonstrate understanding of assistive devices/modifications for ADL. 3=Patient will improve strength/tolerance for activity to enable patient to perform ADL's. OT Education/Plan Problem List/Assessment Assessment: Decreased Activ Tolerance Discharge Recommendations Plan/Recommendations: Continue POC Treatment Plan/Plan of Care Patient would benefit from OT for education, treatment and training to promote independence in ADL's, mobility, safety and/or upper extremity function for ADL's. Plan of Care: ADL Retraining, Caregiver Training, Functional Mobility, Group Exercise/Act as Ind, UE Funct Exercise/Act Treatment Duration: August 19, 2020 Frequency: At least 5 of 7 days/Wk (IRF) Estimated Hrs Per Day: 1.5 hours per day Agreement: Yes Rehab Potential: Fair Time/GCodes Start Time: 10:30 Stop Time: 12:00 Total Time Billed (hr/min): 90 Billed Treatment Time 1 visit-ADL 5 (75 min) EX 1 (15 min) SHEKHAR MOORE August 12, 2020 11:11
--- NOTE | 2020-08-12 13:08 | Therapy Team Discharge Summary ---
Therapy Discharge Summary Discharge Recommendations Date of Discharge 08/13/20 Physical Therapy Patient came to rehab following bilateral total knee revisions. Upon evaluation patient performed bed mobility with independence, supine <-> sit with SBA, sit <-> stand and transfers with CGA, car transfer CGA, ambulated 300' with a rolling walker with CGA (including 50' with at least 2 turns of 90 degrees and 10' over an uneven surface), picked up an object from the floor with CGA, and went up and down 1 step using a rolling walker with CGA. Patient has been performing bed mobility and transfer training, balance and endurance training, functional strengthening, stair training, gait training, and education. Patient has made good progress and has met all of her alf goals. Now, patient performs bed mobility and transfers with independence, independent with car transfers, ambulates 1200' with a rolling walker with independence (including 50' with at least 2 turns of 90 degrees and 10' over an uneven surface), can supervisor picking crew an object from the floor with independence, and can go up and down 12 steps using 2 handrails with independence. Patient is discharging tomorrow and will be discharged from PT at that time. Occupational Therapy Decreased Activ Tolerance PT Detention Goals Emblem Cutter Goals PT Emblem Cutter Goals Time Frame: August 26, 2020 Roll Left to Right (QC): 6 Sit to Lying (QC): 6 Lying-Sitting on Side/Bed(QC): 6 Sit to Stand (QC): 6 Chair/Qma-it-Hugug Xfer(QC): 6 Car Transfer (QC): 6 Does the Patient Walk: Yes Walk 10 feet (QC): 6 Walk 10ft-Uneven Surface(QC): 6 Walk 50ft with 2 Turns (QC): 6 Walk 150 ft (QC): 6 Wheel 50 feet with 2 turns (QC: 9 1 Step (curb) (QC): 6 4 Steps (QC): 6 12 Steps (QC): 88 Picking up an Object (QC): 6 OT Detention Goals Emblem Cutter Goals Time Frame: August 19, 2020 Eating (QC): 6 (met) Oral Hygiene (QC): 6 (met) Shower/Bathe Self (QC): 6 Upper Body Dressing (QC): 6 Lower Body Dressing (QC): 6 On/Off Footwear (QC): 6 Toileting Hygiene (QC): 6 (met) Toilet/Commode Transfer (QC): 6 Additional Goals: 1-Demonstrate ADL Tasks, 2-Verbalize Understanding, 3- ImproveStrength/Ian 1=Demonstrate adherence to instructed precautions during ADL tasks. 2=Patient will verbalize/demonstrate understanding of assistive devices/modifications for ADL. 3=Patient will improve strength/tolerance for activity to enable patient to perform ADL's. RADHA WALLACE PT August 12, 2020 13:08
--- NOTE | 2020-08-12 13:45 | Physical Therapy Daily Note ---
PT Daily Note-Current Subjective Patient supine in bed pre tx, reports moderate, unrated pain. Consents to therapy. Appearance Patient supine in bed post tx, with call button within reach and tray table nearby. All needs met. Mental Status Patient Orientation: Person, Place, Time, Normal For Age Attachments: Oxygen, Polar [place] Transfers SCALE: Activities may be completed with or without assistive devices. 9-Aagscoqllk-qelnceu completes the activity by him/herself with no assistance from a helper. 5-Set-up or Clean-up Assistance-helper sets up or cleans up; patient completes activity. [place] assists only prior to or following the activity. 4-Supervision or Touching Assistance-helper provides verbal cues and/or touching/steadying and/or contact guard assistance as patient completes activity. Assistance may be provided throughout the activity or intermittently. 3-Partial/Moderate Assistance-helper does LESS THAN HALF the effort. [place] lifts, holds or supports trunk or limbs, but provides less than half the effort. 2-Substantial/Maximal Assistance-helper does MORE THAN HALF the effort. [place] lifts or holds trunk or limbs and provides more than half the effort. 2-Kvmcptpek-mockmo does ALL the effort. Patient does none of the effort to complete the activity. Or, the assistance of 2 or more helpers is required for the patient to complete the activity. If activity was not attempted, code reason: 7-Patient Refused. 9-Not Applicable-not attempted and the patient did not perform the activity before the current illness, exacerbation or injury. 10-Not Attempted due to Environmental Limitations-(lack of equipment, weather restraints, etc.). 88-Not Attempted due to Medical Conditions or Safety Concerns. Roll Left & Right (QC): 6 Sit to Lying (QC): 6 Sit to Stand (QC): 6 Chair/Noi-ro-Lsodl Xfer(QC): 6 Weight Bearing Weight Bearing/Tolerated Weight Bearing/Tolerated Gait Training Does the Patient Walk?: Yes Distance: 120' x2 Walk 10 feet (QC): 6 Walk 50 ft with 2 Turns(QC): 6 Gait Assistive Device: FWW Patient is steady with gait, is slow this afternoon secondary to pain complaints. Exercises NuStep Minutes: 15 NuStep Workload: 4 Treatments LE strengthening, transfers, endurance Assessment Current Status: Fair Progress Patient able to perform nustep despite pain complaints, slow pace. PT Short Term Goals Short Term Goals Time Frame: August 12, 2020 Roll Left & Right: 6 Sit to lyin Lying to sitting on side of be: 6 Sit to stand: 5 Chair/gax-to-oavzh transfer: 5 Walk 10 feet: 5 Walk 50 feet with two turns: 5 Walk 150 feet: 5 PT Bottle Blowing Machine Tender Goals [facility] Goals PT [facility] Goals Time Frame: August 26, 2020 Roll Left & Right (QC): 6 Sit to Lying (QC): 6 Lying-Sitting on Side/Bed(QC): 6 Sit to Stand (QC): 6 Chair/Sqo-yx-Qucnx Xfer(QC): 6 Toilet Transfer (QC): 6 Car Transfer (QC): 6 Does the Patient Walk: Yes Walk 10 feet (QC): 6 Walk 50ft with 2 Turns (QC): 6 Walk 150 ft (QC): 6 Walking 10ft on Uneven Surface: 6 1 Step (curb) (QC): 6 4 Steps (QC): 6 12 Steps (QC): 88 Picking up an Object (QC): 6 Wheel 50 feet with 2 turns (QC: 9 Wheel 150 feet: 9 PT Plan Problem List Problem List: Activity Tolerance, Functional Strength, Safety, Balance, Gait, Transfer, Bed Mobility, ROM Treatment/Plan Treatment Plan: Continue Plan of Care Treatment Plan: Bed Mobility, Education, Functional Activity Ian, Functional Strength, Group Therapy, Gait, Safety, Therapeutic Exercise, Transfers Treatment Duration: August 26, 2020 Frequency: At least 5 of 7 days/Wk (IRF) Estimated Hrs Per Day: 1.5 hours per day Patient and/or Family Agrees t: Yes Safety Risks/Education Patient Education: Gait Training, Transfer Techniques, Correct Positioning, Safety Issues Teaching Recipient: Patient Teaching Methods: Demonstration, Discussion Response to Teaching: Verbalize Understanding, Return Demonstration Time/GCodes Time In: 1315 Time Out: 1345 Total Billed Treatment Time: 30 Total Billed Treatment 1 visit: EX: 15' FA: 15' RADHA WALLACE PT August 12, 2020 13:45
[2020-08-12] MEDS: RT-ALBUTEROL/IPRATROPIUM 3 ML (DUONEB) VIAL IH PRN ×2 (18:23→22:07)
[2020-08-12 19:43] VITALS: BP 142/73
[2020-08-12] MEDS: RAMELTEON 8 MG (ROZEREM) TAB PO SCH (21:09)
[2020-08-12] MEDS: TEMAZEPAM 15 MG (RESTORIL) CAP PO SCH (21:09)
[2020-08-12] MEDS: PARoxetine 20 MG (PAXIL) TAB PO SCH (21:09)
[2020-08-12] MEDS: FLUTICASONE NASAL SPRAY (FLONASE) 16 GM BTL NS SCH (21:11)
[2020-08-13] MEDS: MULTIVIT W/MINERALS TAB (THERAGRAN M) PO SCH (06:29)
[2020-08-13] MEDS: NITROFURANTOIN 100 MG (MACROBID) CAPSULE PO SCH (06:29)
[2020-08-13] MEDS: oxyCODONE ER 10 MG (OxyCONTIN CR) TAB PO SCH (06:30)
--- NOTE | 2020-08-13 07:45 | Discharge Summary ---
Diagnosis/Chief Complaint Date of Admission Aug 05, 2020 at 14:24 Date of Discharge Discharge Date: August 13, 2020 Discharge Diagnosis Assessment: Bilateral knee replacements DEYA Nocturnal hypoxia HTN GERD UC Post op constipation now resolved Hypotension with weakness prompting IVF 08/06/20 Plan: Monitor knee pain IRF protocol BM regimen 08/06/20: Monitor dizziness Give IVF Hold BP meds 08/07/20: Monitor BP Increase PO fluids 08/08/20: Monitor pain Monitor BP 08/09/20: Monitor pain Monitor BP 08/10/20: Septic w/u PCP conversation was helpful 08/11/20: Monitor pain Long acting pain meds 08/12/2020: Discharge tomorrow Everything arranged (1) Status post bilateral knee replacements (2) Ulcerative colitis (3) DEYA (obstructive sleep apnea) (4) Nocturnal hypoxia (5) Hypertension (6) GERD (gastroesophageal reflux disease) Discharge Summary Discharge Physical Examination Allergies: Coded Allergies: Sulfa (Sulfonamide Antibiotics) (Verified Allergy, Unknown, 08/05/20) hylan G-F 20 (Verified Allergy, Unknown, 08/05/20) metoclopramide (Verified Allergy, Unknown, 08/05/20) pregabalin (Verified Allergy, Unknown, 08/05/20) Vitals & I&Os Vital Signs Date Time Temp Pulse Resp B/P (MAP) Pulse Ox O2 Delivery O2 Flow Rate FiO2 08/13/20 14:00 36.8 88 18 130/58 96 Nasal Cannula 2.00 General Appearance: Alert, Oriented X3, Cooperative Respiratory: Clear to Auscultation Cardiovascular: Regular Rate Neuro: Normal Speech, Strength at 5/5 X4 Ext Psych/Mental Status: Mental Status NL Hospital Course Was the Problem List Reviewed?: Yes Lengthy course in IRF after moving from [place] after uneventful B/L knee replacements. Baseline O2 dependence was maintained and narcotic bowel resolved with laxatives and suppository. Pain was an issue during her stay and I tried to manage it the best possible but she still continued to have pain far worse than expected so long after surgery and I did update Dr South on this along with her PCP in [place]. Odd behavior noted with mood swings and unusual statements which could be assessed to be hallucinations but they resolved by DC date. Relationship with seemed to be very strained and PCP confirmed that fact and it was apparent at DC the discontent between the two but regardless she was able to regain function and ambulate with walker and was able to DC in improved condition. Labs (last 24 hrs) Laboratory Tests 08/06/20 05:42: White Blood Count 7.0, Red Blood Count 3.36L, Hemoglobin 10.6L, Hematocrit 33L, Mean Corpuscular Volume 97, Mean Corpuscular Hemoglobin 32, Mean Corpuscular Hemoglobin Concent 33, Red Cell Distribution Width 14.1, Platelet Count 178, Mean Platelet Volume 9.7, Immature Granulocyte % (Auto) 1, Neutrophils (%) (Auto) 61, Lymphocytes (%) (Auto) 30, Monocytes (%) (Auto) 8, Eosinophils (%) (Auto) 1, Basophils (%) (Auto) 0, Neutrophils # (Auto) 4.3, Lymphocytes # (Auto) 2.1, Monocytes # (Auto) 0.6, Eosinophils # (Auto) 0.1, Basophils # (Auto) 0.0, Immature Granulocyte # (Auto) 0.1, Sodium Level 139, Potassium Level 3.8, Chloride Level 104, Carbon Dioxide Level 30, Anion Gap 5, Blood Urea Nitrogen 18, Creatinine 0.82, Estimat Glomerular Filtration Rate > 60, BUN/Creatinine Ratio 22, Glucose Level 115H, Calcium Level 7.9L, Corrected Calcium 8.6, Total Bilirubin 0.2, Aspartate Amino Transf (AST/SGOT) 25, Alanine Aminotransferase (ALT/SGPT) 21, Alkaline Phosphatase 59, Total Protein 5.6L, Albumin 3.1L 08/08/20 05:35: White Blood Count 6.0, Red Blood Count 3.44L, Hemoglobin 10.9L, Hematocrit 34L, Mean Corpuscular Volume 99, Mean Corpuscular Hemoglobin 32, Mean Corpuscular Hemoglobin Concent 32, Red Cell Distribution Width 14.0, Platelet Count 177, Mean Platelet Volume 9.4, Immature Granulocyte % (Auto) 1, Neutrophils (%) (Auto) 55, Lymphocytes (%) (Auto) 33, Monocytes (%) (Auto) 7, Eosinophils (%) (Auto) 4, Basophils (%) (Auto) 1, Neutrophils # (Auto) 3.3, Lymphocytes # (Auto) 2.0, Monocytes # (Auto) 0.4, Eosinophils # (Auto) 0.2, Basophils # (Auto) 0.0, Immature Granulocyte # (Auto) 0.1, Sodium Level 142, Potassium Level 4.2, Chloride Level 103, Carbon Dioxide Level 30, Anion Gap 9, Blood Urea Nitrogen 15, Creatinine 0.88, Estimat Glomerular Filtration Rate > 60, BUN/Creatinine Ratio 17, Glucose Level 107H, Calcium Level 8.5, Corrected Calcium 9.1, Total Bilirubin 0.4, Aspartate Amino Transf (AST/SGOT) 31, Alanine Aminotransferase (ALT/SGPT) 26, Alkaline Phosphatase 60, Total Protein 6.0L, Albumin 3.2 08/10/20 14:01: White Blood Count 6.0, Red Blood Count 3.33L, Hemoglobin 10.8L, Hematocrit 34L, Mean Corpuscular Volume 101H, Mean Corpuscular Hemoglobin 32, Mean Corpuscular Hemoglobin Concent 32, Red Cell Distribution Width 14.0, Platelet Count 178, Mean Platelet Volume 9.4, Immature Granulocyte % (Auto) 1, Neutrophils (%) (Auto) 58, Lymphocytes (%) (Auto) 27, Monocytes (%) (Auto) 9, Eosinophils (%) (Auto) 4, Basophils (%) (Auto) 1, Neutrophils # (Auto) 3.5, Lymphocytes # (Auto) 1.6, Monocytes # (Auto) 0.5, Eosinophils # (Auto) 0.3, Basophils # (Auto) 0.0, Immature Granulocyte # (Auto) 0.1, Sodium Level 139, Potassium Level 4.2, Chloride Level 100, Carbon Dioxide Level 31, Anion Gap 8, Blood Urea Nitrogen 14, Creatinine 0.84, Estimat Glomerular Filtration Rate > 60, BUN/Creatinine Ratio 17, Glucose Level 108H, Calcium Level 8.9, Corrected Calcium 9.3, Total Bilirubin 0.4, Aspartate Amino Transf (AST/SGOT) 34, Alanine Aminotransferase (ALT/SGPT) 27, Alkaline Phosphatase 71, Total Protein 6.4, Albumin 3.5, Lactic Acid Level 0.94, Procalcitonin 0.06 08/10/20 14:10: Urine Opiates Screen NEGATIVE, Urine Oxycodone Screen POSITIVEH, Urine Methadone Screen NEGATIVE, Urine Propoxyphene Screen NEGATIVE, Urine Barbiturates Screen NEGATIVE, Ur Tricyclic Antidepressants Screen NEGATIVE, Urine Phencyclidine Scr een NEGATIVE, Urine Amphetamines Screen NEGATIVE, Urine Methamphetamines Screen NEGATIVE, Urine Benzodiazepines Screen POSITIVEH, Urine Cocaine Screen NEGATIVE, Urine Cannabinoids Screen NEGATIVE Pending Labs Laboratory Tests 08/06/20 05:42: White Blood Count 7.0, Red Blood Count 3.36, Hemoglobin 10.6, Hematocrit 33, Me an Corpuscular Volume 97, Mean Corpuscular Hemoglobin 32, Mean Corpuscular Hemoglobin Concent 33, Red Cell Distribution Width 14.1, Platelet Count 178, Mean Platelet Volume 9.7, Immature Granulocyte % (Auto) 1, Neutrophils (%) (Auto) 61, Lymphocytes (%) (Auto) 30, Monocytes (%) (Auto) 8, Eosinophils (%) (Auto) 1, Basophils (%) (Auto) 0, Neutrophils # (Auto) 4.3, Lymphocytes # (Auto) 2.1, Monocytes # (Auto) 0.6, Eosinophils # (Auto) 0.1, Basophils # (Auto) 0.0, Immature Granulocyte # (Auto) 0.1, Sodium Level 139, Potassium Level 3.8, Chloride Level 104, Carbon Dioxide Level 30, Anion Gap 5, Blood Urea Nitrogen 18, Creatinine 0.82, Estimat Glomerular Filtration Rate > 60, BUN/Creatinine Ratio 22, Glucose Level 115, Calcium Level 7.9, Corrected Calcium 8.6, Total Bilirubin 0.2, Aspartate Amino Transf (AST/SGOT) 25, Alanine Aminotransferase (ALT/SGPT) 21, Alkaline Phosphatase 59, Total Protein 5.6, Albumin 3.1 08/08/20 05:35: White Blood Count 6.0, Red Blood Count 3.44, Hemoglobin 10.9, Hematocrit 34, Mean Corpuscular Volume 99, Mean Corpuscular Hemoglobin 32, Mean Corpuscular Hemoglobin Concent 32, Red Cell Distribution Width 14.0, Platelet Count 177, Mean Platelet Volume 9.4, Immature Granulocyte % (Auto) 1, Neutrophils (%) (Auto) 55, Lymphocytes (%) (Auto) 33, Monocytes (%) (Auto) 7, Eosinophils (%) (Auto) 4, Basophils (%) (Auto) 1, Neutrophils # (Auto) 3.3, Lymphocytes # (Auto) 2.0, Monocytes # (Auto) 0.4, Eosinophils # (Auto) 0.2, Basophils # (Auto) 0.0, Immature Granulocyte # (Auto) 0.1, Sodium Level 142, Potassium Level 4.2, Chloride Level 103, Carbon Dioxide Level 30, Anion Gap 9, Blood Urea Nitrogen 15, Creatinine 0.88, Estimat Glomerular Filtration Rate > 60, BUN/Creatinine Ratio 17, Glucose Level 107, Calcium Level 8.5, Corrected Calcium 9.1, Total Bilirubin 0.4, Aspartate Amino Transf (AST/SGOT) 31, Alanine Aminotransferase (ALT/SGPT) 26, Alkaline Phosphatase 60, Total Protein 6.0, Albumin 3.2 08/10/20 14:01: White Blood Count 6.0, Red Blood Count 3.33, Hemoglobin 10.8, Hematocrit 34, Mean Corpuscular Volume 101, Mean Corpuscular Hemoglobin 32, Mean Corpuscular Hemoglobin Concent 32, Red Cell Distribution Width 14.0, Platelet Count 178, Mean Platelet Volume 9.4, Immature Granulocyte % (Auto) 1, Neutrophils (%) (Auto) 58, Lymphocytes (%) (Auto) 27, Monocytes (%) (Auto) 9, Eosinophils (%) (Auto) 4, Basophils (%) (Auto) 1, Neutrophils # (Auto) 3.5, Lymphocytes # (Auto) 1.6, Monocytes # (Auto) 0.5, Eosinophils # (Auto) 0.3, Basophils # (Auto) 0.0, Immature Granulocyte # (Auto) 0.1, Sodium Level 139, Potassium Level 4.2, Chloride Level 100, Carbon Dioxide Level 31, Anion Gap 8, Blood Urea Nitrogen 14, Creatinine 0.84, Estimat Glomerular Filtration Rate > 60, BUN/Creatinine Ratio 17, Glucose Level 108, Calcium Level 8.9, Corrected Calcium 9.3, Total Bilirubin 0.4, Aspartate Amino Transf (AST/SGOT) 34, Alanine Aminotransferase (ALT/SGPT) 27, Alkaline Phosphatase 71, Total Protein 6.4, Albumin 3.5, Lactic Acid Level 0.94, Procalcitonin 0.06 08/10/20 14:10: Urine Opiates Screen NEGATIVE, Urine Oxycodone Screen POSITIVE, Urine Methadone Screen NEGATIVE, Urine Propoxyphene Screen NEGATIVE, Urine Barbiturates Screen NEGATIVE, Ur Tricyclic Antidepressants Screen NEGATIVE, Urine Phencyclidine Screen NEGATIVE, Urine Amphetamines Screen NEGATIVE, Urine Methamphetamines Screen NEGATIVE, Urine Benzodiazepines Screen POSITIVE, Urine Cocaine Screen NEGATIVE, Urine Cannabinoids Screen NEGATIVE Discharge Home Medications: Active Scripts Active Oxycontin (Oxycodone HCl) 10 Mg Tab.er.12h 10 Mg PO BID Percocet 5-325 mg Tablet (Oxycodone HCl/Acetaminophen) 1 Each Tablet 1 Tab PO Q4H PRN Tizanidine HCl 2 Mg Tablet 2 Mg PO Q8H PRN Atenolol 25 Mg Tablet 25 Mg PO DAILY 7 Days Hold for pulse less than 70 Reported Loratadine 10 Mg Tablet 10 Mg PO DAILY Proventil Hfa (Albuterol Sulfate) 6.7 Gm Hfa.aer.ad 2 Puff INH Q4H PRN Aspirin EC (Aspirin) 81 Mg Tablet.dr 81 Mg PO DAILY Temazepam 15 Mg Capsule 15 Mg PO HS Oxybutynin Chloride ER (Oxybutynin Chloride) 10 Mg Tab.er.24 10 Mg PO DAILY Pantoprazole Sodium 40 Mg Tablet.dr 40 Mg PO DAILY Hydrochlorothiazide 25 Mg Tablet 25 Mg PO DAILY Ramelteon 8 Mg Tablet 8 Mg PO HS Paroxetine HCl 20 Mg Tablet 20 Mg PO HS Macrobid 100 mg Capsule (Nitrofurantoin Monohyd/M-Cryst) 100 Mg Capsule 1 Tab PO DAILY Multivitamin 1 Each Tablet 1 Each PO DAILY Magnesium (Magnesium Oxide) 400 Mg Tablet 400 Mg PO DAILY Acidophilus (Lactobacillus Acidophilus) 1 Each Capsule 1 Each PO BID Iprat-Albut 0.5-3(2.5) mg/3 ml (Ipratropium/Albuterol Sulfate) 3 Ml Ampul.neb 3 Ml IH Q6H PRN Emergen-C 500 mg Chewable Tab (Vit C/Ascorb Sod/Multivit-Min) 500 Mg Tab.chew 1,000 Mg PO TID Cranberry (Cranberry Fruit) 400 Mg Tablet 400 Mg PO BID Flonase Allergy Relief (Fluticasone Propionate) 9.9 Ml [place].susp 2 [place] NSEACH HS Dicyclomine HCl 10 Mg Capsule 10 Mg PO TID PRN Colazal (Balsalazide Disodium) 750 Mg Capsule 1,500 Mg PO TID TAKES 2 (750MG) CAPS Instructions to patient/family Please see electronic discharge instructions given to patient. Diagnosis/Problems Diagnosis/Problems (1) Status post bilateral knee replacements (2) Ulcerative colitis (3) DEYA (obstructive sleep apnea) (4) Nocturnal hypoxia (5) Hypertension (6) GERD (gastroesophageal reflux disease) SHERRI CARBAJAL DO August 13, 2020 07:45
[2020-08-13 07:58] VITALS: BP 130/58
[2020-08-13] MEDS: MAGNESIUM OXIDE (MAG-OX)400 MG TAB PO SCH (08:00)
[2020-08-13] MEDS: OXYBUTYNIN (DITROPAN) 5 MG TAB PO SCH (08:00)
[2020-08-13] MEDS: ASPIRIN E.C. 81 MG (ECOTRIN) TAB PO SCH (08:00)
[2020-08-13] MEDS: LACTOBACILLUS ACIDOPHILUS (PROBIOTIC) CAPSULE PO SCH (08:01)
[2020-08-13] MEDS: LORATADINE (CLARITIN) 10 MG TAB PO SCH (08:01)
[2020-08-13] MEDS: oxyCODONE/APAP 5/325MG (PERCOCET 5) TABLET PO PRN ×2 (08:01→12:16)
[2020-08-13] MEDS: PANTOPRAZOLE 40 MG (PROTONIX) TAB PO SCH (08:01)
[2020-08-13] MEDS: BALSALAZIDE 750 MG PO SCH ×2 (08:02→12:41)
[2020-08-13 14:00] VITALS: BP 130/58
--- NOTE | 2020-08-15 11:43 | Therapy Team Discharge Summary ---
Therapy Discharge Summary Discharge Recommendations Date of Discharge August 13, 2020 at 14:00 Therapy D/C Recommendations: Home w/ Family Support Occupational Therapy Pt. seen by Occupational therapy in this facility to increase overall strength and independence with daily tasks. Pt. has met all goals. At discharge, pt. Mod I/I with tasks such as bathing/dressing/toileting. Pt. discharged home with family. No further OT warranted at this time. 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 2=Patient will verbalize/demonstrate understanding of assistive devices/modifications for ADL. 3=Patient will improve strength/tolerance for activity to enable patient to perform ADL's. STEVE HAJI OT August 15, 2020 11:43
--- NOTE | 2020-08-16 13:44 | Physician Query Clarification ---
PQ-Intro New Diagnosis Admission/Discharge Admission Date: Aug 05, 2020 at 14:24 Discharge Date: August 13, 2020 at 14:00 Dr. Ayers, The medical record reflects the following clinical scenario: History/Risk Factors: s/p masood knee replacements Clinical Findings: Abnormal Gait, Motor Weakness (lower extremities Treatment: rehab Question: What condition best reflects the above clinical scenario? What is the condition responsible for the masood knee replacements? Please document a response in the Progress Noter or Discharge Summary. 1. painful hardware 2. Other, with explanation of the clinical findings. 3. Clinically undetermined, no explanation for the clinical findings. PHYSICIAN RESPONSE What condition reflects above: 1 Please remember a lack of response to the above will prompt a phone page by [facility]/Coding staff. In responding to this query, please exercise your independent professional judgment. The purpose of this communication is to more accurately reflect the complexity of your patients condition. The fact that a question is asked does not imply that any particular answer is desired or expected. Thank you for your timely response to this clarification. Requestors name: Michell THIS PHYSICIAN QUERY FORM IS A PERMANENT PART OF THE MEDICAL RECORD MICHELL FORD August 16, 2020 13:44 SHERRI AYERS DO August 16, 2020 20:20
== END 2020-08-13 14:00 | disposition home health service (06) | DRG 949 ==
LOC: EDBD 14:24
PROVIDERS: ADMIT Internal Medicine; ATTEND Internal Medicine
DX: T84.84XD Pain due to internal orthopedic prosthetic devices, implants and grafts, subsequent encounter (principal); K51.90 Ulcerative colitis, unspecified, without complications; R09.02 Hypoxemia; I95.9 Hypotension, unspecified; R19.7 Diarrhea, unspecified; G47.33 Obstructive sleep apnea (adult) (pediatric); I10 Essential (primary) hypertension; K21.9 Gastro-esophageal reflux disease without esophagitis; M19.91 Primary osteoarthritis, unspecified site; F41.9 Anxiety disorder, unspecified; F32.9 Major depressive disorder, single episode, unspecified; Z79.82 Long term (current) use of aspirin; Z99.81 Dependence on supplemental oxygen; Z88.2 Allergy status to sulfonamides
CPT/HCPCS: 36415; 80053; 80306; 83605; 84145; 85025; 94640; 94760